=== PATIENT | male | born 1975 | race Caucasian/White ===

== ENCOUNTER 2017-12-18 21:49 | Emergency (ER) | payer BC, SELFPAY ==
[2017-12-18 21:49] VITALS: BP 170/111; PULSE 84; RESP 16; TEMP 36.8; O2SAT 98; BMI 28.7
--- NOTE | 2017-12-18 22:02 | RAD_ITS ---
STUDY: X-RAY CHEST REASON FOR EXAM: Male, 42 years old. Back pain. Known mediastinal AVM. TECHNIQUE: Frontal and lateral views of the chest. COMPARISON: Multiple previous studies including CT scan 11/30/2015. FINDINGS: The lungs are clear and expanded. There is no demonstrated pleural abnormality. No infiltrates. No effusions. Continued increased density behind the heart consistent with the patient's known mediastinal AVM. Normal size heart. Normal corin. Normal visualized pulmonary arteries. Normal visualized aortic arch and descending thoracic aorta. Normal visualized thoracic spine. Normal visualized ribs, clavicles, and shoulders. There is no demonstrated abnormality of the visualized soft tissue structures of the upper abdomen. RAD/Chest PA and Lateral IMPRESSION: No significant change or acute chest disease. Electronically Signed: Chuy Guerrero MD at 22:43 EST , Service support ,
[2017-12-18] MEDS: HYDROcodone Bitartrate/Apap 5/325 Tablet PO (22:11)
[2017-12-18] MEDS: Ondansetron ODT 4 MG Tablet PO (22:11)
--- NOTE | 2017-12-18 22:16 | ED.DCSUM_ITS ---
- ER Visit Summary Date of Service: 12/18/17 Chief Complaint: Right sided thoracic back pain History of Present Illness: The patient is a 42 M 3 of thoracic AVM presents to the emergency department with atraumatic right lateral thoracic back pain. The patient's had the symptoms for the past few days. He states it is worse when he gets up and moves. He states it is a dull ache in the morning but by the end of the day, the pain is rather significant. He states it hurts to touch or band. He denies chest pain or shortness of breath. He denies cough or fever. The patient was recently treated for influenza and finished his Tamiflu yesterday. He states he is really not had a significant cough. He has had no abdominal pain, hematuria, vomiting, or change in bowel habits. He states he has never had pain like this before. Physical Examination: Afebrile, vitals unremarkable. Well-appearing male no acute distress. Head is normocephalic, atraumatic. Pupil's equal round reactive, extraocular muscles intact. Neck supple. Heart regular rate and rhythm. Lungs clear, chest nontender. This is over the right posterior ribs around 10 and 11. There is no rash. There is no step-off. Abdomen soft, nontender, nondistended. No pulsatile mass. Patient has no spinal tenderness in the thoracic or lumbar area, no bony tenderness. Straight leg raise is negative bilaterally. 2+ symmetric lower extremity pulses. 2+ reflexes. No clonus. No weakness of dorsiflexion, plantar flexion, or extensor hallucis longus bilaterally. Test Results: Chest x-ray unremarkable. Screening labs are unremarkable. Urine shows no blood or infection. CT demonstrates constipation, evidence of known AVM, but no acute intra-abdominal process. Emergency Department Course and Treatment: The patient's pain did seem entirely reproducible. It does seem almost entirely muscular. The patient was given oral analgesics and I did obtain a chest x-ray which was normal. Patient and are very uncomfortable, given his medical history, and felt like there could be something else going on. I did discuss options with them. They wanted to pursue further workup including labs and a CT. This is obtained. The patient was given IV antispasmodics with improvement of his pain. His labs are normal. His CT shows constipation, evidence of his known AVM which I do not feel is contributing to his symptoms, but no other acute process. On reevaluation, the patient is resting comfortably. He has a nontender abdomen. There is no rash over his skin. I do feel that this is more likely muscle spasm or even a mild myositis given his recent influenza. I do feel the patient is safe for discharge. He will be given 1 day of analgesics and antispasmodics. Family was counseled on concerning symptoms and reasons to return. The patient will be discharged home. Treatment Plan: [] Disposition: Discharge Impression: 1. Right-sided thoracic spasm 2. Recent influenza This note was generated with [employer] dictation software. It may contain incorrect words, spelling, and punctuation that were not noted in review of the chart prior to signing ED Disposition - Plan for ED Patient: Chief Complaint: Back Instructions: ED Spasm Back No Trauma Prescriptions: Cyclobenzaprine [Flexeril] 10 mg PO TID PRN #20 tab PRN Reason: Muscle Spasm Referrals: Yoandy Crow MD [Primary Care Provider] -
--- NOTE | 2017-12-18 22:47 | CT_ITS ---
STUDY: CT ABDOMEN AND PELVIS WITHOUT CONTRAST REASON FOR EXAM: Male, 42 years old. Back pain RADIATION DOSAGE (If Supplied By Facility): CTDIvol = ( 14.54 ) mGy, DLP = ( 788.25 ) mGycm TECHNIQUE: Transaxial images were obtained from the dome of the diaphragm to the symphysis pubis without oral contrast, and without intravenous contrast. Sagittal and coronal images were reconstructed. Individualized dose optimization techniques were used for this CT. COMPARISON: November 30, [address] scan chest. FINDINGS: There is emphysematous change in the lung bases. There is a partially visualized abnormal appearing process with multiple nodules extending in and around the esophagus which on prior study dating back to March 29, 2015 is suggestive of a large venous plexus surrounding the subcarinal region with the vessel which may be extending from the left side inferior pulmonary vein. The visualized portions of the heart are within normal limits. The liver is homogeneous. The gallbladder is contracted. Normal spleen. Normal pancreas. Normal bilateral adrenal glands. Normal right kidney. Normal left kidney. Normal visualized stomach. Normal small intestine. There is moderate stool in the colon. The appendix is visualized and appears normal. Normal abdominal aorta. Normal inferior vena cava. Normal retroperitoneum. Normal urinary bladder. Normal visualized prostate gland. There is a small umbilical hernia containing fat. There is mild multilevel broad disc bulge, L3-L4 L4-L5 there is mild broad disc bulge with mild to moderate neural foramina narrowing. CT/Abdomen/Pelvis without Cont IMPRESSION: There is a large vascular mass which appears to have an extension from the left pulmonary vein was seen on prior study compatible with a mediastinal vascular malformation. Constipation and diverticulosis no evidence of diverticulitis. Pulmonary emphysema. Mild Degenerative disc disease. Electronically Signed: Rosalind Restrepo MD at 0:35 EST Tel , Service support ,
[2017-12-18 23:11] LABS: Bacteria 0 SEEN /hpf (None Seen); Mucous, Urine 0 SEEN /hpf (<or=2+); Red Blood Cells-Urine 0 SEEN /hpf (0-5); Squamous Epithelial Cells - UA 0 SEEN /hpf (0-5); White Blood Cells 0 SEEN /hpf (0-5)
[2017-12-18 23:13] LABS: Color, Urine Yellow (Yellow); Glucose, Dipstick Normal (Normal); Ketone-Dipstick Negative (Negative); Leukocyte Esterase-Dipstick Negative /ul (Negative); Nitrite-Dipstick Negative (Negative); Occult Blood-Urine Negative /ul (Negative); Protein-Dipstick Negative (Negative); Specific Gravity, Urine 1.015 (1.002-1.030); Urine Bilirubin Dipstick Negative (Negative); Urine Clarity Clear (Clear); Urine Urobilinogen Normal (Normal); Urine pH 6.5 (5.0 - 8.0)
[2017-12-18 23:13] LABS: Absolute Lymphocyte Count 3.34 X10^3/ul (0.83-4.51); Absolute Neutrophil Count 3.6 X10^3/uL (2.0-7.7); Basophil# 0.06 X10^3/uL; Basophil% 0.8 % (0-1); Eosinophil# 0.26 X10^3/uL; Eosinophils% 3.4 % (0-5); Hematocrit 42.3 % (40-54); Hemoglobin 14.2 g/dl (13.0-16.5); Lymphocyte # 3.34 X10^3/ul (4.0); Lymphocyte % 43.3 % (19-41); Mean Corp Hgb Conc 33.6 g/gl (32-36); Mean Corpuscular Volume 89.4 fL (80-94); Mean Platelet Vol. 12.6 fl (6.2-12.0); Monocyte% 6.5 % (0-10); Neutrophil # 3.55 X10^3/uL (2.7-7.7); Neutrophil % 45.9 % (47-70); POSITIVE COUNT NO; POSITIVE DIFFERENTIAL NO; POSITIVE MORPHOLOGY NO; Platelet Count 226 K/mm3 (150-450); RBC Distribution Width CV 12.2 % (11.6-14.6); RBC Distribution Width SD 39.8 fl (35.1-43.9); Red Blood Count 4.73 M/mm3 (4.6-6.2); White Blood Count 7.7 K/mm3 (4.4-11.0)
[2017-12-18 23:19] LABS: Hyaline Cast 0-5 SEEN /lpf (0-5)
[2017-12-18 23:28] LABS: AST(SGOT) 17 U/L (15-37); Alanine Aminotransfer ALT/SGPT 36 U/L (16-61); Albumin, Serum 3.6 g/dL (3.2-5.0); Alkaline Phosphatase 85 U/L (45-117); Anion Gap 5 (5-15); BUN 11 mg/dL (7-18); Bilirubin, Direct 0.07 mg/dL (0.00-0.30); Calcium,Total 8.5 mg/dL (8.5-10.1); Chloride 105 mmol/L (98-107); EST Glomerular Filtration Rate 88 mL/min (>60); Est Glom Filt Rate - Afr Amer 106 mL/min (>60); Estimated Creatinine Clearance 107.78 ml/min; Globulin 3.4 g/dL (2.2-4.2); Glucose 102 mg/dL (74-106); Potassium 3.7 mmol/L (3.5-5.1); Sodium Level 141 mmol/L (136-145)
[2017-12-18] MEDS: LORazepam 2 MG/ML Syringe 0.5 MG IV (23:49)
[2017-12-18 23:51] VITALS: BP 134/90; PULSE 83; RESP 16; O2SAT 96
[2017-12-19] MEDS: HYDROcodone Bitartrate/Apap 5/325 Tablet PO (00:49)
[2017-12-19 00:52] VITALS: BP 127/79; PULSE 77; RESP 16; O2SAT 94
--- NOTE | 2017-12-19 00:52 | ED.RN ---
IV DC'ED, CATHETER INTACT, SMALL GAUZE DRESSING PLACED. DISCHARGE INSTRUCTIONS GIVEN TO AND REVIEWED WITH PATIENT, PATIENT DENIES QUESTIONS OR CONCERNS AND VOICES UNDERSTANDING OF DISCHARGE INSTRUCTIONS. PT AMBULATES OUT OF ROOM WITHOUT DIFFICULTY.
== END 2017-12-19 00:53 | disposition home or self-care (01) ==
PROVIDERS: Emergency Provider Emergency Medicine; Family Provider Family Medicine; PCP Family Medicine
DX: M62.830 Muscle spasm of back (principal); Z87.09 Personal history of other diseases of the respiratory system; Z86.73 Personal history of transient ischemic attack (TIA), and cerebral infarction without residual deficits
CPT/HCPCS: 71046; 74176; 80048; 80076; 81001; 85025; 96374; 99284; A4216

== ENCOUNTER 2018-02-09 22:44 | Emergency (ER) | payer BC, SELFPAY ==
[2018-02-09 22:45] VITALS: BP 150/102; PULSE 78; RESP 15; TEMP 36.7; O2SAT 95; BMI 27.7
[2018-02-09] MEDS: Ipratropium/Albuterol Sulfate 3 ML AMPUL.NEB INHALATION (23:00)
--- NOTE | 2018-02-09 23:01 | ED.DCSUM_ITS ---
- ER Visit Summary Date of Service: 02/09/18 Chief Complaint: Shortness of breath History of Present Illness: The patient is a 42 M who was cleaning the bathroom tonight and inhaled the fumes of the cleaning solution. They did bring the bottle with him and appears the active ingredient as bleach. Patient did reportedly open the windows and turned on fans. He was initially improving but as the night has progressed he feels more short of breath. He tried albuterol inhaler without improvement. He does report cough with occasional sputum production. He denies chest pain. Past history significant for CVA/TIA, asthma, migraines, and mediastinal hemangioma. He is on Eliquis chronically. Physical Examination: Blood pressure is 150/102, temperature 98.1, heart rate 78 , respiratory rate 15, pulse ox 95% room air. Patient sitting upright in bed no acute distress. He speaking full sentences. Head neck examination is normal. Heart is regular rate and rhythm. Lung sounds are grossly clear but slightly diminished. I appreciate no wheezing or rhonchi. Abdomen is soft nontender. Test Results: Two-view chest x-ray is unremarkable. Emergency Department Course and Treatment: Patient was given dose of prednisone and a DuoNeb treatment. Patient states initially he thought that helped his breathing, but now it seems to be about the same. Repeat evaluation lungs are clear with good air movement. Patient is taken off the nasal cannula oxygen he was put on for comfort. Oxygen saturations maintained in the mid 90s. He complains of feeling as if there is something in his throat. On examination he has mild posterior pharyngeal drainage but no tonsillar or uvular enlargement. He is tolerating secretions well. Head of the bed is elevated at only 50?. He is able to tolerate p.o. fluids without difficulty. Patient will continue to use his albuterol inhaler at home if needed and will be given an additional 4 days of prednisone. Treatment Plan: [] Disposition: Discharge Impression: Pneumonitis This note was generated with [employer] dictation software. It may contain incorrect words, spelling, and punctuation that were not noted in review of the chart prior to signing ED Disposition - Plan for ED Patient: Chief Complaint: Shortness of Breath Referrals: Yoandy Crow MD [Primary Care Provider] -
[2018-02-09] MEDS: predniSONE 20 MG Tablet 60 MG PO (23:02)
[2018-02-09 23:03] VITALS: PULSE 78; RESP 14
[2018-02-09 23:04] VITALS: O2SAT 96
--- NOTE | 2018-02-09 23:10 | RAD_ITS ---
STUDY: X-RAY CHEST REASON FOR EXAM: Male, 42 years old. SOB TECHNIQUE: Frontal and lateral views of the chest. COMPARISON: None. FINDINGS: The lungs are clear and expanded. There is no demonstrated pleural abnormality. Normal size heart. Normal mediastinum and corin. Normal visualized pulmonary arteries. Normal visualized aortic arch and descending thoracic aorta. Normal visualized thoracic spine. Remote right rib trauma. There is no demonstrated abnormality of the visualized soft tissue structures of the upper abdomen. RAD/Chest PA and Lateral IMPRESSION: No acute pulmonary findings. Electronically Signed: Lalo Suh MD at 23:36 EDT Tel , Service support ,
--- NOTE | 2018-02-09 23:53 | ED.DEP ---
ED Disposition - Plan for ED Patient: Disposition: Home or Assisted Living Chief Complaint: Shortness of Breath Instructions: ED Inhalation Chemical Prescriptions: Prednisone [Deltasone] 60 mg PO DAILY #12 tablet Referrals: Yoandy Crow MD [Primary Care Provider] - 3-5 Days
[2018-02-10 00:16] VITALS: BP 148/85; PULSE 81; RESP 20; O2SAT 93
== END 2018-02-10 00:16 | disposition home or self-care (01) ==
PROVIDERS: Emergency Provider Emergency Medicine; Family Provider Family Medicine; PCP Family Medicine
DX: J18.9 Pneumonia, unspecified organism (principal); J45.909 Unspecified asthma, uncomplicated; I69.354 Hemiplegia and hemiparesis following cerebral infarction affecting left non-dominant side; G43.909 Migraine, unspecified, not intractable, without status migrainosus; D18.03 Hemangioma of intra-abdominal structures; Z79.01 Long term (current) use of anticoagulants; Z79.899 Other long term (current) drug therapy
CPT/HCPCS: 71046; 94640; 99283

== ENCOUNTER 2018-04-06 17:39 | Emergency (ER) | payer BC, SELFPAY ==
[2018-04-06 17:39] VITALS: BP 171/100; PULSE 77; RESP 16; TEMP 36.4; O2SAT 95; BMI 26.2
--- NOTE | 2018-04-06 18:39 | ED.VISSUMM ---
- ER Visit Summary Date of Service: 04/06/18 Chief Complaint: Laceration History of Present Illness: The patient is a 42 M presenting for evaluation secondary laceration. Patient states that he cut himself on his head tremors in his left ankle. Tetanus status is up-to-date. Patient states that he is on Eliquis for treatment of AVM Physical Examination: Physical exam unremarkable other than examination of the left ankle. Over the lateral portion of the ankle there is a 3 cm laceration without any evidence of involvement of the underlying tissues. Test Results: None indicated Emergency Department Course and Treatment: Patient presented secondary to a laceration. Tetanus was already up-to-date. Laceration was anesthetized using 5 cc 1% lidocaine. It was copiously irrigated with normal saline. Wound was explored through full range of motion there was no evidence of foreign bodies. Wound was then approximated using 5 simple interrupted 4-0 nylon sutures. Good approximation patient tolerated this well. Patient will follow up with primary care for suture removal in 5-7 days Disposition: Discharge Impression: 1. 3 cm left leg laceration 2. Laceration repair This note was generated with [employer] dictation software. It may contain incorrect words, spelling, and punctuation that were not noted in review of the chart prior to signing ED Disposition - Plan for ED Patient: Disposition: Home or Assisted Living Chief Complaint: Laceration Diagnosis: Leg laceration Instructions: ED Laceration All Referrals: Yoandy Crow MD [Primary Care Provider] - 7 Days for suture removal
== END 2018-04-06 19:10 | disposition home or self-care (01) ==
PROVIDERS: Emergency Provider Emergency Medicine; Family Provider Family Medicine; PCP Family Medicine
DX: S91.012A Laceration without foreign body, left ankle, initial encounter (principal); W45.8XXA Other foreign body or object entering through skin, initial encounter; Y93.H2 Activity, gardening and landscaping; Y92.9 Unspecified place or not applicable; Z79.01 Long term (current) use of anticoagulants; Q27.30 Arteriovenous malformation, site unspecified
CPT/HCPCS: 12002; 99284

== ENCOUNTER → 2018-04-17 06:03 | Outpatient (CLI) | payer BC, SELFPAY ==
[2018-04-17 07:54] LABS: Hematocrit 44.1 % (40-54); Hemoglobin 15.2 g/dl (13.0-16.5); Mean Corp Hgb Conc 34.5 g/gl (32-36); Mean Corpuscular Volume 89.8 fL (80-94); Mean Platelet Vol. 13.4 fl (6.2-12.0); Platelet Count 222 K/mm3 (150-450); RBC Distribution Width CV 12.2 % (11.6-14.6); RBC Distribution Width SD 39.8 fl (35.1-43.9); Red Blood Count 4.91 M/mm3 (4.6-6.2); White Blood Count 7.5 K/mm3 (4.4-11.0)
[2018-04-17 08:00] LABS: Scan Indicated on CBC? Y/N NO
[2018-04-17 08:23] LABS: ALB/GLOB Ratio 1.1 RATIO (0.9-2.4); AST(SGOT) 22 U/L (15-37); Alanine Aminotransfer ALT/SGPT 29 U/L (16-61); Albumin, Serum 3.9 g/dL (3.2-5.0); Alkaline Phosphatase 81 U/L (45-117); Anion Gap 7 (5-15); BUN 14 mg/dL (7-18); BUN/Creat Ratio 12.6 RATIO (10-20); Calcium,Total 8.8 mg/dL (8.5-10.1); Chloride 104 mmol/L (98-107); Creatinine, Serum 1.11 mg/dL (0.70-1.30); EST Glomerular Filtration Rate 78 mL/min (>60); Est Glom Filt Rate - Afr Amer 94 mL/min (>60); Globulin 3.7 g/dL (2.2-4.2); Glucose 79 mg/dL (74-106); Potassium 3.8 mmol/L (3.5-5.1); Protein, Total 7.6 g/dL (6.4-8.2); Sodium Level 141 mmol/L (136-145)
== END ==
PROVIDERS: Family Provider Family Medicine; PCP Family Medicine; Visit Provider Family Medicine
DX: Q27.39 Arteriovenous malformation, other site (principal)
CPT/HCPCS: 36415; 80053; 85027

== ENCOUNTER 2018-12-01 15:02 | Emergency (ER) | payer BC, SELFPAY ==
[2018-12-01 15:03] VITALS: BP 166/101; PULSE 75; RESP 14; TEMP 36.6; O2SAT 97; BMI 27.6
--- NOTE | 2018-12-01 15:18 | CT_ITS ---
STUDY: CT BRAIN WITHOUT CONTRAST REASON FOR EXAM: Male, 43 years old. Headache for 4 days RADIATION DOSAGE (If Supplied By Facility): CTDIvol = ( 44.99 ) mGy, DLP = ( 829.85 ) mGycm TECHNIQUE: Transaxial CT imaging of the brain was performed without administration of intravenous contrast material. Individualized dose optimization techniques were used for this CT. COMPARISON: 11/30/2015 FINDINGS: Normal soft tissue structures. Normal calvarium. Normal size ventricles and extra-axial spaces for the patient's age. Normal white matter tracts of the cerebral hemispheres. Normal basal ganglia and thalami. Normal brainstem. Small low density foci of the cerebellum, right more than left similar since the prior study. There is no intracranial hemorrhage. There are no findings of an acute ischemic infarction. Normal visualized paranasal sinuses. CT/Brain/Head without Contrast IMPRESSION: 1. No acute intracranial hemorrhage or mass effect. 2. Stable bilateral cerebellar lacunar infarctions. Electronically Signed: Shabbir Bhatti MD at 16:10 EST , Service support ,
--- NOTE | 2018-12-01 16:19 | ED.VISSUMM ---
- ER Visit Summary Date of Service: 12/01/18 Chief Complaint: Headache History of Present Illness: The patient is a 43 M with a headache for 5 days. This started after he was flipped during taekwondo. He landed on his bilateral scapulae but complains of frontal headache. He reports decreased sleep and occasional slurring of his words. No loss of consciousness. No vomiting. No amnesia. No other symptoms. Patient does take Eliquis for what he describes as AVM in his chest. Patient denies any chest pain or other symptoms. Physical Examination: Afebrile and vital signs unremarkable. Head and neck grossly atraumatic. Neck is nontender. HEENT exam unremarkable. Cranial nerves grossly intact. Good strength and sensation. Otherwise exam unremarkable. Test Results: CT brain showed no acute abnormalities. Emergency Department Course and Treatment: Patient presents with a headache after a traumatic injury. I suspect he had a concussion. His exam is reassuring but given that he is on Eliquis, I did a CT which was unremarkable. I advised the patient to stop taekwondo and contact sports if he is taking Eliquis. He was given concussion precautions and will follow up with his family doctor. Treatment Plan: As above Disposition: Discharge Impression: 1. Concussion without loss of consciousness This note was generated with [employer] dictation software. It may contain incorrect words, spelling, and punctuation that were not noted in review of the chart prior to signing ED Disposition - Plan for ED Patient: Referrals: Yoav Almanzar MD [Primary Care Provider] -
--- NOTE | 2018-12-01 16:22 | ED.DCSUM_ITS ---
- ER Visit Summary Date of Service: 12/01/18 Chief Complaint: Headache History of Present Illness: The patient is a 43 M with a headache for 5 days. This started after he was flipped during taekwondo. He landed on his bilateral scapulae but complains of frontal headache. He reports decreased sleep and oc casional slurring of his words. No loss of consciousness. No vomiting. No amnesia. No other symptoms. Patient does take Eliquis for what he describes as AVM in his chest. Patient denies any chest pain or other symptoms. Physical Examination: Afebrile and vital signs unremarkable. Head and neck grossly atraumatic. Neck is nontender. HEENT exam unremarkable. Cranial nerves grossly intact. Good strength and sensation. Otherwise exam unremarkable. Test Results: CT brain showed no acute abnormalities. Emergency Department Course and Treatment: Patient presents with a headache after a traumatic injury. I suspect he had a concussion. His exam is reassuring but given that he is on Eliquis, I did a CT which was unremarkable. I advised the patient to stop taekwondo and contact sports if he is taking Eliquis. He was given concussion precautions and will follow up with his family doctor. Treatment Plan: As above Disposition: Discharge Impression: 1. Concussion without loss of consciousness This note was generated with [employer] dictation software. It may contain incorrect words, spelling, and punctuation that were not noted in review of the chart prior to signing ED Disposition - Plan for ED Patient: Referrals: Yoav Almanzar MD [Primary Care Provider] -
--- NOTE | 2018-12-01 16:22 | ED.DEP ---
ED Disposition - Plan for ED Patient: Instructions: ED Concussion Referrals: Yoav Almanzar MD [Primary Care Provider] -
[2018-12-01 16:32] VITALS: BP 141/92; PULSE 63; RESP 17; O2SAT 94
--- NOTE | 2018-12-01 16:33 | ED.RN ---
DISCHARGE INSTRUCTIONS GIVEN TO AND REVIEWED WITH PATIENT, PATIENT DENIES QUESTIONS OR CONCERNS AND VOICES UNDERSTANDING OF DISCHARGE INSTRUCTIONS. PT AMBULATES OUT OF ROOM WITHOUT DIFFICULTY.
== END 2018-12-01 16:33 | disposition home or self-care (01) ==
PROVIDERS: Emergency Provider Emergency Medicine; Family Provider Family Medicine; PCP Family Medicine
DX: S06.0X0A Concussion without loss of consciousness, initial encounter (principal); X58.XXXA Exposure to other specified factors, initial encounter; Y93.75 Activity, martial arts; Y92.9 Unspecified place or not applicable
CPT/HCPCS: 70450; 99282

== ENCOUNTER 2018-12-13 00:11 | Observation (INO) | payer BC, SELFPAY ==
[2018-12-13] VITALS (10 sets, daily range): BP systolic 122–181; BP diastolic 73–118; PULSE 68–98; RESP 14–20; TEMP 36.4–36.9; O2SAT 94–99; BMI 27.0
--- NOTE | 2018-12-13 00:24 | RAD_ITS ---
HISTORY: CP EXAM:XR Chest 2 Views: COMPARISON: 02/09/[address] chest 11/30/2015 FINDINGS: EKG leads in place. With comparison previous, no definite change. Chronic appearing middle mediastinal mass and left hilar enlargement. Prominent lung volumes. No acute infiltrate seen. No vascular congestion or pleural effusion. No pneumothorax. RAD/Chest PA and Lateral IMPRESSION: 1. No definite acute disease or significant change. 2. Chronic appearing mediastinal mass and left hilar enlargement. at 0308 Reported and signed by: Jose Moreno MD Electronically Signed: Jose Moreno, at 3:07 EST Tel , Service support ,
--- NOTE | 2018-12-13 00:24 | EKG12_ITS ---
Test Reason : REPEAT Blood Pressure : / mmHG Vent. Rate : 067 BPM Atrial Rate : 067 BPM P-R Int : 148 ms QRS Dur : 094 ms QT Int : 408 ms P-R-T Axes : 037 017 016 degrees QTc Int : 431 ms Normal sinus rhythm Normal ECG Confirmed by MANUEL BAPTISTE, MICHAEL ([id number]), associate entertainment editor MARVIN CAGE ([id number]) on 12/16/2018 5:19:21 PM Referred By: WALTER Confirmed By:MICHAEL JACKSON MD
--- NOTE | 2018-12-13 00:34 | ED.VISSUMM ---
- ER Visit Summary Date of Service: 12/13/18 Chief Complaint: Chest pain History of Present Illness: The patient is a 43 M presenting with left-sided nonradiating chest pain that started at around 8 PM last evening. It has been fairly constant. He describes it as a pulsating palpitation like feeling. No pressure or aching. No shortness of breath or diaphoresis. He was at rest when it started. It was not worse with exertion nor was it pleuritic. He denies lower extremity pain or swelling. Denies history of PE or DVT. He is on Eliquis because he had a TIA several years ago but denies any known history of atrial fibrillation. He has never had cardiac issues otherwise. No family history of cardiac disease at young age. He has never smoked. 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 He was actually working on a project for work when his pain started today. He feels strongly that his pain is secondary to anxiety. Physical Examination: He is hypertensive but other vitals are within normal limits. He is not in distress. Neck is supple. Heart tones are regular and without murmur. Lungs are clear bilaterally. Abdomen is soft and nontender. No tenderness along lower extremity venous system, palpable cords, or evidence of DVT. He is awake and alert. Mental status is normal. Normal thought content. No suicidal thoughts or ideation. Test Results: CBC and BMP normal. EKG unremarkable. Chest x-ray interpreted independently by me is negative for acute process. There are several chronic changes that do not appear much different than his last imaging. Troponin was indeterminate however at 0.05 and his pain started only approximately 4 hours ago. I do therefore feel that he meets criteria for admission/serial enzymes. His pain returned at one point while he was here in the emergency department and an EKG was repeated. It appears again normal. No ischemic changes. Emergency Department Course and Treatment: He was given aspirin as well as hydralazine because his blood pressure was 180 systolic on arrival. He looks much better on reexamination and is now pain-free. 2- EKGs. 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 He states that that is the last time he had a chest CT but he was told that it was a benign issue that would not require intervention. I discussed the case with the hospitalist and the plan will be to admit to telemetry however, we are all in agreement that repeating a CT angiogram is reasonable at this point given the location of his pain. The results of this are still pending. Treatment Plan: Plan for telemetry admission depending on results of CT angiogram Disposition: Admit, stable Impression: Initial encounter chest pain rule out NH, indeterminate troponin level This note was generated with [employer] dictation software. It may contain incorrect words, spelling, and punctuation that were not noted in review of the chart prior to signing ED Disposition - Plan for ED Patient:
[2018-12-13 00:35] LABS: Absolute Lymphocyte Count 4.58 X10^3/ul (0.83-4.51); Absolute Neutrophil Count 4.3 X10^3/uL (2.0-7.7); Basophil# 0.05 X10^3/uL; Basophil% 0.5 % (0-1); Hematocrit 44.9 % (40-54); Lymphocyte # 4.58 X10^3/ul (4.0); Lymphocyte % 46.7 % (19-41); Mean Corp Hgb Conc 33.4 g/gl (32-36); Mean Corpuscular Hgb 30.1 pg (27.0-32.0); Mean Platelet Vol. 12.4 fl (6.2-12.0); Monocyte# 0.71 X10^3/uL; Monocyte% 7.2 % (0-10); Neutrophil # 4.25 X10^3/uL (2.7-7.7); Neutrophil % 43.4 % (47-70); Platelet Count 255 K/mm3 (150-450); RBC Distribution Width CV 12.6 % (11.6-14.6); RBC Distribution Width SD 41.3 fl (35.1-43.9); Red Blood Count 4.99 M/mm3 (4.6-6.2); White Blood Count 9.8 K/mm3 (4.4-11.0)
[2018-12-13] MEDS: Aspirin 81 MG TAB.CHEW 324 MG PO (00:35)
[2018-12-13 00:36] LABS: POSITIVE COUNT NO; POSITIVE DIFFERENTIAL NO; POSITIVE MORPHOLOGY NO
[2018-12-13 00:59] LABS: Anion Gap 6 (5-15); BUN 14 mg/dL (7-18); BUN/Creat Ratio 12.8 RATIO (10-20); Calcium,Total 8.9 mg/dL (8.5-10.1); Chloride 103 mmol/L (98-107); Creatinine, Serum 1.09 mg/dL (0.70-1.30); EST Glomerular Filtration Rate 79 mL/min (>60); Est Glom Filt Rate - Afr Amer 96 mL/min (>60); Estimated Creatinine Clearance 100.79 ml/min; Glucose 91 mg/dL (74-106); Potassium 3.5 mmol/L (3.5-5.1); Sodium Level 138 mmol/L (136-145)
--- NOTE | 2018-12-13 01:42 | EKG12_ITS ---
Test Reason : CP Blood Pressure : / mmHG Vent. Rate : 070 BPM Atrial Rate : 070 BPM P-R Int : 142 ms QRS Dur : 092 ms QT Int : 402 ms P-R-T Axes : 031 016 022 degrees QTc Int : 434 ms Normal sinus rhythm Normal ECG Confirmed by MANUEL BAPTISTE, MICHAEL ([id number]), publication editor MARVIN CAGE ([id number]) on 12/16/2018 5:19:39 PM Referred By: SOPHIA Confirmed By:MICHAEL JACKSON MD
[2018-12-13] MEDS: hydrALAZINE 20 MG/ML Vial 10 MG IV (01:47)
--- NOTE | 2018-12-13 01:51 | CT_ITS ---
STUDY: CTA CHEST REASON FOR EXAM: Male, 43 years old. Chest pain RADIATION DOSAGE (If Supplied By Facility): CTDIvol = ( 17.34 ) mGy, DLP = ( 580.15 ) mGycm TECHNIQUE: The examination was performed with the intravenous administration of 100ML ml of Isovue 370 contrast material. Post-processing of the angiographic images was performed, with multiplanar reformation and 3D reconstruction. COMPARISON: To 916 FINDINGS: Normal enhancement of the main pulmonary artery and right and left pulmonary arteries. Normal enhancement of the bilateral peripheral pulmonary arteries. There is no demonstrated pulmonary embolism. There is a subcarinal hypervascular mass with multiple punctate calcifications which has been noted on prior studies and has not changed. Normal thoracic aorta and visualized great vessels. There is no demonstrated aortic dissection. Normal heart and pericardium. There is no pathologic mediastinal adenopathy appreciated otherwise. Normal hilar regions. Normal visualized trachea and bronchi. Multiple blebs are noted in the left lower lobe. Normal pulmonary parenchyma. Normal pleura. Normal chest wall structures. Normal osseous structures. Normal visualized upper abdomen. CT/CTA Chest W/WO Contrast IMPRESSION: There is no demonstrated pulmonary embolism. There is a subcarinal hypervascular mass with multiple punctate calcifications which has been noted on prior studies and has not changed. There is no demonstrated aortic dissection. Normal heart and pericardium. There is no pathologic mediastinal adenopathy appreciated otherwise. Multiple blebs are noted in the left lower lobe. Electronically Signed: Neptali Higgins MD at 3:37 EST , Service support ,
[2018-12-13] MEDS: 0.9% Normal Saline 1,000 ML 999 ML IV (02:29)
[2018-12-13] MEDS: Ondansetron 4 MG/2 ML Vial IV (02:29)
[2018-12-13 04:01] LABS: T4 Free Direct 0.91 ng/dL (0.76-1.46)
--- NOTE | 2018-12-13 04:07 | EKG12_ITS ---
Test Reason : CP Blood Pressure : / mmHG Vent. Rate : 072 BPM Atrial Rate : 072 BPM P-R Int : 144 ms QRS Dur : 090 ms QT Int : 384 ms P-R-T Axes : 029 014 020 degrees QTc Int : 420 ms Normal sinus rhythm Normal ECG Confirmed by MAYRA BAPTISTE, OBEY ([id number]), corporate recycling manager MARVIN CAGE ([id number]) on 12/17/2018 4:56:17 PM Referred By: HEATHER Confirmed By:OBEY NUNEZ MD
[2018-12-13] MEDS: Atorvastatin Calcium 80 MG Tablet PO (05:02)
[2018-12-13] MEDS: 0.9% NaCl Peripheral Flush Adult/Peds IV (05:02)
[2018-12-13] MEDS: Lisinopril 20 MG Tablet PO (05:02)
[2018-12-13] MEDS: Aspirin E.C. 81 MG Tablet PO (05:02)
[2018-12-13 05:12] LABS: Prothrombin Time (Protime)PT. 13.1 SECONDS (11.7-14.9)
[2018-12-13 05:13] LABS: Partial Thromboplast Time 29.7 Seconds (24.1-36.2)
--- NOTE | 2018-12-13 06:00 | PCM.HP.STD ---
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 His pain was located at the left side of his chest and it was nonradiating. Associated with his symptoms is nausea without vomiting. He denied sweating. He describes his pain as episodic. His pain is dull and sharp. He denies any ameliorating or aggravating factor. He was working on his computer when his pain started. He reported that recently he has been stressed at work. He reported that when his pain comes on he sees stars in the room. Because of history of thoracic AVM emergency department doctor did a CTA of the chest which was unremarkable At emergency department his troponin was elevated. For the patient complains of cold intolerance for which TSH was ordered at emergency departments. TSH returned elevated. 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 History of stroke with residual effects (Chronic) Allergies No Known Allergies Allergy (Verified 12/13/18 00:16) Home Medications: Ambulatory Orders Medication Instructions Recorded Apixaban [Eliquis] 5 mg PO BID #60 tablet 12/01/15 Surgical History: no surgical history Psychiatric History: Anxiety Lives: Spouse/ Significant Other Smoking Status: Never smoker Tobacco Use: Non-smoker - *Family History Maternal History Items: Cancer - Breast CA in mother, 50s. Maternal grandfather had heart attack when he was in his 60s. Paternal History Items: Heart Disease, - - Parkinson's disease. Review of Systems Constitutional: Denies: Chills, Fever, Weight Change HEENT: Denies: Head Aches, Sinus Congestion, Sinus Drainage Cardiovascular: Reports: Chest Pain Respiratory: Denies: Cough, Shortness of breath at rest, Sputum production Gastrointestinal: Reports: Nausea. Denies: Abdominal Pain, Vomiting Genitourinary: Denies: Dysuria Musculoskeletal: Denies: Joint Pain, Joint Tenderness Skin: Denies: Rash, Wounds Neurological: Denies: Numbness, Tingling, Focal weakness Psychiatric: Reports: Anxiety. Denies: Depression, Homicidal Ideations, Suicidal Ideations Hematologic/ Lymphatic: Denies: Easy Bruising, Easy Bleeding VTE Information - Inpt Only VTE Present on Admission: No VTE Mechan Device Prophylaxis: None VTE Pharm Prophylaxis ordered?: No Reason prophylaxis not ordered:: Treatment Not Indicated - Continue Eliquis for AVM Patient Problems: Active and Suspected Problems Chest pain (Acute) - Physical Exam General: Alert, Oriented x3, Cooperative HEENT: Atraumatic, PERRLA, EOMI, Normocephalic Neck: Supple, No JVD, Negative Carotid Bruits Lungs: Clear to auscultation, Normal air movement Cardiovascular: Regular rate, No murmurs Abdomen: Bowel Sounds Present, Soft, Non Tender Extremities: No edema, Capillary Refill Less than 3 Seconds Skin: No rashes, No breakdown Musculoskeletal: No Tenderness to Palpation of Joints or Extremities Neurological: Neuro grossly intact Psych/Mental Status: Anxious Vital Signs Temp Pulse Resp BP Pulse Ox 97.6 F L 68 16 140/83 H 94 12/13/18 04:30 12/13/18 04:30 12/13/18 04:30 12/13/18 04:30 12/13/18 04:30 Oxygen Flow Rate (L/min) 2 Oxygen Delivery Method Room Air Weight: 94.3 kg Body Mass Index (BMI) 27.0 Finger Stick Blood Glucose 88 Laboratory Tests Past 24 Hrs 12/13/18 12/13/18 12/13/18 00:25 00:25 01:55 WBC 9.8 RBC 4.99 Hgb 15.0 Hct 44.9 MCV 90.0 MCH 30.1 MCHC 33.4 RDW 12.6 RDW Differential 41.3 Plt Count 255 MPV 12.4 H Immature Gran % (Auto) 0.200 Neut % (Auto) 43.4 L Lymph % (Auto) 46.7 H [place] % (Auto) 7.2 Eos % (Auto) 2.0 Baso % (Auto) 0.5 Absolute Neuts (auto) 4.3 Absolute Lymphs (auto) 4.58 H Total Counted Not Reportable PT 13.1 INR 1.0 APTT 29.7 Sodium 138 Potassium 3.5 Chloride 103 Carbon Dioxide 29.0 Anion Gap 6 BUN 14 Creatinine 1.09 Estim Creat Clear Calc 100.79 Est GFR (MDRD) Af Amer 96 Est GFR (MDRD) Non-Af 79 BUN/Creatinine Ratio 12.8 Glucose 91 Calcium 8.9 Troponin I 0.056 H TSH 5.20 H Free T4 12/13/18 03:35 WBC RBC Hgb Hct MCV MCH MCHC RDW RDW Differential Plt Count MPV Immature Gran % (Auto) Neut % (Auto) Lymph % (Auto) [place] % (Auto) Eos % (Auto) Baso % (Auto) Absolute Neuts (auto) Absolute Lymphs (auto) Total Counted PT INR APTT Sodium Potassium Chloride Carbon Dioxide Anion Gap BUN Creatinine Estim Creat Clear Calc Est GFR (MDRD) Af Amer Est GFR (MDRD) Non-Af BUN/Creatinine Ratio Glucose Calcium Troponin I 0.066 H TSH Free T4 0.91 Assessment/Plan All Active Problems Chest pain (Acute) TIA (transient ischemic attack) (Resolved) The patient is a 43 year old M with a significant history of a TIA; hypertension and thoracic AVM who presented to the emergency department because of progressively worsening chest pain; and with elevated troponin and TSH. Chest pain Admit to a monitored bed on PCU CXR independently reviewed confirms no acute cardiopulmonary process but with mediastinal mass which is chronic. Follow-up CTA showed mediastinal mass is unchanged. EKG independently reviewed confirms sinus rhythm Old CTA was reviewed and showed medicine of mass. ASA 81 mg p.o. daily Morphine as needed for pain We will check lipid panel. High intensity statin x1 dose ordered. Serial cardiac enzymes Stat EKG as needed for chest pain Will Start patient on lisinopril because of concomitant hypertension. Hydralazine as needed ordered. Treadmill Stress test in the AM if the cardiac enzymes are not severely elevated Hypertension. Patient's reported that patient has had elevated blood pressure multiple times outpatient and after each time the plan plan was to watch his blood pressure. Because of multiple elevated blood pressure it is probable that patient has hypertension. We will start patient on lisinopril. Hydralazine as needed. Trend blood pressure and adjust blood pressure medication Elevated TSH Patient is noted to have elevated TSH. Free T4 ordered return unremarkable. Will order free T3. AVM Reportedly patient had a TIA and workup at that time revealed mediastinal AVM. Eliquis continued DVT prophylaxis: Not indicated in the setting of the patient on Eliquis for AVM. Eliquis continued. Code Visit OBSV E&M: 46475 Initial observation care L3
[2018-12-13 06:45] LABS: Hematocrit 43.1 % (40-54); Hemoglobin 14.8 g/dl (13.0-16.5); Mean Corp Hgb Conc 34.3 g/gl (32-36); Mean Corpuscular Hgb 30.7 pg (27.0-32.0); Mean Corpuscular Volume 89.4 fL (80-94); Mean Platelet Vol. 12.5 fl (6.2-12.0); Platelet Count 221 K/mm3 (150-450); RBC Distribution Width CV 12.4 % (11.6-14.6); RBC Distribution Width SD 40.4 fl (35.1-43.9); Red Blood Count 4.82 M/mm3 (4.6-6.2); White Blood Count 7.1 K/mm3 (4.4-11.0)
[2018-12-13 06:46] LABS: Scan Indicated on CBC? Y/N NO
[2018-12-13 07:22] LABS: Anion Gap 7 (5-15); BUN 11 mg/dL (7-18); BUN/Creat Ratio 11.4 RATIO (10-20); Calcium,Total 8.5 mg/dL (8.5-10.1); Chloride 107 mmol/L (98-107); Creatinine, Serum 0.96 mg/dL (0.70-1.30); EST Glomerular Filtration Rate 91 mL/min (>60); Est Glom Filt Rate - Afr Amer 110 mL/min (>60); Estimated Creatinine Clearance 114.44 ml/min; Free T3 3.4 pg/mL (2.18-3.98); Glucose 90 mg/dL (74-106); Potassium 3.8 mmol/L (3.5-5.1); Sodium Level 139 mmol/L (136-145)
--- NOTE | 2018-12-13 10:34 | STRESSREP_ITS ---
Stress Test Report Date: 12-13-2018 Procedure: Exercise tolerance test/imaging study Indications: Chest pain Consent: Per the patient Procedure: The patient exercised on a Rashaad protocol for 10 minutes completing Stage III and 1 minute of stage IV achieving a peak heart rate of 187 bpm (104 % predicted maximal heart rate) with a peak blood pressure 200/80 mmHg and a peak MET capacity of At 11 METs. The baseline ECG demonstrated . The peak exercise ECG demonstrated normal sinus rhythm with no obvious ECG changes . There were no cardiac dysrhythmias pretest, during exercise, or recovery. The functional capacity was considered good . There was no complaint of chest discomfort during exercise or recovery. The examination was discontinued secondary to dyspnea . Impression: 1. Technically adequate (percent predicted maximal heart rate greater than 85%) exercise tolerance test 2. Peak exercise ECG with no obvious ECG changes 3. There were no cardiac dysrhythmias pretest, during exercise, or recovery 4. Nuclear images pending Myocardial perfusion imaging study: Technique: The patient was injected with 12 mCi of technetium 99m Cardiolite and subsequently rest SPECT Cardiolite nuclear imaging was obtained in the horizontal long, vertical long, and short axis views. The patient exercised on a Rashaad protocol for 10 minutes completing Stage III and 1 minute of Stage IV achieving a peak heart rate of 187 bpm (104 % predicted maximal heart rate) with a peak blood pressure 200/80 mmHg and a peak MET capacity of 11 METs. The patient was injected with 34.3 mCi of technetium 99m Cardiolite and subsequently stress SPECT Cardiolite nuclear imaging was obtained in the horizontal long, vertical long, and short axis views. A gated Cardiolite study at peak stress was obtained. Interpretation: Rest and stress SPECT Cardiolite nuclear imaging status post realignment, normalization, and attenuation correction, demonstrates the appearance of relative uniform tracer uptake and myocardial perfusion appearing within normal limits. There is end systolic thickening and brightening. The gated Cardiolite study demonstrates myocardial thickening and inward wall motion. The reported LVEF is 64 %. Impression: 1. Rest and stress SPECT Cardiolite nuclear imaging demonstrate relative uniform tracer uptake and myocardial perfusion appearing within normal limits. 2. The gated Cardiolite study reports an LVEF of 64 %. This note was generated with [employer] software. It may contain incorrect words, spelling, and punctuation that were not noted in checking the note before signing.
[2018-12-13] MEDS: APIXABAN 5 MG TABLET PO (11:37)
--- NOTE | 2018-12-13 11:44 | DCINST_ITS ---
- Discharge Diagnoses Current Active Problems: Current Active and Chronic Problems Chest pain (Acute) Reason(s) for Visit for Discharge Instructions: Chest pain You will use the following diet at home:: Cardiac Your food should be the consistency of: Regular Your liquids should be the consistency of: Regular/Thin Discharge Activity: Return to Normal Activity Additional Instructions: Follow-up with your primary care doctor within 2 weeks. You will need to repeat your thyroid function test in 4-6 weeks. Continue to take all your medications as prescribed. Measure your blood pressure daily and show a log of yoiur pressures to your primary doctor. Allergies/Adverse Reactions: Allergies No Known Allergies Allergy (Verified 12/13/18 00:16) Medications to take at Discharge Apixaban [Eliquis] 5 mg PO BID #60 tablet 12/01/15 Lisinopril [Zestril] 20 mg PO DAILY #30 tablet 12/13/18 The following prescriptions were given: Lisinopril [Zestril] 20 mg PO DAILY #30 tablet Primary Care Physician: Yoav Almanzar MD [Primary Care Provider] - Please follow up with your Primary Care Physician in: as scheduled Test Results: Test results from this visit will be discussed in further detail at your follow- up appointment, if applicable. Proposed Discharge Date: 12/13/18
--- NOTE | 2018-12-13 12:13 | PCM.DC.SUM ---
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 History of stroke with residual effects (Chronic) Hospital Course and Treatment Imaging Results: 12/13/18 05:55 Nuclear Stress Test - Treadmil [NM] AM (NON MEDS) None Operations: None Procedures: Stress test Summary of Care Provided: The patient is a 43 year old M past medical history of TIA, hypertension, thoracic AVM, on Eliquis who presented to the emergency department with complaints of worsening chest pain that started 4 hours prior to his admission. Chest pain was associated with nausea but no vomiting or diaphoresis. Patient admits to being very stressed out at work. CT of the chest was unremarkable in the emergency department. His troponin was very mildly elevated. Patient was admitted to telemetry bed, monitored, troponins remained marginally elevated. He had a TSH done that was 5.2, free T4 and free T3 were however normal. Denied any weight gain or constipation or dry skin or fatigue. He has underwent an exercise stress test that was negative. He was recommended to follow-up with his primary care doctor for repeat TSH in 4-6 weeks. Subjective: On the day of discharge, patient was seen and examined. Denied any new complaints. Stress test was negative. I discussed more than 20 minutes on patient's plan of care going forward. - Physical Exam General: Alert, Oriented x3, Cooperative, No apparent distress HEENT: Atraumatic, PERRLA, EOMI, Normocephalic Oral: Moist Mucosa Neck: Supple, No JVD, Negative Carotid Bruits Lungs: Clear to auscultation, Normal air movement Cardiovascular: Regular rate, Regular Rhythm, Normal S1, Normal S2, No murmurs Abdomen: Bowel Sounds Present, Soft, Non Tender, Non-Distended, No Hepato-splenomegaly Extremities: No edema Skin: No rashes, No breakdown Musculoskeletal: No Tenderness to Palpation of Joints or Extremities Lymphatic: No Cervical, Supraclavicular, or Inguinal Adenopathy Neurological: Cranial nerves II-XII grossly intact, Neuro grossly intact Psych/Mental Status: Normal Affect, Appropriate Vital Signs Temp Pulse Resp BP Pulse Ox 98.5 F 71 17 122/73 H 95 12/13/18 09:50 12/13/18 11:51 12/13/18 09:50 12/13/18 09:50 12/13/18 09:50 Oxygen Flow Rate (L/min) 2 Oxygen Delivery Method Room Air Weight: 94.3 kg Body Mass Index (BMI) 27.0 Finger Stick Blood Glucose 88 Intake and Output for Last 24 Hours 12/11/18 12/12/18 12/13/18 23:59 23:59 23:59 Intake Total 650 / 650 Balance 650 / 650 Laboratory Tests Past 24 Hrs 12/13/18 12/13/18 12/13/18 00:25 00:25 01:55 WBC 9.8 RBC 4.99 Hgb 15.0 Hct 44.9 MCV 90.0 MCH 30.1 MCHC 33.4 RDW 12.6 RDW Differential 41.3 Plt Count 255 MPV 12.4 H Immature Gran % (Auto) 0.200 Neut % (Auto) 43.4 L Lymph % (Auto) 46.7 H [place] % (Auto) 7.2 Eos % (Auto) 2.0 Baso % (Auto) 0.5 Absolute Neuts (auto) 4.3 Absolute Lymphs (auto) 4.58 H Total Counted Not Reportable PT 13.1 INR 1.0 APTT 29.7 Sodium 138 Potassium 3.5 Chloride 103 Carbon Dioxide 29.0 Anion Gap 6 BUN 14 Creatinine 1.09 Estim Creat Clear Calc 100.79 Est GFR (MDRD) Af Amer 96 Est GFR (MDRD) Non-Af 79 BUN/Creatinine Ratio 12.8 Glucose 91 Calcium 8.9 Troponin I 0.056 H TSH 5.20 H Free T4 Free T3 pg/dL 12/13/18 12/13/18 12/13/18 03:35 06:30 06:30 WBC 7.1 RBC 4.82 Hgb 14.8 Hct 43.1 MCV 89.4 MCH 30.7 MCHC 34.3 RDW 12.4 RDW Differential 40.4 Plt Count 221 MPV 12.5 H Immature Gran % (Auto) Neut % (Auto) Lymph % (Auto) [place] % (Auto) Eos % (Auto) Baso % (Auto) Absolute Neuts (auto) Absolute Lymphs (auto) Total Counted PT INR APTT Sodium Potassium Chloride Carbon Dioxide Anion Gap BUN Creatinine Estim Creat Clear Calc Est GFR (MDRD) Af Amer Est GFR (MDRD) Non-Af BUN/Creatinine Ratio Glucose Calcium Troponin I 0.066 H 0.070 H TSH Free T4 0.91 Free T3 pg/dL 12/13/18 06:30 WBC RBC Hgb Hct MCV MCH MCHC RDW RDW Differential Plt Count MPV Immature Gran % (Auto) Neut % (Auto) Lymph % (Auto) [place] % (Auto) Eos % (Auto) Baso % (Auto) Absolute Neuts (auto) Absolute Lymphs (auto) Total Counted PT INR APTT Sodium 139 Potassium 3.8 Chloride 107 Carbon Dioxide 25.0 Anion Gap 7 BUN 11 Creatinine 0.96 Estim Creat Clear Calc 114.44 Est GFR (MDRD) Af Amer 110 Est GFR (MDRD) Non-Af 91 BUN/Creatinine Ratio 11.4 Glucose 90 Calcium 8.5 Troponin I TSH Free T4 Free T3 pg/dL 3.4 Discharge Diet: Low fat/ Low Cholesterol, 2000 mg Sodium Diet Discharge Activity: Return to Normal Activity Home Medications: Medications to take at Discharge Apixaban [Eliquis] 5 mg PO BID #60 tablet 12/01/15 Lisinopril [Zestril] 20 mg PO DAILY #30 tablet 12/13/18 Following Prescrptions Were Given to Patient: Lisinopril [Zestril] 20 mg PO DAILY #30 tablet Primary Care Physician: Yoav Almanzar MD [Primary Care Provider] - Please follow up with your Primary Care Physician in: as scheduled Disposition: Home Minutes spent on discharge:: 45 Patient Condition:: Stable Medical Necessity - Tobacco Use Smoking Status: Never smoker Tobacco Use: Non-smoker Meaningful Use Info Meaningful Use Diagnoses (Choose all that apply): None applicable Code Visit Inpatient E&M: 48729 Disch Hosp
== END 2018-12-13 11:42 | disposition home or self-care (01) ==
LOC: ED 01:05 → PCU 01:52
PROVIDERS: Admitting Provider Hospitalist; Emergency Provider Emergency Medicine; Family Provider Family Medicine; PCP Family Medicine; Visit Provider Internal Medicine
DX: R07.89 Other chest pain (principal); Q27.39 Arteriovenous malformation, other site; I10 Essential (primary) hypertension; Z79.01 Long term (current) use of anticoagulants; I69.354 Hemiplegia and hemiparesis following cerebral infarction affecting left non-dominant side
CPT/HCPCS: 36415; 71046; 71275; 78452; 80048; 84439; 84443; 84481; 84484; 85025; 85027; 85610; 85730; 93005; 93017; 96374; 96375; 99218; 99283; A9500; J7030; Q9967; A4216; G0378; J2405

== ENCOUNTER 2018-12-14 21:36 | Observation (INO) | payer BC, SELFPAY ==
[2018-12-13 04:38] VITALS: BMI 27.0
[2018-12-14 21:37] VITALS: BP 115/95; PULSE 71; RESP 16; TEMP 36.7; O2SAT 97; BMI 29.6
--- NOTE | 2018-12-14 21:45 | EKG12_ITS ---
Test Reason : ADMIT CP Blood Pressure : / mmHG Vent. Rate : 060 BPM Atrial Rate : 060 BPM P-R Int : 144 ms QRS Dur : 096 ms QT Int : 418 ms P-R-T Axes : 026 016 015 degrees QTc Int : 418 ms Normal sinus rhythm Normal ECG Confirmed by MANUEL BAPTISTE, MICHAEL ([id number]), photography editor MARVIN CAGE ([id number] on 12/18/2018 10:59:25 AM Referred By: Isaak Sosa Confirmed By:MICHAEL JACKSON MD
[2018-12-14 21:52] VITALS: O2SAT 98
[2018-12-14] MEDS: Aspirin 81 MG TAB.CHEW 324 MG PO (21:54)
--- NOTE | 2018-12-14 21:56 | RAD_ITS ---
STUDY: X-RAY CHEST REASON FOR EXAM: Male, 43 years old. Chest pain TECHNIQUE: Single frontal view of the chest. COMPARISON: 12/13/2018 x-ray [address] CT FINDINGS: The lungs are clear and expanded. There is no demonstrated pleural abnormality. Normal size heart. Stable mediastinal and left hilar masses. Normal visualized pulmonary arteries. Normal visualized aortic arch and descending thoracic aorta. Normal visualized thoracic spine. Normal visualized ribs, clavicles, and shoulders. There is no demonstrated abnormality of the visualized soft tissue structures of the upper abdomen. RAD/Chest 1 View (Portable) IMPRESSION: No acute pulmonary findings. Stable mediastinal and left hilar masses. Electronically Signed: Lalo Suh MD at 23:00 EST Tel , Service support ,
[2018-12-14 22:01] LABS: Absolute Neutrophil Count 4.7 X10^3/uL (2.0-7.7); Basophil# 0.05 X10^3/uL; Basophil% 0.5 % (0-1); Eosinophil# 0.15 X10^3/uL; Eosinophils% 1.6 % (0-5); Hematocrit 45.1 % (40-54); Hemoglobin 15.1 g/dl (13.0-16.5); Lymphocyte % 39.1 % (19-41); Mean Corp Hgb Conc 33.5 g/gl (32-36); Mean Corpuscular Hgb 30.2 pg (27.0-32.0); Mean Corpuscular Volume 90.2 fL (80-94); Mean Platelet Vol. 12.5 fl (6.2-12.0); Monocyte# 0.72 X10^3/uL; Monocyte% 7.8 % (0-10); Neutrophil # 4.67 X10^3/uL (2.7-7.7); Neutrophil % 50.8 % (47-70); Platelet Count 238 K/mm3 (150-450); RBC Distribution Width CV 12.5 % (11.6-14.6); RBC Distribution Width SD 40.9 fl (35.1-43.9); White Blood Count 9.2 K/mm3 (4.4-11.0)
[2018-12-14 22:02] LABS: POSITIVE COUNT NO; POSITIVE DIFFERENTIAL NO; POSITIVE MORPHOLOGY NO
[2018-12-14 22:13] LABS: Anion Gap 6 (5-15); BUN 15 mg/dL (7-18); BUN/Creat Ratio 14.2 RATIO (10-20); Calcium,Total 8.8 mg/dL (8.5-10.1); Chloride 110 mmol/L (98-107); Creatinine, Serum 1.06 mg/dL (0.70-1.30); EST Glomerular Filtration Rate 82 mL/min (>60); Est Glom Filt Rate - Afr Amer 99 mL/min (>60); Estimated Creatinine Clearance 103.64 ml/min; Glucose 100 mg/dL (74-106); Potassium 3.9 mmol/L (3.5-5.1); Sodium Level 142 mmol/L (136-145)
--- NOTE | 2018-12-14 22:25 | ED.VISSUMM ---
- ER Visit Summary Date of Service: 12/14/18 Chief Complaint: [Chest pain] History of Present Illness: The patient is a 43 M who presents with chest pain for a few days he was recently admitted had a normal stress test, he presents again with radiation to his left arm. He has no fever or chills. He has no recent upper respiratory infection. His pain is mild to moderate radiating to his left arm. It is achy. Physical Examination: Not appear in acute distress. Moist mucous membranes, no obvious facial deformity No C-spine tenderness supple neck. Regular rate and rhythm without any obvious murmurs Clear lungs bilaterally speaking in full sentences without any obvious respiratory distress Abdomen soft and nontender no guarding or rebound Moves all extremities without any difficulty or pain. Skin does not show any obvious rashes or lesions, no trauma. Alert oriented ?3 with no gross focal deficit Emergency Department Course and Treatment: Patient again has elevated troponins, they are intermediate at 0.062. After discussing with Dr. Bhat I did admit the patient again for repeat workup, I added a CRP and ESR. He had a normal PE study just yesterday I will not repeat it. Disposition: Admit for cardiac workup Impression: Chest pain [place] intermediate troponin This note was generated with [employer] dictation software. It may contain incorrect words, spelling, and punctuation that were not noted in review of the chart prior to signing ED Disposition - Plan for ED Patient: Referrals: Yoav Almanzar MD [Primary Care Provider] -
--- NOTE | 2018-12-14 22:28 | ED.DCSUM_ITS ---
- ER Visit Summary Date of Service: 12/14/18 Chief Complaint: [Chest pain] History of Present Illness: The patient is a 43 M who presents with chest pain for a few days he was recently admitted had a normal stress test, he presents again with radiation to his left arm. He has no fever or chills. He has no recent upper respiratory infection. His pain is mild to moderate radiating to his left arm. It is achy. Physical Examination: Not appear in acute distress. Moist mucous membranes, no obvious facial deformity No C-spine tenderness supple neck. Regular rate and rhythm without any obvious murmurs Clear lungs bilaterally speaking in full sentences without any obvious respira tory distress Abdomen soft and nontender no guarding or rebound Moves all extremities without any difficulty or pain. Skin does not show any obvious rashes or lesions, no trauma. Alert oriented ?3 with no gross focal deficit Emergency Department Course and Treatment: Patient again has elevated troponins, they are intermediate at 0.062. After discussing with Dr. Bhat I did admit the patient again for repeat workup, I added a CRP and ESR. He had a normal PE study just yesterday I will not repeat it. Disposition: Admit for cardiac workup Impression: Chest pain [place] intermediate troponin This note was generated with [employer] dictation software. It may contain incorrect words, spelling, and punctuation that were not noted in review of the chart prior to signing ED Disposition - Plan for ED Patient: Referrals: Yoav Almanzar MD [Primary Care Provider] -
[2018-12-14 22:33] LABS: Erythrocyte Sedimentation Rate 3 mm/hr (0-15)
--- NOTE | 2018-12-14 22:35 | HP.PCM_ITS ---
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 This new chest pain began about 9 hours prior to presentation at the emergency department. The chest pain is episodic and it is located on the left side of his chest. He rated the severity as between a 6 to a 10. He described the chest pain as at times sharp; and at times dull and throbbing. He reported the chest pain does not radiates to his arm however he has noticed bilateral leg pain. Of note patient has a history of a TIA and occasionally experiences left-sided weakness. Although at the time of examination he did not have left-sided w eakness. Patient has nausea without vomiting. He denies diaphoresis. Emergency department doctor discussed the day the case with social media project manager, Dr. Bhat and cardiology will see patient in the a.m. 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 History of stroke with residual effects (Chronic) Allergies No Known Allergies Allergy (Verified 12/13/18 00:16) Home Medications: Ambulatory Orders Medication Instructions Recorded Apixaban [Eliquis] 5 mg PO BID #60 tablet 12/01/15 Lisinopril [Zestril] 20 mg PO DAILY #30 tablet 12/13/18 Surgical History: no surgical history Psychiatric History: Anxiety Lives: Spouse/ Significant Other Smoking Status: Never smoker Alcohol: None - *Family History Maternal History Items: Cancer - Breast CA in mother, 50s. Maternal grandfather had heart attack when he was in his 60s. Paternal History Items: Heart Disease, - - Parkinson's disease. Review of Systems Constitutional: Denies: Chills, Fever, Weight Change HEENT: Denies: Head Aches, Sinus Congestion, Sinus Drainage Cardiovascular: Reports: Chest Pain. Denies: Palpitations Respiratory: Denies: Cough, Shortness of breath at rest, Sputum production Gastrointestinal: Reports: Nausea. Denies: Abdominal Pain, Vomiting Genitourinary: Denies: Dysuria Musculoskeletal: Reports: Leg Pain. Denies: Joint Pain, Joint Tenderness Skin: Denies: Rash, Wounds Neurological: Denies: Numbness, Tingling, Focal weakness Psychiatric: Reports: Anxiety. Denies: Depression, Homicidal Ideations, Suicidal Ideations Hematologic/ Lymphatic: Denies: Easy Bruising, Easy Bleeding VTE Information - Inpt Only VTE Present on Admission: No VTE Mechan Device Prophylaxis: None VTE Pharm Prophylaxis ordered?: No Reason prophylaxis not ordered:: Treatment Not Indicated - Took Eliquis at home. And received therapeutic dose of Lovenox. - Physical Exam General: Alert, Oriented x3, Cooperative HEENT: Atraumatic, PERRLA, EOMI, Normocephalic Neck: Supple, No JVD, Negative Carotid Bruits Lungs: Clear to auscultation, Normal air movement Cardiovascular: Regular rate, No murmurs Abdomen: Bowel Sounds Present, Soft, Non Tender Extremities: No edema, Capillary Refill Less than 3 Seconds Skin: No rashes, No breakdown Musculoskeletal: No Tenderness to Palpation of Joints or Extremities Neurological: Neuro grossly intact Psych/Mental Status: Normal Affect, Appropriate Vital Signs Temp Pulse Resp BP Pulse Ox 98.1 F 71 16 115/95 H 98 12/14/18 21:37 12/14/18 21:37 12/14/18 21:37 12/14/18 21:37 12/14/18 21:52 Oxygen Flow Rate (L/min) 2 Oxygen Delivery Method Nasal Cannula Weight: 102 kg Body Mass Index (BMI) 29.6 Finger Stick Blood Glucose 88 Laboratory Tests Past 24 Hrs 12/14/18 12/14/18 12/14/18 20:50 20:50 20:50 WBC 9.2 RBC 5.00 Hgb 15.1 Hct 45.1 MCV 90.2 MCH 30.2 MCHC 33.5 RDW 12.5 RDW Differential 40.9 Plt Count 238 MPV 12.5 H Immature Gran % (Auto) 0.200 Neut % (Auto) 50.8 Lymph % (Auto) 39.1 Towns % (Auto) 7.8 Eos % (Auto) 1.6 Baso % (Auto) 0.5 Absolute Neuts (auto) 4.7 Absolute Lymphs (auto) 3.60 Total Counted Not Reportable ESR 3 Sodium 142 Potassium 3.9 Chloride 110 H Carbon Dioxide 26.0 Anion Gap 6 BUN 15 Creatinine 1.06 Estim Creat Clear Calc 103.64 Est GFR (MDRD) Af Amer 99 Est GFR (MDRD) Non-Af 82 BUN/Creatinine Ratio 14.2 Glucose 100 Calcium 8.8 Troponin I 0.062 H C-React Prot High Sens 12/14/18 20:50 WBC RBC Hgb Hct MCV MCH MCHC RDW RDW Differential Plt Count MPV Immature Gran % (Auto) Neut % (Auto) Lymph % (Auto) Towns % (Auto) Eos % (Auto) Baso % (Auto) Absolute Neuts (auto) Absolute Lymphs (auto) Total Counted ESR Sodium Potassium Chloride Carbon Dioxide Anion Gap BUN Creatinine Estim Creat Clear Calc Est GFR (MDRD) Af Amer Est GFR (MDRD) Non-Af BUN/Creatinine Ratio Glucose Calcium Troponin I C-React Prot High Sens Pending Assessment/Plan All Active Problems Chest pain (Acute) TIA (transient ischemic attack) (Resolved) The patient is a 43 year old M with a significant history of a TIA; hypertension; and 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 Chest pain Admit to a monitored bed on PCU CXR independently reviewed confirms no acute cardiopulmonary process but with mediastinal mass which is chronic. Follow-up CTA on 12/13/18 showed mediastinal mass is unchanged. EKG independently reviewed confirms sinus rhythm Old CTA was reviewed and showed medicine of mass. Received aspirin 325 mg at emergency department. ASA 81 mg p.o. daily Morphine as needed for pain We will check lipid panel. Lipitor 80 mg nightly. Noted to have elevated troponin level in the same range as on previous on admission 1 day ago. Serial cardiac enzymes. High intensity C-reactive protein unremarkable. ESR unremarkable. Stat EKG as needed for chest pain We will continue patient on lisinopril that was started on previous admission. Since patient has not taken his second dose of Eliquis for the day, and Eliquis is indeed past due, discussed emergency department doctor to give him one-time dose of Lovenox at therapeutic dose. Patient takes Eliquis for AVM. Would hold Eliquis at this time. Hypertension. On admission his blood pressure was not within goal. Lisinopril continued Trend blood pressure and adjust blood pressure medication. Elevated TSH On his admission on 12/13/18 his TSH was elevated at 5.20. Follow-up free T4 and free T3 were normal. Patient was advised to follow up outpatient. AVM Reportedly patient had a TIA and workup at that time revealed mediastinal AVM. He takes Eliquis for his AVM. Patient received therapeutic dose of Lovenox on admission. Would hold Eliquis for now. DVT prophylaxis: Not indicated in the setting of patient receiving therapeutic dose of Lovenox. Code Visit OBSV E&M: 00699 Initial observation care L3
[2018-12-14 22:38] LABS: CRP, High Sensitivity Cardiac 1.61 mg/L
[2018-12-14 23:05] VITALS: BP 138/80; PULSE 68; RESP 13; O2SAT 97
[2018-12-14] MEDS: Enoxaparin 100 MG/ML Syringe SC (23:18)
--- NOTE | 2018-12-14 23:45 | EKG12_ITS ---
Test Reason : CP ADMIT Blood Pressure : / mmHG Vent. Rate : 067 BPM Atrial Rate : 067 BPM P-R Int : 142 ms QRS Dur : 094 ms QT Int : 410 ms P-R-T Axes : 036 017 019 degrees QTc Int : 433 ms Sinus rhythm with Premature atrial complexes Otherwise normal ECG Confirmed by MANUEL BAPTISTE, MICHAEL ([id number]), assistant film editor MARVIN CAGE ([id number]) on 12/18/2018 10:53:26 AM Referred By: Isaak Sosa Confirmed By:MICHAEL JACKSON MD
[2018-12-14 23:46] VITALS: BMI 27.3
[2018-12-14 23:47] VITALS: BP 141/87; BP 143/97; PULSE 71; RESP 13; TEMP 36.5; O2SAT 95
[2018-12-14 23:56] VITALS: BMI 27.3
[2018-12-15] VITALS (17 sets, daily range): BP systolic 110–132; BP diastolic 60–76; PULSE 56–80; RESP 12–16; TEMP 36.4–36.7; O2SAT 94–98
[2018-12-15] MEDS: Atorvastatin Calcium 80 MG Tablet PO ×2 (00:16→21:14)
[2018-12-15] MEDS: Metoprolol Tartrate 25 MG Tablet 12.5 MG PO ×2 (02:05→21:14)
[2018-12-15] MEDS: Clopidogrel Bisulfate 300 MG Tablet PO (02:07)
[2018-12-15 03:18] LABS: International Normalized Ratio 1.1; Prothrombin Time (Protime)PT. 14.1 SECONDS (11.7-14.9)
[2018-12-15 04:21] LABS: Cholesterol 156 mg/dL (200); High Density Lipoprotein 41 mg/dL; Triglycerides 146 mg/dL; Very Low Density Lipoprotein 29 mg/dL (5-40)
[2018-12-15] MEDS: Morphine 2 MG/ML Syringe IV ×3 (09:51→17:47)
[2018-12-15] MEDS: Aspirin E.C. 81 MG Tablet PO (09:51)
[2018-12-15] MEDS: Lisinopril 20 MG Tablet PO (09:51)
--- NOTE | 2018-12-15 09:52 | EKG12_ITS ---
Test Reason : CP ADMIT Blood Pressure : / mmHG Vent. Rate : 067 BPM Atrial Rate : 067 BPM P-R Int : 140 ms QRS Dur : 092 ms QT Int : 398 ms P-R-T Axes : 041 026 021 degrees QTc Int : 420 ms Normal sinus rhythm Normal ECG Confirmed by MANUEL BAPTISTE, MICHEAL ([id number]), editorial specialist MARVIN CAGE ([id number] on 12/18/2018 10:49:06 AM Referred By: Isaak Sosa Confirmed By:MICHAEL JACKSON MD
[2018-12-15] MEDS: Ondansetron 4 MG/2 ML Vial IV (10:44)
--- NOTE | 2018-12-15 12:54 | ECHOCS_ITS ---
Reason For Study: CHEST PAIN Procedure This was a 2D Doppler, Color Flow transthoracic echocardiogram. The study was technically difficult. Contrast injection was performed. Exam performed portable in patient room. Left Ventricle Normal LV size. Mid cavitary false tendon noted. Left ventricular systolic function is normal. The estimated ejection fraction is 60 %. No evidence for diastolic dysfunction. No regional wall motion abnormalities noted. Right Ventricle Normal right ventricle. Normal systolic function. Atria Normal left atrium. Normal right atrium. No doppler evidence for ASD. Mitral Valve There is no mitral annular calcification. Normal mitral valve. Trivial mitral valve insufficiency. Tricuspid Valve Normal tricuspid valve. Trivial tricuspid valve insufficiency. Unable to estimate RV systolic pressure/pulmonary artery pressure due to technically difficult study. Aortic Valve Trisinus/trileaflet aortic valve. Normal aortic valve. Pulmonic Valve The pulmonic valve is not well visualized. Great Vessels Normal sized aortic root. Pericardium/Pleural No pericardial effusion. Medication Diluted definity 2ml given slow IV push to enhance endocardial definition. MMode/2D Measurements & Calculations LVIDd: 4.9 cm IVSd: 0.96 cm Ao root diam: 3.4 cm LVIDs: 3.3 cm LVPWd: 0.97 cm RVDd: 3.3 cm FS: 31.9 % LAV(MOD-bp): 37.6 ml LVAd ap4: 36.9 cm2 SV(MOD-sp4): 75.0 ml LAV(MOD-bp) Indexed: 17.4 ml/m2 EDV(MOD-sp4): 130.2 ml LAV(MOD-sp2): 35.4 ml EDV(sp4-el): 137.1 ml LAV(MOD-sp4): 34.6 ml LVAs ap4: 21.4 cm2 ESV(MOD-sp4): 55.1 ml ESV(sp4-el): 57.8 ml EF(MOD-sp4): 57.6 % EF(sp4-el): 57.8 % SV(sp4-el): 79.2 ml LA A4 area: 14.8 cm2 RA A4 area: 13.4 cm2 Doppler Measurements & Calculations MV E max ron: 63.5 cm/sec Lat Peak E' Ron: 11.8 cm/sec Med Peak E' Ron: 9.9 cm/sec MV A max ron: 44.8 cm/sec E/E' lat: 5.4 E/E' med: 6.4 MV E/A: 1.4 Interpretation Summary The study was technically difficult. Contrast injection was performed. Left ventricular systolic function is normal. The estimated ejection fraction is 60 %. Mid cavitary false tendon noted. Trivial mitral valve insufficiency. Trivial tricuspid valve insufficiency. Unable to estimate RV systolic pressure/pulmonary artery pressure due to technically difficult study. No evidence for diastolic dysfunction. Ordering Physician: Dusty Bhat Referring Physician: MENDEZ JOSE Performed By: Denise Mcgrath, RDCS, RVT
[2018-12-15] MEDS: Clopidogrel Bisulfate 75 MG Tablet PO (13:51)
[2018-12-15] MEDS: 0.9% NaCl Peripheral Flush Adult/Peds IV ×2 (13:56→17:48)
--- NOTE | 2018-12-15 14:21 | PCM.PROGNOTE ---
Subjective: Pt currently sitting upright in bed NAD. He has no chest pain since receiving morphine. It comes and goes seconds to minutes. At times very mild left sided pain other times severe like he is being stabbed. Had some mild nausea, resolved with zofran - Physical Exam General: Alert, Oriented x3, Cooperative HEENT: Atraumatic, PERRLA, EOMI, Normocephalic Neck: Supple, No JVD, Negative Carotid Bruits Lungs: Clear to auscultation, Normal air movement Cardiovascular: Regular rate, No murmurs Abdomen: Bowel Sounds Present, Soft, Non Tender Extremities: No edema, Capillary Refill Less than 3 Seconds Skin: No rashes, No breakdown Musculoskeletal: No Tenderness to Palpation of Joints or Extremities Neurological: Cranial nerves II-XII grossly intact Psych/Mental Status: Normal Affect, Appropriate, Alert and oriented to time, place, person, mood and affect Vital Signs Temp Pulse Resp BP Pulse Ox 97.8 F 80 16 132/72 H 98 12/15/18 09:41 12/15/18 11:00 12/15/18 09:41 12/15/18 09:41 12/15/18 09:41 Oxygen Flow Rate (L/min) 2 Oxygen Delivery Method Room Air Weight: 207 lb 1.6 oz Body Mass Index (BMI) 27.3 Finger Stick Blood Glucose 88 Intake and Output for Last 24 Hours 12/13/18 12/14/18 12/15/18 23:59 23:59 23:59 Intake Total 0 / 0 557 / 557 Balance 0 / 0 557 / 557 Laboratory Tests Past 24 Hrs 12/14/18 12/14/18 12/14/18 00:10 20:50 20:50 WBC 9.2 RBC 5.00 Hgb 15.1 Hct 45.1 MCV 90.2 MCH 30.2 MCHC 33.5 RDW 12.5 RDW Differential 40.9 Plt Count 238 MPV 12.5 H Immature Gran % (Auto) 0.200 Neut % (Auto) 50.8 Lymph % (Auto) 39.1 [place] % (Auto) 7.8 Eos % (Auto) 1.6 Baso % (Auto) 0.5 Absolute Neuts (auto) 4.7 Absolute Lymphs (auto) 3.60 Total Counted Not Reportable ESR PT INR Sodium 142 Potassium 3.9 Chloride 110 H Carbon Dioxide 26.0 Anion Gap 6 BUN 15 Creatinine 1.06 Estim Creat Clear Calc 103.64 Est GFR (MDRD) Af Amer 99 Est GFR (MDRD) Non-Af 82 BUN/Creatinine Ratio 14.2 Glucose 100 Calcium 8.8 Troponin I 0.061 H 0.062 H C-React Prot High Sens Triglycerides Cholesterol LDL Cholesterol VLDL Cholesterol HDL Cholesterol 12/14/18 12/14/18 12/15/18 20:50 20:50 03:01 WBC RBC Hgb Hct MCV MCH MCHC RDW RDW Differential Plt Count MPV Immature Gran % (Auto) Neut % (Auto) Lymph % (Auto) [place] % (Auto) Eos % (Auto) Baso % (Auto) Absolute Neuts (auto) Absolute Lymphs (auto) Total Counted ESR 3 PT 14.1 INR 1.1 Sodium Potassium Chloride Carbon Dioxide Anion Gap BUN Creatinine Estim Creat Clear Calc Est GFR (MDRD) Af Amer Est GFR (MDRD) Non-Af BUN/Creatinine Ratio Glucose Calcium Troponin I C-React Prot High Sens 1.61 Triglycerides Cholesterol LDL Cholesterol VLDL Cholesterol HDL Cholesterol 12/15/18 12/15/18 03:01 03:01 WBC RBC Hgb Hct MCV MCH MCHC RDW RDW Differential Plt Count MPV Immature Gran % (Auto) Neut % (Auto) Lymph % (Auto) [place] % (Auto) Eos % (Auto) Baso % (Auto) Absolute Neuts (auto) Absolute Lymphs (auto) Total Counted ESR PT INR Sodium Potassium Chloride Carbon Dioxide Anion Gap BUN Creatinine Estim Creat Clear Calc Est GFR (MDRD) Af Amer Est GFR (MDRD) Non-Af BUN/Creatinine Ratio Glucose Calcium Troponin I 0.044 C-React Prot High Sens Triglycerides 146 Cholesterol 156 LDL Cholesterol 86 VLDL Cholesterol 29 HDL Cholesterol 41 Medical Necessity - Tobacco Use Smoking Status: Never smoker Assessment/Plan All Active Problems Chest pain (Acute) TIA (transient ischemic attack) (Resolved) 1. Chest pain - recently with stress test that he performed well at. Cardiology is deciding on the next course of action. Asa/statin/plavix, prn nitro. On lisinopril. Troponin indeterminate. Tele NSR. EKG NSR + PAC. 2. Hx CVA and thoracic AVMs, recurrent TIAs - on eliquis (held) 3. Hx migraines 4. HTN - stable DVT ppx: eliquis held. This patient was seen by Eric Pina PA-C under the supervision of Doctor Booker.
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
[2018-12-16] VITALS (14 sets, daily range): BP systolic 104–150; BP diastolic 60–87; PULSE 62–86; RESP 15–16; TEMP 36.6–36.7; O2SAT 95–98
--- NOTE | 2018-12-16 05:55 | MRI_ITS ---
STUDY: MRI BRAIN WITHOUT CONTRAST REASON FOR EXAM: Male, 43 years old. Numbness and tingling with concussion 2 weeks ago TECHNIQUE: Standardized multiplanar fat and water weighted pulse sequences were obtained. COMPARISON: 01/20/2015 FINDINGS: Normal size of the ventricles and extra-axial spaces for the patient's age. Normal white matter tracts of the supratentorial brain. Remote infarct in the right basal ganglia. Remote infarct in the left thalamus. There is no extra-axial fluid accumulation. Normal flow voids within the major intracranial circulation suggesting patency by spin echo criteria. Normal sella turcica, pituitary gland, infundibular stalk, optic chiasm and hypothalamus. Normal tectal plate and pineal gland. Normal midbrain, alicia and medulla. Multiple remote cerebellar infarcts. Normal basal cisterns. Normal bilateral temporal bones. Normal bilateral internal auditory canals. No demonstrated orbital abnormality, within the constraints of a routine brain study. Normal visualized paranasal sinuses. Normal calvarium and skull base. Normal visualized soft tissue structures. Normal visualized upper cervical spine. MRI/Brain without Contrast IMPRESSION: Multiple remote infarcts as described. No evidence of acute infarct or hemorrhage. Electronically Signed: Lalo Suh MD at 10:04 EST Tel , Service support ,
--- NOTE | 2018-12-16 05:55 | MRI_ITS ---
STUDY: MRA OF THE HEAD WITHOUT CONTRAST REASON FOR EXAM: Male, 43 years old. Numbness and tingling with concussion 2 weeks ago TECHNIQUE: 3-D [id number] (TOF) imaging was performed with MIPs. The study was performed unenhanced. COMPARISON: None. FINDINGS: Normal bilateral petrous carotid arteries. Normal right cavernous carotid artery with a normal supraclinoid bifurcation. Normal left cavernous carotid artery with a normal supraclinoid bifurcation. Normal right A1 segments of the anterior cerebral artery. Normal left A1 segments of the anterior cerebral artery. Normal intact anterior communicating artery (ACOM). Normal bilateral A2 segments of the anterior cerebral arteries. Normal right M1 and M2 segments of the middle cerebral arteries, with a normal M1 bifurcation. Normal left M1 and M2 segments of the middle cerebral arteries, with a normal M1 bifurcation. Normal right posterior communicating artery (PCOM). Normal left posterior communicating artery (PCOM). Normal bilateral vertebral arteries. Normal basilar artery with a normal basilar bifurcation. The visualized bilateral superior cerebellar (SCA) arteries are normal. Normal bilateral P1, P2 and visualized P3 segments of the posterior cerebral arteries. There is no demonstrated aneurysm of the [place]. There is no major vessel occlusion or hemodynamically significant stenosis. Multiple remote infarcts. MRI/MRA Head ONLY without Contrast IMPRESSION: Normal MRA of the head Electronically Signed: Lalo Suh MD at 10:08 EST Tel , Service support ,
--- NOTE | 2018-12-16 05:55 | MRI_ITS ---
STUDY: MRA NECK WITH AND WITHOUT CONTRAST REASON FOR EXAM: Male, 43 years old. Numbness and tingling TECHNIQUE: 3-D [id number] (TOF) imaging was performed in an 1.5 T MRI scanner. Gadavist 10 IV was administered for the contrast enhanced images. COMPARISON: 01/20/2015 FINDINGS: RIGHT CAROTID ARTERIES: Normal right common carotid artery (CCA). Normal right common carotid bulb. Normal origin of the right internal carotid (ICA) artery without a hemodynamically significant stenosis. Normal visualized cervical portion of the right internal carotid artery. Normal origin of the right external carotid artery (ECA). LEFT CAROTID ARTERIES: Normal left common carotid artery (CCA). Normal left common carotid bulb. Normal origin of the left internal carotid (ICA) artery without a hemodynamically significant stenosis. Normal visualized cervical portion of the left internal carotid artery. Normal origin of the left external carotid artery (ECA). VERTEBRAL ARTERIES: Normal antegrade flow within the bilateral vertebral artery without a hemodynamically significant stenosis. MRI/MRA Neck WITH and W/O Contrast IMPRESSION: Normal bilateral cervical carotid and vertebral arteries. Electronically Signed: Lalo Suh MD at 10:12 EST Tel , Service support ,
--- NOTE | 2018-12-16 08:21 | PN.CARD_ITS ---
Subjectve: The patient states that he is feeling better overall. He denies ongoing chest discomfort at this time. He also notes his left facial paresthesia feeling has not recurred since yesterday. Time he states it was fleeting. Objective: Vital Signs Temp Pulse Resp BP Pulse Ox 97.9 F 63 15 104/60 97 12/16/18 03:06 12/16/18 07:00 12/16/18 03:06 12/16/18 03:06 12/16/18 03:06 Oxygen Flow Rate (L/min) 2 Oxygen Delivery Method Nasal Cannula Weight: 207 lb 1.6 oz Body Mass Index (BMI) 27.3 Finger Stick Blood Glucose 88 Intake and Output for Last 24 Hours 12/14/18 12/15/18 12/16/18 23:59 23:59 23:59 Intake Total 0 / 0 1554 / 1554 0 / 0 Balance 0 / 0 1554 / 1554 0 / 0 General: Awake, Alert, Oriented x 3, Cooperative, No Acute Distress HEENT: Atraumatic, Normocephalic, PERRL, EOMI, Sclera Non Icteric Oral: Moist Mucosa Neck: Supple, Good ROM, No JVD Lungs: Clear to auscultation Cardiovascular: Regular Rhythm, Normal S1, Normal S2 Vascular: No Carotid Bruits Abdomen: Bowel Sounds Present, Soft, Non Tender Extremities: No Cyanosis, No Clubbing, No edema Psych/Mental Status: Appropriate Rhythm: Sinus rhythm Medical Necessity - Tobacco Use Smoking Status: Never smoker Assessment/Plan 1. Atypical chest discomfort The patient does have atypical chest discomfort. The etiology is unclear at this time. Based upon his recent noninvasive cardiovascular evaluation/exercise tolerance test/imaging study, there was no evidence of inducible symptoms, the inducible e lectrocardiographic changes, or inducible myocardial perfusion changes. Also, based upon review of his chest CT scan, again despite being noncardiac CTA, his left main coronary artery, proximal LAD, proximal LCx, and proximal RCA were visualized and appear to be patent and angiographically within normal limits. He has been referred for further evaluation with consideration for diagnostic cardiac catheterization to further assess his symptoms and for the possibility of a false negative stress test noting his chest CT scan did not demonstrate any obvious thromboembolic disease as he has had no other definitive etiology to explain her symptoms or his indeterminate troponin I levels. However, prior to proceeding with such and invasive evaluation/study, based upon his concern of an underlying peripheral vascular malformation with details unknown, it may be reasonable to attempt to obtain his previous angiography which reports to assist with his evaluation care. It may be also reasonable to obtain a followup transthoracic echocardiogram to look for any obvious new left ventricular regional wall motion abnormalities that may give evidence for the need for additional invasive evaluation her care. Also, based upon his indeterminate troponin I levels, which have occurred since his head trauma/concussion, it may be reasonable to obtain a neurologic consultation as to whether or not that is contributing to his indeterminate troponin levels prior to proceeding with a further invasive evaluation. If there are other etiologies for his discomfort and objective findings perhaps he may not necessarily need invasive cardiovascular evaluation. He could be considered for a future cardiac CTA to evaluate his coronary anatomy from a noninvasive standpoint. In the meantime he will continue to be monitored. He will continue medical management as deemed appropriate for the possibility of underlying CAD. In anticipation that he may need future invasive evaluation his anticoagulant therapy has been temporarily placed on hold. He would need to be off his anticoagulants for a period of time prior to additional invasive evaluation. 2. Indeterminate troponin I levels Again the etiology of indeterminate iron levels are unknown. It is not clear that this is related to an underlying cardiovascular event. He has had multiple TIA/CVA events in the past. He is recently had head trauma as well resulting in his report of a concussion. Thus there is concern as to whether that his troponin levels may be related to a neurologic event versus a cardiac event. If that were the case then perhaps he does not require additional invasive cardiovascular evaluation. His case was discussed with Dr. Hopper and Dr. Purcell of neurology. Dr. Purcell will be evaluating the patient. 3. TIA/CVA He has had previous TIAs or CVAs for which he has been evaluated as noted above. He continues to have intermittent and transient left-sided facial paresthesias. This again there is concern as to whether or not his neurologic process that is contributing to his troponin I levels. He will be further evaluated by neurology. 4. Vascular malformation He does have some form of a vascular malformation. It has been identified in the past multiple institutions. It is unclear whether it contributes to any of his symptoms or findings. It is also unclear as to whether or not it requires additional evaluation her care at this time. In the interim he states he had been treated medically for his aforementioned events and findings with anticoagulant therapy. Again an attempt will be made to retrieve [facility] records from his previous evaluation there which he believes was in 2007 further details, from an angiographic standpoint, his vascular system. This note was generated using a voice recognition system and there may be incorrect words, spelling or punctuation that were not noted when reviewing the office note prior to saving.
--- NOTE | 2018-12-16 13:15 | PCM.CONS.GEN ---
Problem List (1) Troponin level elevated Status: Acute Reason for Consult Date of Consultation: 12/16/18 Reason for Consultation: raised troponin History of Present Illness: The patient is a 43 year old M with PMH HTN, Stroke, mediastinal AVM, H/O migraine admitted with chest pain. Neurology consulted for elevated troponins by Cardiology. Dr. Bhat. Per discussion with Dr. Bhat he wants to make sure that the elevated troponin is not secondary to cerebral etiology. 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 Per patient he has been told at [facility] that his mediastinal AVM is not amenable to surgery or embolization. He had some concussion few weeks ago but denies any LOC, at present denies any SHERMAN, focal motor weakness, dizziness, sensory loss, visual disturbances or speech disturbances. MRI brain done during this admission reported to not show anything acute, but showed old Right BG infarct and left thalamic infarct, MRA head/neck reported to be normal. 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 History of stroke with residual effects (Chronic) Allergies dust Allergy (Uncoded 12/14/18 23:51) Shortness of breath Home Medications: Ambulatory Orders Medication Instructions Recorded Apixaban [Eliquis] 5 mg PO BID #60 tablet 12/01/15 Lisinopril [Zestril] 20 mg PO DAILY #30 tablet 12/13/18 Surgical History: no surgical history Psychiatric History: Anxiety Lives: Spouse/ Significant Other Smoking Status: Never smoker Alcohol: None Drugs: None - *Family History Maternal History Items: Cancer - Breast CA in mother, 50s. Maternal grandfather had heart attack when he was in his 60s. Paternal History Items: Heart Disease, - - Parkinson's disease. Review of Systems Constitutional: Reports: - - complete ROS negative except as documented in HPI Patient Problems: Active and Suspected Problems Abnormal cardiac enzyme level (Acute) Troponin level elevated (Acute) - Physical Exam General: Alert HEENT: Normocephalic Neck: Supple Lungs: Normal air movement Cardiovascular: Normal S1, Normal S2 Abdomen: Bowel Sounds Present Extremities: No cyanosis Neurological: Cranial nerves II-XII grossly intact, Deep Tendon Reflexes 2+/4 and Symmetrical, Neuro grossly intact, Motor Exam 5/5 strength throughout, Muscle tone normal, Sensory exam intact to light touch and pain, Coordination normal Psych/Mental Status: Normal Affect Vital Signs Temp Pulse Resp BP Pulse Ox 97.9 F 85 16 150/86 H 98 12/16/18 09:57 12/16/18 09:57 12/16/18 09:57 12/16/18 09:57 12/16/18 09:57 Oxygen Flow Rate (L/min) 2 Oxygen Delivery Method Room Air Weight: 93.939 kg Body Mass Index (BMI) 27.3 Finger Stick Blood Glucose 88 Intake and Output for Last 24 Hours 12/14/18 12/15/18 12/16/18 23:59 23:59 23:59 Intake Total 0 / 0 1554 / 1554 0 / 0 Balance 0 / 0 1554 / 1554 0 / 0 Assessment/Plan All Active Problems Chest pain (Acute) Abnormal cardiac enzyme level (Acute) Troponin level elevated (Acute) TIA (transient ischemic attack) (Resolved) The patient is a 43 year old M with PMH HTN, Stroke, mediastinal AVM, H/O migraine admitted with chest pain. Neurology consulted for elevated troponins by Cardiology. Dr. Bhat. Per discussion with Dr. Bhat he wants to make sure that the elevated troponin is not secondary to cerebral etiology. 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 Per patient he has been told at [facility] that his mediastinal AVM is not amenable to surgery or embolization. He had some concussion few weeks ago but denies any LOC, at present denies any SHERMAN, focal motor weakness, dizziness, sensory loss, visual disturbances or speech disturbances. MRI brain done during this admission reported to not show anything acute, but showed old Right BG infarct and left thalamic infarct, MRA head/neck reported to be normal. Impression H/O Stroke possible secondary to mediastinal AVM Plan -Patient on Eliquis 5mg PO BID for many years, was started at [facility] for stroke prevention. Bleeding risks discussed -Troponin elevation unlikely to be secondary to cerebral etiology at present -Further cardiac work up for elevated troponin per Cardiology and hospitalist team -Fall precaution -Follow up with Neurology as outpatient in 6 weeks -Please call with questions if any -Thank you for allowing us to participate in patient's care and management. Code Visit Inpatient E&M: [id number] Init Hosp L3
--- NOTE | 2018-12-16 13:25 | CON.PCM_ITS ---
Problem List (1) Troponin level elevated Status: Acute Reason for Consult Date of Consultation: 12/16/18 Reason for Consultation: raised troponin History of Present Illness: The patient is a 43 year old M with PMH HTN, Stroke, mediastinal AVM, H/O migraine admitted with chest pain. Neurology consulted for elevated troponins by Cardiology. Dr. Bhat. Per discussion with Dr. Bhat he wants to make sure that the elevated troponin is not secondary to cerebral etiology. 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 Per patient he has been told at [facility] that his mediastinal AVM is not amenable to surgery or embolization. He had some concussion few weeks ago but denies any LOC, at present denies any SHERMAN, focal motor weakness, dizziness, sensory loss, visual disturbances or speech disturbances. MRI brain done during this admission reported to not show anything acute, but showed old Right BG infarct and left thalamic infarct, MRA head/neck reported to be normal. 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 History of stroke with residual effects (Chronic) Allergies dust Allergy (Uncoded 12/14/18 23:51) Shortness of breath Home Medications: Ambulatory Orders Medication Instructions Recorded Apixaban [Eliquis] 5 mg PO BID #60 tablet 12/01/15 Lisinopril [Zestril] 20 mg PO DAILY #30 tablet 12/13/18 Surgical History: no surgical history Psychiatric History: Anxiety Lives: Spouse/ Significant Other Smoking Status: Never smoker Alcohol: None Drugs: None - *Family History Maternal History Items: Cancer - Breast CA in mother, 50s. Maternal grandfather had heart attack when he was in his 60s. Paternal History Items: Heart Disease, - - Parkinson's disease. Review of Systems Constitutional: Reports: - - complete ROS negative except as documented in HPI Patient Problems: Active and Suspected Problems Abnormal cardiac enzyme level (Acute) Troponin level elevated (Acute) - Physical Exam General: Alert HEENT: Normocephalic Neck: Supple Lungs: Normal air movement Cardiovascular: Normal S1, Normal S2 Abdomen: Bowel Sounds Present Extremities: No cyanosis Neurological: Cranial nerves II-XII grossly intact, Deep Tendon Reflexes 2+/4 and Symmetrical, Neuro grossly intact, Motor Exam 5/5 strength throughout, Muscle tone normal, Sensory exam intact to light touch and pain, Coordination normal Psych/Mental Status: Normal Affect Vital Signs Temp Pulse Resp BP Pulse Ox 97.9 F 85 16 150/86 H 98 12/16/18 09:57 12/16/18 09:57 12/16/18 09:57 12/16/18 09:57 12/16/18 09:57 Oxygen Flow Rate (L/min) 2 Oxygen Delivery Method Room Air Weight: 93.939 kg Body Mass Index (BMI) 27.3 Finger Stick Blood Glucose 88 Intake and Output for Last 24 Hours 12/14/18 12/15/18 12/16/18 23:59 23:59 23:59 Intake Total 0 / 0 1554 / 1554 0 / 0 Balance 0 / 0 1554 / 1554 0 / 0 Assessment/Plan All Active Problems Chest pain (Acute) Abnormal cardiac enzyme level (Acute) Troponin level elevated (Acute) TIA (transient ischemic attack) (Resolved) The patient is a 43 year old M with PMH HTN, Stroke, mediastinal AVM, H/O migraine admitted with chest pain. Neurology consulted for elevated troponins by Cardiology. Dr. Bhat. Per discussion with Dr. Bhat he wants to make sure that the elevated troponin is not secondary to cerebral etiology. 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 Per patient he has been told at [facility] that his mediastinal AVM is not amenable to surgery or embolization. He had some concussion few weeks ago but denies any LOC, at present denies any SHERMAN, focal motor weakness, dizziness, sensory loss, visual disturbances or speech disturban anastacio. MRI brain done during this admission reported to not show anything acute, but showed old Right BG infarct and left thalamic infarct, MRA head/neck reported to be normal. Impression H/O Stroke possible secondary to mediastinal AVM Plan -Patient on Eliquis 5mg PO BID for many years, was started at [facility] for stroke prevention. Bleeding risks discussed -Troponin elevation unlikely to be secondary to cerebral etiology at present -Further cardiac work up for elevated troponin per Cardiology and hospitalist team -Fall precaution -Follow up with Neurology as outpatient in 6 weeks -Please call with questions if any -Thank you for allowing us to participate in patient's care and management. Code Visit Inpatient E&M: [id number] Init Hosp L3
[2018-12-16] MEDS: Aspirin E.C. 81 MG Tablet PO (13:44)
[2018-12-16] MEDS: Clopidogrel Bisulfate 75 MG Tablet PO (13:45)
[2018-12-16] MEDS: Lisinopril 20 MG Tablet PO (13:45)
[2018-12-16] MEDS: Metoprolol Tartrate 25 MG Tablet 12.5 MG PO ×2 (13:48→21:33)
--- NOTE | 2018-12-16 14:19 | PCM.PROGNOTE ---
<Eric Pina - Last Filed: 12/16/18 14:19> Patient Problems: Active and Suspected Problems Abnormal cardiac enzyme level (Acute) Troponin level elevated (Acute) Subjective: Chest pain returned today - same area - left sided, no radiation. Mild. No LH/Dizziness. No SOB. No focal weakness. - Physical Exam General: Alert, Oriented x3, Cooperative HEENT: Atraumatic, PERRLA, EOMI, Normocephalic Neck: Supple, No JVD, Negative Carotid Bruits Lungs: Clear to auscultation, Normal air movement Cardiovascular: Regular rate, No murmurs Abdomen: Bowel Sounds Present, Soft, Non Tender Extremities: No edema, Capillary Refill Less than 3 Seconds Skin: No rashes, No breakdown Musculoskeletal: No Tenderness to Palpation of Joints or Extremities Neurological: Cranial nerves II-XII grossly intact Psych/Mental Status: Normal Affect, Appropriate, Alert and oriented to time, place, person, mood and affect Vital Signs Temp Pulse Resp BP Pulse Ox 97.9 F 81 16 150/86 H 98 12/16/18 09:57 12/16/18 13:48 12/16/18 09:57 12/16/18 09:57 12/16/18 09:57 Oxygen Flow Rate (L/min) 2 Oxygen Delivery Method Room Air Weight: 207 lb 1.6 oz Body Mass Index (BMI) 27.3 Finger Stick Blood Glucose 88 Intake and Output for Last 24 Hours 12/14/18 12/15/18 12/16/18 23:59 23:59 23:59 Intake Total 0 / 0 1554 / 1554 0 / 0 Balance 0 / 0 1554 / 1554 0 / 0 Medical Necessity - Tobacco Use Smoking Status: Never smoker Assessment/Plan All Active Problems Chest pain (Acute) Abnormal cardiac enzyme level (Acute) Troponin level elevated (Acute) TIA (transient ischemic attack) (Resolved) 1. Chest pain - recently with treadmill stress test that he performed well at. Cardiology is deciding on the next course of action - as it will be complicated by mediastinal AVMs. Asa/statin/plavix, prn nitro. On lisinopril. Troponin indeterminate. Tele NSR. EKG NSR + PAC. Echo EF 60%, normal LV RV systolic function, no wall abnormalities. 2. Hx CVA and thoracic AVMs, recurrent TIAs - on eliquis (held). Seen by Rosa. MRIs obtained. No acute stroke. F/u 6 weeks. 3. Hx migraines 4. HTN - stable DVT ppx: elidiann marte. This patient was seen by Eric Pina PA-C under the supervision of Doctor Freddie. <Tai Frazier - Last Filed: 12/16/18 17:17> Subjective: Patient still complained of left-sided chest pain with no radiation. Serial troponin enzymes are mildly elevated 0.061, 0.062 and 0.044. - Physical Exam General: Alert, Oriented x3, Cooperative HEENT: Atraumatic, PERRLA, EOMI, Normocephalic Neck: Supple, No JVD, Negative Carotid Bruits Lungs: Clear to auscultation, Normal air movement Cardiovascular: Regular rate, Regular Rhythm, Normal S1, Normal S2, No murmurs Abdomen: Bowel Sounds Present, Soft, Non Tender, Non-Distended Extremities: No edema, Capillary Refill Less than 3 Seconds Skin: No rashes, No breakdown Musculoskeletal: No Tenderness to Palpation of Joints or Extremities, Arthritic Changes Neurological: Cranial nerves II-XII grossly intact Psych/Mental Status: Normal Affect, Appropriate Vital Signs Temp Pulse Resp BP Pulse Ox 97.8 F 77 16 131/84 H 96 12/16/18 16:44 12/16/18 16:44 12/16/18 16:44 12/16/18 16:44 12/16/18 16:44 Oxygen Flow Rate (L/min) 2 Oxygen Delivery Method Room Air Weight: 207 lb 1.6 oz Body Mass Index (BMI) 27.3 Finger Stick Blood Glucose 88 Intake and Output for Last 24 Hours 12/14/18 12/15/18 12/16/18 23:59 23:59 23:59 Intake Total 0 / 0 1554 / 1554 0 / 0 Balance 0 / 0 1554 / 1554 0 / 0 Assessment/Plan This patient was seen in conjunction with Eric CAMEJO. I have independently interviewed and examined the patient and reviewed pertinent history, examination findings, laboratory and plan of management. I have reviewed the note and agree with the documented findings with the few additional points. In brief, patient is admitted for atypical chest pain. Patient had cardiac cath in [facility] about 3 years ago and was positive for thoracic AVM. Patient also has history of TIA and occasionally experience left-sided weakness as per H&P. Warehouse Associate Driver has been consulted and further orders as per dry kiln worker recommendation I have discussed my assessment with Eric CAMEJO and orders have been reviewed. Code Visit Inpatient E&M: [id number] Subs Hosp L2
--- NOTE | 2018-12-16 14:22 | PN_ITS ---
<Eric Pina - Last Filed: 12/16/18 14:19> Patient Problems: Active and Suspected Problems Abnormal cardiac enzyme level (Acute) Troponin level elevated (Acute) Subjective: Chest pain returned today - same area - left sided, no radiation. Mild. No LH/Dizziness. No SOB. No focal weakness. - Physical Exam General: Alert, Oriented x3, Cooperative HEENT: Atraumatic, PERRLA, EOMI, Normocephalic Neck: Supple, No JVD, Negative Carotid Bruits Lungs: Clear to auscultation, Normal air movement Cardiovascular: Regular rate, No murmurs Abdomen: Bowel Sounds Present, Soft, Non Tender Extremities: No edema, Capillary Refill Less than 3 Seconds Skin: No rashes, No breakdown Musculoskeletal: No Tenderness to Palpation of Joints or Extremities Neurological: Cranial nerves II-XII grossly intact Psych/Mental Status: Normal Affect, Appropriate, Alert and oriented to time, place, person, mood and affect Vital Signs Temp Pulse Resp BP Pulse Ox 97.9 F 81 16 150/86 H 98 12/16/18 09:57 12/16/18 13:48 12/16/18 09:57 12/16/18 09:57 12/16/18 09:57 Oxygen Flow Rate (L/min) 2 Oxygen Delivery Method Room Air Weight: 207 lb 1.6 oz Body Mass Index (BMI) 27.3 Finger Stick Blood Glucose 88 Intake and Output for Last 24 Hours 12/14/18 12/15/18 12/16/18 23:59 23:59 23:59 Intake Total 0 / 0 1554 / 1554 0 / 0 Balance 0 / 0 1554 / 1554 0 / 0 Medical Necessity - Tobacco Use Smoking Status: Never smoker Assessment/Plan All Active Problems Chest pain (Acute) Abnormal cardiac enzyme level (Acute) Troponin level elevated (Acute) TIA (transient ischemic attack) (Resolved) 1. Chest pain - recently with treadmill stress test that he performed well at. Cardiology is deciding on the next course of action - as it will be complicated by mediastinal AVMs. Asa/statin/plavix, prn nitro. On lisinopril. Troponin indeterminate. Tele NSR. EKG NSR + PAC. Echo EF 60%, normal LV RV systolic function, no wall abnormalities. 2. Hx CVA and thoracic AVMs, recurrent TIAs - on eliquis (held). Seen by Rosa. MRIs obtained. No acute stroke. F/u 6 weeks. 3. Hx migraines 4. HTN - stable DVT ppx: elidiann marte. This patient was seen by Eric Pina PA-C under the supervision of Doctor Freddie. <Tai Frazier - Last Filed: 12/16/18 17:17> Subjective: Patient still complained of left-sided chest pain with no radiation. Serial troponin enzymes are mildly elevated 0.061, 0.062 and 0.044. - Physical Exam General: Alert, Oriented x3, Cooperative HEENT: Atraumatic, PERRLA, EOMI, Normocephalic Neck: Supple, No JVD, Negative Carotid Bruits Lungs: Clear to auscultation, Normal air movement Cardiovascular: Regular rate, Regular Rhythm, Normal S1, Normal S2, No murmurs Abdomen: Bowel Sounds Present, Soft, Non Tender, Non-Distended Extremities: No edema, Capillary Refill Less than 3 Seconds Skin: No rashes, No breakdown Musculoskeletal: No Tenderness to Palpation of Joints or Extremities, Arthritic Changes Neurological: Cranial nerves II-XII grossly intact Psych/Mental Status: Normal Affect, Appropriate Vital Signs Temp Pulse Resp BP Pulse Ox 97.8 F 77 16 131/84 H 96 12/16/18 16:44 12/16/18 16:44 12/16/18 16:44 12/16/18 16:44 12/16/18 16:44 Oxygen Flow Rate (L/min) 2 Oxygen Delivery Method Room Air Weight: 207 lb 1.6 oz Body Mass Index (BMI) 27.3 Finger Stick Blood Glucose 88 Intake and Output for Last 24 Hours 12/14/18 12/15/18 12/16/18 23:59 23:59 23:59 Intake Total 0 / 0 1554 / 1554 0 / 0 Balance 0 / 0 1554 / 1554 0 / 0 Assessment/Plan This patient was seen in conjunction with Eric CAMEJO. I have independently interviewed and examined the patient and reviewed pertinent history, examination findings, laboratory and plan of management. I have reviewed the note and agree with the documented findings with the few additional points. In brief, patient is admitted for atypical chest pain. Patient had cardiac cath in [facility] about 3 years ago and was positive for thoracic AVM. Patient also has history of TIA and occasionally experience left-sided weakness as per H&P. Rn [facility] Hospice has been consulted and further orders as per cabin service agent recommendation I have discussed my assessment with Eric CAMEJO and orders have been reviewed. Code Visit Inpatient E&M: 63506 Subs Hosp L2
--- NOTE | 2018-12-16 17:03 | CHAPLAIN ---
Type of Pastoral Visit _x__ Initial Visit ___ Follow-up Visit ___ On-call Visit ___ General Patient Visit ___ Spiritual Assessment ___ Family Conference ___ Bereavement ___ Rapid Response ___ Code Blue ___ Other (describe below) Pastoral Care Referral From _x__ Patient ___ Family ___ Nurse ___ Physician ___ Radiation Control Technician ___ Desk Director ___ Other (describe below) Sacrament/Intervention _x__ Active listening ___ Anointing ___ Cheondoism ___ Bereavement ___ Communion ___ Amara exploration ___ _x__ Life review _x__ Prayer ___ Reconciliation ___ Sacrament of Sick _x__ Supportive presence ___ Wedding ___ Other (describe below) Pastoral Comments
--- NOTE | 2018-12-16 18:06 | EKG12_ITS ---
Test Reason : AM EKG Blood Pressure : / mmHG Vent. Rate : 072 BPM Atrial Rate : 072 BPM P-R Int : 152 ms QRS Dur : 090 ms QT Int : 390 ms P-R-T Axes : 032 014 016 degrees QTc Int : 427 ms Normal sinus rhythm Normal ECG When compared with ECG of 16-DEC-2018 18:36, MANUAL COMPARISON REQUIRED, DATA IS UNCONFIRMED Confirmed by MAYRA BAPTISTE, OBEY ([id number]), assignment editor MARVIN CAGE ([id number]) on 12/19/2018 4:02:27 PM Referred By: Isaak Sosa Confirmed By:OBEY NUNEZ MD
[2018-12-16] MEDS: Morphine 2 MG/ML Syringe IV (19:36)
[2018-12-16] MEDS: predniSONE 20 MG Tablet 60 MG PO (21:33)
[2018-12-16] MEDS: Famotidine 20 MG Tablet PO (21:34)
[2018-12-16] MEDS: DiphenhydrAMINE 25 MG Capsule 50 MG PO (21:34)
[2018-12-16] MEDS: Atorvastatin Calcium 80 MG Tablet PO (21:35)
[2018-12-17] VITALS (19 sets, daily range): BP systolic 107–155; BP diastolic 70–99; PULSE 55–95; RESP 16–18; TEMP 36.3–37; O2SAT 93–98
--- NOTE | 2018-12-17 05:00 | EKG12_ITS ---
Test Reason : ORDER Blood Pressure : / mmHG Vent. Rate : 067 BPM Atrial Rate : 067 BPM P-R Int : 142 ms QRS Dur : 090 ms QT Int : 388 ms P-R-T Axes : 037 018 012 degrees QTc Int : 409 ms Normal sinus rhythm Normal ECG When compared with ECG of 15-DEC-2018 10:00, MANUAL COMPARISON REQUIRED, DATA IS UNCONFIRMED Confirmed by MAYRA BAPTISTE, OBEY ([id number]), news editor MARVIN CAGE ([id number]) on 12/19/2018 4:05:08 PM Referred By: Isaak Sosa Confirmed By:OBEY NUNEZ MD
[2018-12-17 05:03] LABS: Absolute Lymphocyte Count 1.21 X10^3/ul (0.83-4.51); Absolute Neutrophil Count 8.2 X10^3/uL (2.0-7.7); Basophil# 0.02 X10^3/uL; Basophil% 0.2 % (0-1); Hematocrit 45.6 % (40-54); Hemoglobin 15.1 g/dl (13.0-16.5); Lymphocyte # 1.21 X10^3/ul (4.0); Lymphocyte % 12.7 % (19-41); Mean Corp Hgb Conc 33.1 g/gl (32-36); Mean Corpuscular Hgb 29.9 pg (27.0-32.0); Mean Corpuscular Volume 90.3 fL (80-94); Mean Platelet Vol. 12.7 fl (6.2-12.0); Monocyte# 0.07 X10^3/uL; Monocyte% 0.7 % (0-10); Neutrophil # 8.21 X10^3/uL (2.7-7.7); Neutrophil % 86.3 % (47-70); Platelet Count 244 K/mm3 (150-450); RBC Distribution Width CV 12.2 % (11.6-14.6); RBC Distribution Width SD 39.8 fl (35.1-43.9); Red Blood Count 5.05 M/mm3 (4.6-6.2); White Blood Count 9.5 K/mm3 (4.4-11.0)
[2018-12-17 05:05] LABS: POSITIVE COUNT NO; POSITIVE DIFFERENTIAL NO; POSITIVE MORPHOLOGY NO
[2018-12-17 05:14] LABS: Anion Gap 7 (5-15); BUN 21 mg/dL (7-18); BUN/Creat Ratio 16.2 RATIO (10-20); Calcium,Total 9.3 mg/dL (8.5-10.1); Chloride 107 mmol/L (98-107); EST Glomerular Filtration Rate 64 mL/min (>60); Est Glom Filt Rate - Afr Amer 78 mL/min (>60); Estimated Creatinine Clearance 84.51 ml/min; Glucose 130 mg/dL (74-106); Potassium 5.1 mmol/L (3.5-5.1); Sodium Level 139 mmol/L (136-145)
[2018-12-17 05:24] LABS: Partial Thromboplast Time 29.1 Seconds (24.1-36.2); Prothrombin Time (Protime)PT. 13.1 SECONDS (11.7-14.9)
[2018-12-17] MEDS: Aspirin E.C. 81 MG Tablet PO (06:05)
[2018-12-17] MEDS: Clopidogrel Bisulfate 75 MG Tablet PO (06:06)
[2018-12-17] MEDS: Metoprolol Tartrate 25 MG Tablet 12.5 MG PO (06:06)
[2018-12-17] MEDS: Lisinopril 20 MG Tablet PO (06:06)
[2018-12-17] MEDS: 0.9% NaCl Peripheral Flush Adult/Peds IV (06:10)
[2018-12-17 06:56] LABS: Bacteria 0 SEEN /hpf (None Seen); Mucous, Urine 0 SEEN /hpf (<or=2+); White Blood Cells 0 SEEN /hpf (0-5)
[2018-12-17 07:04] LABS: Color, Urine Yellow (Yellow); Glucose, Dipstick Normal (Normal); Ketone-Dipstick Negative (Negative); Leukocyte Esterase-Dipstick Negative /ul (Negative); Nitrite-Dipstick Negative (Negative); Occult Blood-Urine 10 /ul (Negative); Protein-Dipstick Negative (Negative); Urine Bilirubin Dipstick Negative (Negative); Urine Clarity Sl. Cloudy (Clear); Urine Urobilinogen Normal (Normal)
[2018-12-17 07:08] LABS: Red Blood Cells-Urine 0-5 SEEN /hpf (0-5); Squamous Epithelial Cells - UA 0-5 SEEN /hpf (0-5)
[2018-12-17] MEDS: predniSONE 20 MG Tablet 60 MG PO (08:02)
[2018-12-17] MEDS: DiphenhydrAMINE 25 MG Capsule 50 MG PO (08:02)
[2018-12-17] MEDS: Famotidine 20 MG Tablet PO (08:02)
--- NOTE | 2018-12-17 09:09 | CL.D_ITS ---
Patient Name: MADHAVI MCGUIRE Study Date: 12/17/2018 Performing: Dusty Bhat MD Ht: 72.83 inches 185 cm : 1975 Wt: 207.23 lbs 94 kg Age: 43 Gender: male BSA: 2.18 PROCEDURE(S) PERFORMED HT69-QXS/COR/LV CLINICAL PROFILE AND INDICATIONS Indications: Suspected CAD Heart Failure: None Stress/Imaging Stress Test w/SPECT MPI: Yes Result: NegativeStress Test with SPECT MPI: Negative Angina Classification Anginal Classification w/in 2 Weeks: CCS IV CAD Presentations: Symptom unlikely to be ischemic. CONCLUSIONS Elevated Left Ventricular End Diastolic Pressure Normal LV size, wall motion,and systolic function LVEF: by LV gram 65 % Normal coronary arteries RECOMMENDATIONS Risk factor modification Medical therapy Follow up with primary care physician DESCRIPTION OF PROCEDURE The patient arrived to the procedure lab. The risks and benefits of the procedure as well as a full d escription of our services here and current unavailability of surgical backup were fully explained to the patient and/or their significant other prior to the catheterization. The Timeout was completed, verifying the correct patient and procedure. The patient's procedural site was prepped and draped in the usual fashion. Local anesthetic was given subcutaneously to right groin region with Lidocaine 2%. Using a modified Seldinger technique, arterial access was obtained via the right femoral artery, a 4 Fr sheath was inserted Left Coronary Artery selective angiography was performed in multiple views us ing a 4 Fr. JL5 catheter. Right Coronary Artery selective angiography was then performed in multiple views using a 4 Fr. 3DRC catheter. Left Ventriculography was performed in OWEN projection using a 4 Fr . Pigtail catheter. Simultaneous pressures were then recorded.The arterial sheath was pulled and manual compression applied until hemostasis is achieved. CORONARY ANGIOGRAPHY DOMINANCE: Right Dominant LEFT HEART ASSESSMENT Left Ventricular Ejection Fraction: by LV Gram 65 % Normal LV wall motion Elevated Left Ventricular End Diastolic Pressure LVEDP: 18 mmHg LEFT MAIN: Angiographically normal LEFT ANTERIOR DECENDING ARTERY: Angiographically normal CIRCUMFLEX ARTERY: Angiographically normal RIGHT CORONARY ARTERY: Angiographically normal VALVE FINDINGS: Normal Aortic Valve function Normal Mitral Valve function AORTIC ROOT: Angiographically normal COMPLICATIONS No Complications PROCEDURE MEDICATIONS Versed 1 mg IV Oxygen: 2 L/min via nasal cannula Solu-medrol 125 mg IV 12/17/2018 08:34:24 SUMMARY OF HEMODYNAMIC DATA Time AIR REST ECG 08:19:45 AO 120/77 (96) SA 08:44:57 LV 120/0, 24 08:51:13 LV 123/2, 18 08:51:19 LV 121/10, 31 08:52:20 LV 120/9, 23 08:52:26 LVp 118/8, 18 08:52:31 AOp 118/71 (92) 08:52:37 Signed By Dusty Bhat MD On 12/17/2018 9:08:39 AM Dusty Bhat MD
[2018-12-17] MEDS: 0.9% Normal Saline 1,000 ML 75 ML IV (09:28)
--- NOTE | 2018-12-17 10:58 | PCM.DC ---
- Discharge Diagnoses Current Active Problems: Current Active and Chronic Problems Abnormal cardiac enzyme level (Acute) Concussion (Chronic) Troponin level elevated (Acute) You will use the following diet at home:: Cardiac - <2 grams sodium daily Your food should be the consistency of: Regular Your liquids should be the consistency of: Regular/Thin Discharge Activity: Return to Normal Activity Allergies/Adverse Reactions: Allergies Iodine and Iodide Containing Produc Allergy (Verified 12/17/18 08:25) Hives dust Allergy (Uncoded 12/14/18 23:51) Shortness of breath Medications to take at Discharge Apixaban [Eliquis] 5 mg PO BID #60 tablet 12/01/15 Lisinopril [Zestril] 20 mg PO DAILY #30 tablet 12/13/18 Primary Care Physician: Yoav Almanzar MD [Primary Care Provider] - Please follow up with your Primary Care Physician in: 1-2 weeks Test Results: Test results from this visit will be discussed in further detail at your follow-up appointment, if applicable. Proposed Discharge Date: 12/17/18
--- NOTE | 2018-12-17 11:04 | DCINST_ITS ---
- Discharge Diagnoses Current Active Problems: Current Active and Chronic Problems Abnormal cardiac enzyme level (Acute) Concussion (Chronic) Troponin level elevated (Acute) You will use the following diet at home:: Cardiac - <2 grams sodium daily Your food should be the consistency of: Regular Your liquids should be the consistency of: Regular/Thin Discharge Activity: Return to Normal Activity Allergies/Adverse Reactions: Allergies Iodine and Iodide Containing Produc Allergy (Verified 12/17/18 08:25) Hives dust Allergy (Uncoded 12/14/18 23:51) Shortness of breath Medications to take at Discharge Apixaban [Eliquis] 5 mg PO BID #60 tablet 12/01/15 Lisinopril [Zestril] 20 mg PO DAILY #30 tablet 12/13/18 Primary Care Physician: Yoav Almanzar MD [Primary Care Provider] - Please follow up with your Primary Care Physician in: 1-2 weeks Test Results: Test results from this visit will be discussed in further detail at your follow- up appointment, if applicable. Proposed Discharge Date: 12/17/18
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
--- NOTE | 2018-12-17 17:06 | PCM.PN.CARD ---
Subjectve: The patient underwent diagnostic cardiac catheterization earlier this day. He was subsequently up and ambulating without difficulty. Objective: Vital Signs Temp Pulse Resp BP Pulse Ox 97.4 F L 95 16 155/86 H 95 12/17/18 16:14 12/17/18 16:14 12/17/18 16:14 12/17/18 16:14 12/17/18 16:14 Oxygen Flow Rate (L/min) 2 Oxygen Delivery Method Room Air Weight: 207 lb 1.6 oz Body Mass Index (BMI) 27.3 Finger Stick Blood Glucose 88 Intake and Output for Last 24 Hours 12/15/18 12/16/18 12/17/18 23:59 23:59 23:59 Intake Total 1554 / 1554 0 / 0 859 / 859 Output Total 500 / 500 Balance 1554 / 1554 0 / 0 359 / 359 General: Awake, Alert, Oriented x 3, Cooperative, No Acute Distress HEENT: Atraumatic, Normocephalic, PERRL, EOMI, Sclera Non Icteric Oral: Moist Mucosa Neck: Supple, Good ROM, No JVD Lungs: Clear to auscultation Cardiovascular: Regular Rhythm, Normal S1, Normal S2 Vascular: No Carotid Bruits Abdomen: Bowel Sounds Present, Soft, Non Tender Extremities: No Cyanosis, No Clubbing, No edema Psych/Mental Status: Appropriate 12/17/18 04:54: WBC 9.5, RBC 5.05, Hgb 15.1, Hct 45.6, MCV 90.3, MCH 29.9, MCHC 33.1, RDW 12.2, RDW Differential 39.8, Plt Count 244, MPV 12.7 H, Immature Gran % (Auto) 0.100, Neut % (Auto) 86.3 H, Lymph % (Auto) 12.7 L, [place] % (Auto) 0.7, Eos % (Auto) 0.0, Baso % (Auto) 0.2, Absolute Neuts (auto) 8.2 H, Total Counted Not Reportable 12/17/18 04:54: PT 13.1, INR 1.0, APTT 29.1 12/17/18 04:54: Sodium 139, Potassium 5.1, Chloride 107, Carbon Dioxide 25.0, Anion Gap 7, BUN 21 H, Creatinine 1.30, Est GFR (MDRD) Af Amer 78, Est GFR (MDRD) Non-Af 64, BUN/Creatinine Ratio 16.2, Glucose 130 H, Calcium 9.3 12/17/18 06:30: Urine Color Yellow, Urine Clarity Sl. Cloudy, Urine pH 5.0, Ur Specific [place] 1.020, Urine Protein Negative, Urine Glucose (UA) Normal, Urine Ketones Negative, Urine Occult Blood 10 H, Urine Nitrite Negative, Urine Bilirubin Negative, Urine Urobilinogen Normal, Ur Leukocyte Esterase Negative, Urine RBC 0-5 SEEN, Urine WBC 0 SEEN Rhythm:Sinus rhythm Medical Necessity - Tobacco Use Smoking Status: Never smoker Assessment/Plan 1. Atypical chest discomfort The patient has undergone further evaluation with diagnostic cardiac catheterization. The left ventricle appeared to be normal with LV systolic function. The coronary arteries appear to be angiographically normal. This at the present time it does not appear that he has underlying CAD to explain this chest discomfort or his indeterminate troponin I levels. He is not been found have any obvious underlying myocardial disease to explain his chest discomfort or his troponin I levels. There has been no obvious thromboembolic disease to explain his symptoms or his indeterminate troponin I levels. Based on the neurology consultation was not felt he had an underlying acute neurologic event to explain his symptoms or his troponin I levels. Thus his symptoms appear to be atypical and at the present time non CAD related. His indeterminate troponin I levels are of unknown etiology and significance at this time. From a cardiac standpoint he does not appear to require additional cardiovascular medical management/diagnostic studies/therapeutic intervention. He should continue to follow with his primary care physician for further noncardiac evaluation the aforementioned concerns. 3. TIA/CVA His neurology consultation is appreciated. 4. Vascular malformation He does have some form of a vascular malformation. It has been identified in the past multiple institutions. It is unclear whether it contributes to any of his symptoms or findings. It is also unclear as to whether or not it requires additional evaluation her care at this time. In the interim he states he had been treated medically for his aforementioned events and findings with anticoagulant therapy. From a cardiovascular standpoint, as long as he has no past cardiac catheterization site related adverse events, etc., he should be able to resume his anticoagulant therapy on 12-18-2018. This note was generated using a voice recognition system and there may be incorrect words, spelling or punctuation that were not noted when reviewing the office note prior to saving.
== END 2018-12-17 10:59 | disposition home or self-care (01) ==
LOC: ED 21:51 → PCU 23:07
PROVIDERS: Internal Medicine Cardiovascular Disease; Admitting Provider Hospitalist; Emergency Provider Emergency Medicine; Family Provider Family Medicine; PCP Family Medicine; Referring Provider Hospitalist; Visit Provider Internal Medicine
DX: R07.89 Other chest pain (principal); Q27.39 Arteriovenous malformation, other site; I10 Essential (primary) hypertension; I69.354 Hemiplegia and hemiparesis following cerebral infarction affecting left non-dominant side; R20.2 Paresthesia of skin; I08.1 Rheumatic disorders of both mitral and tricuspid valves; Z79.899 Other long term (current) drug therapy; Z79.01 Long term (current) use of anticoagulants
CPT/HCPCS: 36415; 70544; 70549; 70551; 71045; 80048; 80061; 81001; 84484; 85025; 85610; 85652; 85730; 86141; 93005; 93306; 93458; 96361; 96372; 96374; 96375; 96376; 99152; 99218; 99285; A9585; J7030; Q9957; A4216; C1769; C1894; C8929; G0378; J2405; Q9967

== ENCOUNTER 2018-12-23 20:22 | Emergency (ER) | payer BC, SELFPAY ==
[2018-12-23 20:24] VITALS: BP 139/86; PULSE 84; RESP 14; TEMP 36.6; O2SAT 99; BMI 27.8
--- NOTE | 2018-12-23 20:29 | ED.RN ---
RN CALLED FOR EKG, PULLED OLD EKGS FOR
[2018-12-23 20:33] VITALS: PULSE 87; RESP 18; O2SAT 98
--- NOTE | 2018-12-23 20:47 | EKG12_ITS ---
Test Reason : CP Blood Pressure : / mmHG Vent. Rate : 078 BPM Atrial Rate : 078 BPM P-R Int : 134 ms QRS Dur : 088 ms QT Int : 364 ms P-R-T Axes : 034 016 014 degrees QTc Int : 414 ms Normal sinus rhythm Normal ECG Confirmed by HALEY WILDER ([id number]), digital editor VERONICA CARRILLO ([id number] on 12/27/2018 1:29:36 PM Referred By: JOSE GUADALUPE/SOPHIA Confirmed By:HALEY WILDER
--- NOTE | 2018-12-23 20:48 | RAD_ITS ---
STUDY: X-RAY CHEST REASON FOR EXAM: Male, 43 years old. Chest pain. Arm pain. Patient has known mediastinal and hilar adenopathy. TECHNIQUE: Single AP portable view of the chest. COMPARISON: Chest x-ray 12/14/2018, CT scan 12/13/2018.. FINDINGS: The lungs are clear and expanded. There is no demonstrated pleural abnormality. Normal size heart. Continued prominence of the left hilum consistent with known adenopathy. Normal visualized pulmonary arteries. There is atherosclerotic tortuosity of the aortic arch and descending thoracic aorta. Normal visualized thoracic spine. Normal visualized ribs, clavicles, and shoulders. There is no demonstrated abnormality of the visualized soft tissue structures of the upper abdomen. RAD/Chest 1 View (Portable) IMPRESSION: No change. Lungs clear. Left hilar adenopathy. Electronically Signed: Chuy Guerrero MD at 21:07 EST , Service support ,
[2018-12-23] MEDS: HYDROcodone Bitartrate/Apap 5/325 Tablet PO (20:56)
[2018-12-23 20:59] VITALS: O2SAT 96
[2018-12-23] MEDS: 0.9% Normal Saline 1,000 ML 150 ML IV (20:59)
[2018-12-23 21:01] LABS: Absolute Lymphocyte Count 3.69 X10^3/ul (0.83-4.51); Absolute Neutrophil Count 4.7 X10^3/uL (2.0-7.7); Basophil# 0.04 X10^3/uL; Basophil% 0.4 % (0-1); Eosinophil# 0.17 X10^3/uL; Eosinophils% 1.8 % (0-5); Hematocrit 44.8 % (40-54); Hemoglobin 14.8 g/dl (13.0-16.5); Lymphocyte # 3.69 X10^3/ul (4.0); Lymphocyte % 38.9 % (19-41); Mean Corpuscular Volume 90.9 fL (80-94); Mean Platelet Vol. 12.7 fl (6.2-12.0); Monocyte# 0.84 X10^3/uL; Monocyte% 8.9 % (0-10); Neutrophil # 4.71 X10^3/uL (2.7-7.7); Neutrophil % 49.7 % (47-70); Platelet Count 251 K/mm3 (150-450); RBC Distribution Width CV 12.5 % (11.6-14.6); RBC Distribution Width SD 41.4 fl (35.1-43.9); Red Blood Count 4.93 M/mm3 (4.6-6.2); White Blood Count 9.5 K/mm3 (4.4-11.0)
[2018-12-23 21:04] LABS: POSITIVE COUNT NO; POSITIVE DIFFERENTIAL NO; POSITIVE MORPHOLOGY NO
[2018-12-23 21:21] LABS: Anion Gap 5 (5-15); BUN 12 mg/dL (7-18); BUN/Creat Ratio 10.8 RATIO (10-20); Calcium,Total 8.5 mg/dL (8.5-10.1); Chloride 108 mmol/L (98-107); Creatinine, Serum 1.11 mg/dL (0.70-1.30); EST Glomerular Filtration Rate 77 mL/min (>60); Est Glom Filt Rate - Afr Amer 94 mL/min (>60); Estimated Creatinine Clearance 98.98 ml/min; Glucose 99 mg/dL (74-106); Potassium 4.2 mmol/L (3.5-5.1); Sodium Level 141 mmol/L (136-145)
--- NOTE | 2018-12-23 22:14 | ED.DCSUM_ITS ---
- ER Visit Summary Date of Service: 12/23/18 Chief Complaint: Chest pain History of Present Illness: The patient is a [address] Go. He has left-sided chest pain that began or . Is been continuous since that time. Is 1010 at worst and 7-10 currently. Is worsened by nothing including exe rtion, movement, or breathing. Is also relieved by nothing. He said nausea and shortness of breath. No vomiting or diaphoresis. The patient has been admitted to the hospital for this and had an extensive evaluation which included a stress test, a heart catheterization, a CTA of the chest, MRI/MRA of the head and neck, and echocardiogram, without a source for this found. The patient is anticoagulated with Eliquis. Physical Examination: Vitals: Stable. Afebrile. General: Well-nourished and well-developed. Head: Normocephalic atraumatic. Neck: Supple, no lymphadenopathy. No JVD. Nontender. Cardiovascular: Regular rate and rhythm. No murmurs. Respiratory: No respiratory distress. Clear to auscultation bilaterally. Moderate tenderness palpation over the upper lateral chest on the left that does reproduce his pain. Abdominal: Soft, nontender, nondistended, normal bowel sounds. No guarding, rebound, or peritoneal signs. Back: Nontender. Extremities: Nontender, no edema. Skin: Normal color, no rash. Neurologic: Alert and oriented ?3. Cranial nerves II through XII are intact. Normal strength and sensation. Psych: Normal affect. Test Results: EKG is sinus at [address] changes. Is unchanged from December 17. Troponin 0 0.022. This is the lowest it has been this year. Chem-7 is more for chloride 108. CBC is normal. Chest x-ray shows no acute disease. Emergency Department Course and Treatment: Patient was treated with a dose of [place]. He is resting comfortably. Treatment Plan: Patient will be discharged prescription for 10 [place]. Instructed to follow-up his primary care physician in 3-5 days if not improving. Return to the emergency department for any worsening symptoms. Disposition: To home in improved and stable condition. Impression: 1. Musculoskeletal chest pain. This note was generated with [employer] dictation software. It may contain incorrect words, spelling, and punctuation that were not noted in review of the chart prior to signing ED Disposition - Plan for ED Patient: Disposition: Home or Assisted Living Instructions: ED Chest Pain NonCardiac Prescriptions: Hydrocodone Bitart/Apap 5-325 [[place] 5MG-325MG] 1 tablet PO Q6H PRN PRN 3 Days #10 tablet PRN Reason: Pain Referrals: Yoav Almanzar MD [Primary Care Provider] - 1 Week if not improving
[2018-12-23 22:18] VITALS: BP 118/70; PULSE 72; RESP 17; O2SAT 96
== END 2018-12-23 22:22 | disposition home or self-care (01) ==
LOC: ED 20:46
PROVIDERS: Emergency Provider Emergency Medicine; Family Provider Family Medicine; PCP Family Medicine
DX: R07.89 Other chest pain (principal); I10 Essential (primary) hypertension; Z79.01 Long term (current) use of anticoagulants; Z86.73 Personal history of transient ischemic attack (TIA), and cerebral infarction without residual deficits
CPT/HCPCS: 71045; 80048; 84484; 85025; 93005; 96360; 99285; J7030; A4216

== ENCOUNTER → 2019-01-15 08:09 | Outpatient (CLI) | payer BC, SELFPAY ==
[2018-12-24 09:06] VITALS: BMI 26.4
--- NOTE | 2019-01-15 08:16 | RAD_ITS ---
STUDY: X-RAY - ESOPHAGUS (BARIUM SWALLOW) WITH FLUOROSCOPY REASON FOR EXAM: Male, 43 years old. Dysphagia. TECHNIQUE: 14 view(s) of the esophagus were obtained following swallowing of barium. FLUOROSCOPY TIME (if supplied): (0:30) minutes/seconds COMPARISON: None. FINDINGS: There is no demonstrated esophageal foreign body. There is no demonstrated stricture or mucosal abnormality. Normal gastroesophageal junction, without a demonstrated hiatal hernia. The patient ingest a 12 mm tablet of barium without any difficulty. Normal visualized aortic arch and descending thoracic aorta. Normal visualized pulmonary parenchyma. Normal visualized osseous structures of the thorax. RAD/Esophagus Only IMPRESSION: Normal plain film x-ray examination (barium swallow) of the esophagus. Electronically Signed: Blade Styles, at 14:20 EDT , Service support ,
== END ==
PROVIDERS: Family Provider Family Medicine; PCP Family Medicine; Referring Provider Internal Medicine Gastroenterology; Visit Provider Internal Medicine Gastroenterology
DX: R13.10 Dysphagia, unspecified (principal)
CPT/HCPCS: 74220

== ENCOUNTER 2019-08-24 20:51 | Emergency (ER) | payer BC, SELFPAY ==
[2018-12-24 09:06] VITALS: BMI 26.4
[2019-08-24 20:52] VITALS: BP 135/83; PULSE 73; RESP 15; RESP 16; TEMP 35.7; O2SAT 92; O2SAT 97; BMI 27.3
--- NOTE | 2019-08-24 21:04 | RAD_ITS ---
STUDY: X-RAY CHEST REASON FOR EXAM: Male, 44 years old. Dyspnea TECHNIQUE: Single AP portable view of the chest. COMPARISON: December 23, 2018 FINDINGS: There is subtle left lower lobe airspace disease which could represent early pneumonia. There is no demonstrated pleural abnormality. Normal size heart. Normal mediastinum and corin. Normal visualized pulmonary arteries. Normal visualized aortic arch and descending thoracic aorta. Normal visualized thoracic spine. Normal visualized ribs, clavicles, and shoulders. There is no demonstrated abnormality of the visualized soft tissue structures of the upper abdomen. RAD/Chest 1 View (Portable) IMPRESSION: Suggestion of early left lower lobe pneumonia Electronically Signed: Pj Muniz DO at 21:43 EST Tel , Service support ,
--- NOTE | 2019-08-24 21:04 | EKG12_ITS ---
Test Reason : SOB Blood Pressure : / mmHG Vent. Rate : 068 BPM Atrial Rate : 068 BPM P-R Int : 136 ms QRS Dur : 094 ms QT Int : 392 ms P-R-T Axes : 039 032 030 degrees QTc Int : 416 ms Normal sinus rhythm Normal ECG Confirmed by MANUEL BAPTISTE, MICHAEL ([id number]), tape editor HEMANTH CASEY ([id number]) on 08/27/2019 10:58:04 AM Referred By: SAIRA Confirmed By:MICHAEL JACKSON MD
--- NOTE | 2019-08-24 21:05 | ED.VIS.GEN ---
History of Present Illness Detail of Chief Complaint: Short of breath, cough, dizzy, nausea Informant: Patient Onset: Hours - 3 hours Current Severity: Mild Maximum Severity: Moderate Narrative: Patient states around 7 PM this evening he noted some shortness of breath. He states he feels like it is cannot get a deep breath. He has had dry cough and some mild substernal chest pressure. He states he feels somewhat lightheaded. Patient has a history of asthma. Family states that just before symptoms started they had taken their dog to the veterinary emergency room. They are not sure if there may have been another animal there that he reacted to. Patient tried his albuterol inhaler at home without improvement. Patient was admitted to the hospital earlier this year with elevated troponins. He states that cardiac cath was clean and they were never able to differentiate why his cardiac enzymes were abnormal. <Shelby Verma - Last Filed: 08/25/19 00:50> <Bryson Ellison - Last Filed: 08/25/19 03:32> Chief Complaint: Shortness of Breath Past Medical History Surgical History: no surgical history Lives: With Family Smoking Status: Never smoker - Family History Maternal Family History: Family History (Last Updated 12/24/18 @ 09:16 by Nelia Burgos) Mother Breast cancer Father Parkinsons Hypertension Grandfather Heart disease Myocardial infarction Grandmother Hypertension Family History: Reports: Cancer - Breast CA in mother, 50s. Maternal grandfather had heart attack when he was in his 60s. Paternal Family History: Family History (Last Updated 12/24/18 @ 09:16 by Nelia Burgos) Mother Breast cancer Father Parkinsons Hypertension Grandfather Heart disease Myocardial infarction Grandmother Hypertension Family History: Reports: Heart Disease, - - Parkinson's disease. <Shelby Verma - Last Filed: 08/25/19 00:50> - Family History Maternal Family History: Family History (Last Updated 12/24/18 @ 09:16 by Nelia Burgos) Mother Breast cancer Father Parkinsons Hypertension Grandfather Heart disease Myocardial infarction Grandmother Hypertension Paternal Family History: Family History (Last Updated 12/24/18 @ 09:16 by Nelia Burgos) Mother Breast cancer Father Parkinsons Hypertension Grandfather Heart disease Myocardial infarction Grandmother Hypertension <Bryson Ellison - Last Filed: 08/25/19 03:32> - Allergies and Home Meds Allergies/Adverse Reactions: Allergies Iodine and Iodide Containing Produc Allergy (Verified 12/23/18 20:23) Hives dust Allergy (Uncoded 12/23/18 20:23) Shortness of breath Review of Systems General: Denies: Chills, Fever Eyes: Denies: Visual changes - bilaterally ENT: Denies: Bilateral ear pain Cardiovascular: Reports: Chest pain - Chest pressure Respiratory: Reports: Dyspnea, Cough. Denies: Sputum Gastrointestinal: Reports: Nausea. Denies: Abdominal pain, Vomiting Genitourinary: Denies: Dysuria Musculoskeletal: Denies: Swelling, Extremity Pain Skin: Denies: Rash Neurological: Reports: - - Dizzy. Denies: Headache Hematologic: Denies: Easy bruising Allergy: Denies: Uticaria <Shelby Verma - Last Filed: 08/25/19 00:50> Physical Exam Vital Signs/Narrative: Vital Signs Temp Pulse Resp BP Pulse Ox 08/24/19 20:52 96.2 F L 73 16 135/83 H 97 Inital Vital Signs reviewed: Yes General: Well nourished, Well developed Head: Normocephalic ENT: Moist mucous membranes Cardiovascular: Regular rate, Regular rhythm Respiratory: No distress, CTA bilaterally Abdomen: Soft, Nontender Extremities: Nontender Skin: Normal color, No rash Neurological: Alert, Oriented x3 Psychological: Normal affect <Shelby Verma - Last Filed: 08/25/19 00:50> Vital Signs/Narrative: Vital Signs Pulse Resp BP Pulse Ox 08/25/19 02:00 62 18 124/83 H 96 08/25/19 00:00 86 18 141/72 H 96 <Bryson Ellison - Last Filed: 08/25/19 03:32> Diagnostic/Tx/Re-eval Impressions Chest X-Ray 08/24/19 21:04 IMPRESSION: Suggestion of early left lower lobe pneumonia Electronically Signed: Pj Muniz DO at 21:43 EST Tel , Service support , Chest CTA 08/24/19 22:13 IMPRESSION: No pulmonary embolism, aortic aneurysm, or aortic dissection. Persistent 15 x 12 cm posterior mediastinal hypervascular mass with fat calcifications and soft tissue presents. Enlarged draining vein from this mass into the left pulmonary vein. This mass has been discussed on many previous CTs. It is similar in appearance. And has been referred to as a vascular malformation. It does extend from the hilum the hilum, splaying the pulmonary vein and extend up to the thoracic inlet, and down to the distal esophagus. It does appear to surround the esophagus and impacts invade into the esophageal wall. Individualized dose optimization techniques were used for this CT. at 0017 Reported and signed by: Yamil Montana MD Electronically Signed: Yamil Montana MD at 0:16 EST Tel , Service support , 08/24/19 21:04 Chest 1 View (Portable) [RAD] Stat 08/24/19 22:13 CTA Chest W/WO Contrast [CT] Stat Laboratory Results 08/24/19 08/24/19 19:05 19:05 WBC 8.5 RBC 4.77 Hgb 14.5 Hct 43.0 MCV 90.1 MCH 30.4 MCHC 33.7 RDW Std Deviation 38.3 RDW Coeff of Daniella 11.6 Plt Count 219 MPV 12.9 H Immature Gran % (Auto) 0.400 Neut % (Auto) 45.6 L Lymph % (Auto) 44.4 H Grimes % (Auto) 6.8 Eos % (Auto) 2.3 Baso % (Auto) 0.5 Absolute Neuts (auto) 3.9 Absolute Lymphs (auto) 3.79 Nucleated RBC % 0 Sodium 141 Potassium 3.7 Chloride 107 Carbon Dioxide 29.0 Anion Gap 5 BUN 14 Creatinine 1.07 Estim Creat Clear Calc 104.56 Est GFR (MDRD) Af Amer 97 Est GFR (MDRD) Non-Af 80 BUN/Creatinine Ratio 13.1 Glucose 103 Calcium 9.1 Troponin I 0.071 H - EKG Initial EKG Interpretation: Sinus Rhythm - Sinus at 68 with no acute ischemia. - Medical Decision Making Patient was given a DuoNeb treatment along with IV Solu-Medrol. On repeat evaluation he stated his chest pressure and shortness of breath were resolved. He still had some mild nausea. He was given a dose of Zofran. Troponin is bumped again, similar to when he underwent heart cath in November with clean vessels. CTA of the chest was obtained. There is no evidence of PE or dissection. Questionable left lower lobe pneumonia noted on chest x-ray is not evident on CT. The AV malformation in his chest remains with coronal images measuring it at 15.3 x 12 cm. I spoke with Dr. Bhat, on-call for cardiology who would seen the patient in November. He is concerned that the AV malformation may be causing shunting of blood away from the myocardium and causing these intermittent bumps in his troponin. He feels the patient will be better served at a tertiary care facility where this AVM can be further evaluated to determine if anything needs to be done with that at this time. <Shelby Verma - Last Filed: 08/25/19 00:50> - Medical Decision Making Patient out to me. His labs are unremarkable. The CT of the chest showed the previously known AVM. I spoke to [facility] transfer physician. He spoke to the cardiothoracic fellow they felt there was in the patient's best interest to have this worked up as an outpatient. Due to his initially elevated troponin which is indeterminate that was repeated several hours later and was improving at 0.062. I reviewed his other labs. All this is been discussed with the patient. He was given a number to follow-up with a Dr. Funez, who is a cardiothoracic surgeon at the [facility]. <Bryson Ellison - Last Filed: 08/25/19 03:32> ED Disposition <Shelby Verma - Last Filed: 08/25/19 00:50> <Bryson Ellison - Last Filed: 08/25/19 03:32> - Plan for ED Patient: Disposition: Home or Assisted Living Diagnosis: Arteriovenous malformation (AVM), Elevated troponin Additional Instructions: I spoke to the [facility] several times tonight. They feel that this AVM in the chest cavity is best treated as an outpatient work-up. Sunday call Dr. Funez, a cardiothoracic surgeon to [facility], whose number is and their office will get you scheduled for an appointment and an outpatient work-up for this.
[2019-08-24 21:10] VITALS: PULSE 74; RESP 16
[2019-08-24] MEDS: Ipratropium/Albuterol Sulfate 3 ML AMPUL.NEB INHALATION (21:12)
[2019-08-24] MEDS: 0.9% Normal Saline 1,000 ML 150 ML IV (21:26)
[2019-08-24] MEDS: MethylPREDNISolone 125 MG/2 ML Vial IV (21:26)
[2019-08-24 21:49] LABS: Absolute Lymphocyte Count 3.79 X10^3/uL (0.83-4.51); Absolute Neutrophil Count 3.9 X10^3/uL (2.0-7.7); Basophil# 0.04 X10^3/uL; Basophil% 0.5 % (0-1); Eosinophils% 2.3 % (0-5); Hemoglobin 14.5 g/dL (13.0-16.5); Lymphocyte # 3.79 X10^3/ul (4.0); Lymphocyte % 44.4 % (19-41); Mean Corp Hgb Conc 33.7 g/dL (32-36); Mean Corpuscular Hgb 30.4 pg (27.0-32.0); Mean Corpuscular Volume 90.1 fL (80-94); Mean Platelet Vol. 12.9 fl (6.2-12.0); Monocyte# 0.58 X10^3/uL; Monocyte% 6.8 % (0-10); NRBC Flagged by Analyzer 0 % (0-5); Neutrophil % 45.6 % (47-70); Platelet Count 219 K/mm3 (150-450); RBC Distribution Width CV 11.6 % (11.6-14.6); RBC Distribution Width SD 38.3 fl (35.1-43.9); Red Blood Count 4.77 M/mm3 (4.6-6.2); White Blood Count 8.5 K/mm3 (4.4-11.0)
[2019-08-24 22:01] LABS: Anion Gap 5 (5-15); BUN 14 mg/dL (7-18); BUN/Creat Ratio 13.1 RATIO (10-20); Calcium,Total 9.1 mg/dL (8.5-10.1); Chloride 107 mmol/L (98-107); Creatinine, Serum 1.07 mg/dL (0.70-1.30); EST Glomerular Filtration Rate 80 mL/min (>60); Est Glom Filt Rate - Afr Amer 97 mL/min (>60); Estimated Creatinine Clearance 104.56 ml/min; Glucose 103 mg/dL (74-106); Potassium 3.7 mmol/L (3.5-5.1); Sodium Level 141 mmol/L (136-145)
--- NOTE | 2019-08-24 22:13 | CT_ITS ---
HISTORY: SOB,COUGH AND NAUSEA,DIZZINESSHX:ASTHMA,AVM,HTN,TIAIODINE ALLERGY-WAS PRE-TREATED TECHNIQUE: Helically acquired images were obtained of the chest following the intravenous administration of 100 ML of Isovue-370 Iodinated contrast. as per pulmonary angiogram protocol with 2D MIP reconstructions. A radiation dose optimization technique was used for this scan. COMPARISON: Of the patient's 41 previous radiographic exams at this institution alone, the Most recent comparison CT scan of the chest is December 13, 2018 FINDINGS: # of images incl. paperwork: [id number] Lungs are clear but for trace basilar atelectasis. No effusions. Within the thoracic spinekyphosis persists. Sclerosis within the T5 vertebral body mostly within the vertebral body with some sclerosis in the posterior elements, and some sclerosis within the superior facets of the T6 vertebral body on the left. This is unchanged since the previous study Vertebral body height is mostly normal with minimal wedging Facets are well aligned. No rib lesions are perceived. Heart is not enlarged. Thoracic aorta is normal. No aneurysms, stenoses, dissections, nor occlusions. The posterior mediastinal mass with multiple calcifications persists. On the coronal images I measure this mass it 15.3 x 12 cm. It is interdigitated with fat calcifications and an enlarged draining vein which drains into the left pulmonary vein. This mass has been called a vascular malformation on many previous studies. It is similar in appearance. Esophageal wall thickening with this mass abutting and surrounding the sides of the esophagus persists. There is likely invasion of this mass into the esophagus. No pulmonary emboli. Visualized portions of the upper abdomen are without identified acute pathology. CT/CTA Chest W/WO Contrast IMPRESSION: No pulmonary embolism, aortic aneurysm, or aortic dissection. Persistent 15 x 12 cm posterior mediastinal hypervascular mass with fat calcifications and soft tissue presents. Enlarged draining vein from this mass into the left pulmonary vein. This mass has been discussed on many previous CTs. It is similar in appearance. And has been referred to as a vascular malformation. It does extend from the hilum the hilum, splaying the pulmonary vein and extend up to the thoracic inlet, and down to the distal esophagus. It does appear to surround the esophagus and impacts invade into the esophageal wall. Individualized dose optimization techniques were used for this CT. at 0017 Reported and signed by: Yamil Montana MD Electronically Signed: Yamil Montana MD at 0:16 EST Tel , Service support ,
[2019-08-24] MEDS: Ondansetron 4 MG/2 ML Vial IV (22:18)
[2019-08-24] MEDS: DiphenhydrAMINE 50 MG/ML Syringe 25 MG IV (22:18)
[2019-08-24 22:54] VITALS: BP 133/73; PULSE 64; RESP 16; O2SAT 95
[2019-08-25] VITALS: BP 141/72; PULSE 86; RESP 18; O2SAT 96
[2019-08-25 02:00] VITALS: BP 124/83; PULSE 62; RESP 18; O2SAT 96
--- NOTE | 2019-08-25 02:40 | ED.DEP ---
ED Disposition - Plan for ED Patient: Disposition: Home or Assisted Living Diagnosis: Arteriovenous malformation (AVM), Elevated troponin Additional Instructions: I spoke to the [facility] several times tonight. They feel that this AVM in the chest cavity is best treated as an outpatient work-up. Sunday call Dr. Funez, a cardiothoracic surgeon to [facility], whose number is and their office will get you scheduled for an appointment and an outpatient work-up for this.
[2019-08-25 03:30] VITALS: BP 124/83; PULSE 73; RESP 16; O2SAT 94
== END 2019-08-25 03:46 | disposition home or self-care (01) ==
PROVIDERS: Emergency Medicine; Emergency Provider Emergency Medicine; Family Provider Family Medicine; PCP Family Medicine
DX: R79.89 Other specified abnormal findings of blood chemistry (principal); Q27.30 Arteriovenous malformation, site unspecified; J45.909 Unspecified asthma, uncomplicated
CPT/HCPCS: 71045; 71275; 80048; 84484; 85025; 93005; 94640; 96361; 96374; 96375; 99284; J7030; Q9967; A4216; J2405

== ENCOUNTER 2019-08-31 15:38 | Emergency (ER) | payer BC, SELFPAY ==
[2019-08-31 15:39] VITALS: BP 158/101; PULSE 85; RESP 16; TEMP 36.6; O2SAT 96; BMI 27.3
[2019-08-31 15:46] VITALS: O2SAT 98
--- NOTE | 2019-08-31 16:03 | EKG12_ITS ---
Test Reason : SOB Blood Pressure : / mmHG Vent. Rate : 077 BPM Atrial Rate : 077 BPM P-R Int : 134 ms QRS Dur : 090 ms QT Int : 366 ms P-R-T Axes : 033 006 007 degrees QTc Int : 414 ms Normal sinus rhythm Minimal voltage criteria for LVH, may be normal variant Borderline ECG Confirmed by MAYRA BAPTISTE, OBEY ([id number]), book editor EDIN PELAYO ([id number]) on 09/02/2019 2:27:47 PM Referred By: SHAYY Confirmed By:OBEY NUNEZ MD
--- NOTE | 2019-08-31 16:05 | RAD_ITS ---
STUDY: X-RAY CHEST REASON FOR EXAM: Male, 44 years old. Dyspnea on exertion TECHNIQUE: PA and lateral views of the chest. COMPARISON: 08/24/2019 FINDINGS: The lungs are clear and expanded. There is no demonstrated pleural abnormality. Normal size heart. Normal mediastinum and corin. Normal visualized pulmonary arteries. Normal visualized aortic arch and descending thoracic aorta. Normal visualized thoracic spine. Normal visualized ribs, clavicles, and shoulders. There is no demonstrated abnormality of the visualized soft tissue structures of the upper abdomen. RAD/Chest PA and Lateral IMPRESSION: Normal x-ray examination of the chest. Electronically Signed: Pj Muniz DO at 16:40 EST Tel , Service support ,
--- NOTE | 2019-08-31 16:13 | ED.DCSUM_ITS ---
History of Present Illness Chief Complaint: Shortness of Breath Detail of Chief Complaint: Congestion, dyspnea on exertion Informant: Patient, Family, Significant Other Onset: Weeks Context: Onset with activity, Sudden Onset Timing: Intermittent Quality: Shortness of breath Location: While picking up the dogs stool Current Severity: Mild Maximum Severity: Moderate Worsened by: Activity Relieved by: Nothing Associated Symptoms: Lightheadedness Narrative: Patient is a 44-year-old male who was seen in the [facility] and apparently admitted for similar symptoms. He was discharged home. was dissatisfied that nothing was found. He was taken to the [facility] this past August 25 and discharged on August 27. He had an extensive work-up with no cause for his symptoms. He had a stress test November of this year by Dr. Bhat which was negative. He has a history of a hemangioma that was diagnosed in 2007. He denies hemoptysis. He denies leg pain, swelling discoloration. He denies fever, chills night sweats. He denies ocular, visual or auditory symptoms. He complains of chronic nasal congestion and drainage. He denies sore throat. His cough is nonproductive. He denies wheezing. He states when he was at the [facility] he became short of breath after walking 100 feet. He did not desaturate. He denies hematemesis, melena hematochezia. He denies urologic symptoms. He denies leg pain, swelling discoloration. He denies anesthesia, paresthesia or motor weakness in his upper or lower extremities. He reports chronic dizziness. Prior similar symptoms: Yes Recent Illness/Hospitalization: Yes - Past Medical History (1) Abnormal cardiac enzyme level Status: Acute (2) AVM (arteriovenous malformation) Status: Chronic (3) Esophageal/Airway AVM Status: Chronic (4) Hemiparesis affecting left side as late effect of cerebrovascular accident Status: Chronic (5) Hypertension Status: Chronic (6) Seasonal allergies Status: Chronic Past Medical History - Allergies and Home Meds Allergies/Adverse Reactions: Allergies Iodine and Iodide Containing Produc Allergy (Verified 08/31/19 15:43) Hives dust Allergy (Uncoded 08/31/19 15:43) Shortness of breath Primary Care Physician: Yoav Almanzar MD [Primary Care Provider] - Prior records reviewed: Yes Surgical History: no surgical history Lives: Spouse/ Significant Other, With Family Smoking Status: Never smoker Alcohol: None Drugs: None - Family History Maternal Family History: Family History (Last Updated 12/24/18 @ 09:16 by Nelia Burgos) Mother Breast cancer Father Parkinsons Hypertension Grandfather Heart disease Myocardial infarction Grandmother Hypertension Family History: Reports: Cancer - Breast CA in mother, 50s. Maternal grandfather had heart attack when he was in his 60s. Paternal Family History: Family History (Last Updated 12/24/18 @ 09:16 by Nelia Burgos) Mother Breast cancer Father Parkinsons Hypertension Grandfather Heart disease Myocardial infarction Grandmother Hypertension Family History: Reports: Heart Disease, - - Parkinson's disease. Review of Systems General: Denies: Chills, Fever, Sweats Eyes: Denies: Visual changes - bilaterally, Blurred Vision - bilaterally, Diplopia ENT: Denies: Bilateral ear pain, Rhinorrhea, Sore throat Cardiovascular: Reports: Palpitations. Denies: Chest pain, Heart racing Respiratory: Reports: Dyspnea, Cough, Sputum. Denies: Dyspnea on exertion, Orthopnea Gastrointestinal: Denies: Abdominal pain, Nausea, Vomiting, Diarrhea, Melena, Hematochezia Genitourinary: Denies: Dysuria, Hematuria, Frequency Musculoskeletal: Denies: Myalgias, Arthralgias, Neck pain, Back pain, Swelling, Extremity Pain Skin: Denies: Rash, Wounds Neurological: Denies: Headache, Weakness, Numbness Hematologic: Denies: Easy bruising, Easy bleeding Physical Exam Vital Signs/Narrative: Vital Signs Temp Pulse Resp BP Pulse Ox 08/31/19 15:39 97.9 F 85 16 158/101 H 96 Inital Vital Signs reviewed: Yes General: Well nourished, Well developed, No Acute Distress Head: Normocephalic, Atraumatic Eyes: Perrl, EOMI ENT: Moist mucous membranes, No rhinorrhea Neck: Supple, Nontender, No lymphadenopathy, No JVD Cardiovascular: Regular rate, Regular rhythm, No murmurs, Normal S1, Normal S2 Respiratory: No distress, CTA bilaterally, Chest nontender Abdomen: Soft, Nontender, Nondistended, Normal bowel sounds Back: Nontender, Normal Inspection Extremities: Nontender, No edema Skin: Normal color, No rash, No Trauma. Negative for: Cyanosis, Diaphoresis, Jaundice Neurological: Alert, Oriented x3, Cranial nerves II-XII grossly intact, Normal Strength, Normal Sensation Psychological: Normal affect, Normal Mood Diagnostic/Tx/Re-eval Chest X-Ray - ED: 2 View, Read by ED Physician, Normal, Heart, Lungs, Mediastinum, Bony Structures, No Acute Disease, - - X-ray is unchanged from August 24, 2019. There is slight difference in technique. We will obtain chest x-ray to look for evidence of pneumothorax, pneumonia or heart failure. CBC was obtained to assess for anemia. Conference of metabolic panel was obtained as well to assess electro lites, renal function and liver enzymes. EKG was obtained per nurse protocol and is unremarkable. 08/31/19 16:05 Chest PA and Lateral [RAD] Stat Laboratory Results 08/31/19 08/31/19 15:50 15:50 WBC 8.3 RBC 5.12 Hgb 15.5 Hct 45.4 MCV 88.7 MCH 30.3 MCHC 34.1 RDW Std Deviation 36.7 RDW Coeff of Daniella 11.4 L Plt Count 221 MPV 13.2 H Immature Gran % (Auto) 0.400 Neut % (Auto) 52.3 Lymph % (Auto) 36.1 Major % (Auto) 8.1 Eos % (Auto) 2.3 Baso % (Auto) 0.8 Absolute Neuts (auto) 4.3 Absolute Lymphs (auto) 2.98 Nucleated RBC % 0 Sodium 140 Potassium 4.1 Chloride 107 Carbon Dioxide 28.0 Anion Gap 5 BUN 12 Creatinine 1.15 Estim Creat Clear Calc 97.29 Est GFR (MDRD) Af Amer 90 Est GFR (MDRD) Non-Af 74 BUN/Creatinine Ratio 10.4 Glucose 89 Calcium 9.2 Total Bilirubin 0.40 AST 15 ALT 28 Alkaline Phosphatase 78 Troponin I < 0.015 Total Protein 7.5 Albumin 3.8 Globulin 3.7 Albumin/Globulin Ratio 1.0 Blood results are unremarkable. - Rhythm Strip Rhythm Strip: Sinus Rhythm Rate: 80 - EKG Initial EKG Interpretation: Sinus Rhythm - Sinus rhythm with a ventricular rate of 77. TN interval 134 ms. QS duration 90 ms. QT duration 366 ms. [place] is normal. There are no ischemic changes noted. - Medical Decision Making Patient had recent admission to [facility] for similar presentation with no etiology found. Since she reports acute exacerbation chest x-ray was obtained to evaluate for pneumonia, pneumothorax. CBC to evaluate for anemia. Based on his past medical history a conference of metabolic panel was obtained to assess renal function, electrolytes and liver enzymes. His work-up is negative. He and his were told the cause of his symptoms is unknown and his work-up today is unremarkable as well. ED Disposition - Plan for ED Patient: Disposition: Home or Assisted Living Diagnosis: Dyspnea Instructions: ED Dyspnea Referrals: Yoav Almanzar MD [Primary Care Provider] - 3-5 Days
[2019-08-31 16:17] LABS: Absolute Lymphocyte Count 2.98 X10^3/uL (0.83-4.51); Absolute Neutrophil Count 4.3 X10^3/uL (2.0-7.7); Basophil# 0.07 X10^3/uL; Basophil% 0.8 % (0-1); Eosinophil# 0.19 X10^3/uL; Eosinophils% 2.3 % (0-5); Hematocrit 45.4 % (40-54); Hemoglobin 15.5 g/dL (13.0-16.5); Lymphocyte # 2.98 X10^3/ul (4.0); Lymphocyte % 36.1 % (19-41); Mean Corp Hgb Conc 34.1 g/dL (32-36); Mean Corpuscular Hgb 30.3 pg (27.0-32.0); Mean Corpuscular Volume 88.7 fL (80-94); Mean Platelet Vol. 13.2 fl (6.2-12.0); Monocyte# 0.67 X10^3/uL; Monocyte% 8.1 % (0-10); NRBC Flagged by Analyzer 0 % (0-5); Neutrophil # 4.32 X10^3/uL (2.7-7.7); Neutrophil % 52.3 % (47-70); Platelet Count 221 K/mm3 (150-450); RBC Distribution Width CV 11.4 % (11.6-14.6); RBC Distribution Width SD 36.7 fl (35.1-43.9); Red Blood Count 5.12 M/mm3 (4.6-6.2); White Blood Count 8.3 K/mm3 (4.4-11.0)
[2019-08-31 16:28] LABS: AST(SGOT) 15 U/L (15-37); Alanine Aminotransfer ALT/SGPT 28 U/L (16-61); Albumin, Serum 3.8 g/dL (3.2-5.0); Alkaline Phosphatase 78 U/L (45-117); Anion Gap 5 (5-15); BUN 12 mg/dL (7-18); BUN/Creat Ratio 10.4 RATIO (10-20); Calcium,Total 9.2 mg/dL (8.5-10.1); Chloride 107 mmol/L (98-107); Creatinine, Serum 1.15 mg/dL (0.70-1.30); EST Glomerular Filtration Rate 74 mL/min (>60); Est Glom Filt Rate - Afr Amer 90 mL/min (>60); Estimated Creatinine Clearance 97.29 ml/min; Globulin 3.7 g/dL (2.2-4.2); Glucose 89 mg/dL (74-106); Potassium 4.1 mmol/L (3.5-5.1); Protein, Total 7.5 g/dL (6.4-8.2); Sodium Level 140 mmol/L (136-145)
[2019-08-31 17:25] VITALS: BP 142/91; PULSE 83; RESP 14; O2SAT 97
== END 2019-08-31 17:26 | disposition home or self-care (01) ==
PROVIDERS: Emergency Provider Emergency Medicine; Family Provider Family Medicine; PCP Family Medicine
DX: R06.02 Shortness of breath (principal); I69.354 Hemiplegia and hemiparesis following cerebral infarction affecting left non-dominant side; I10 Essential (primary) hypertension; Q27.30 Arteriovenous malformation, site unspecified; Z79.01 Long term (current) use of anticoagulants; Z79.899 Other long term (current) drug therapy
CPT/HCPCS: 71046; 80053; 84484; 85025; 93005; 99285; A4216

== ENCOUNTER 2019-12-25 06:31 | Observation (INO) | payer BC, SELFPAY ==
[2019-12-25] VITALS (18 sets, daily range): BP systolic 125–158; BP diastolic 71–93; PULSE 61–97; RESP 14–24; TEMP 36.5–36.8; O2SAT 95–98; BMI 28.5; BMI 27.9; BMI 28.0
--- NOTE | 2019-12-25 06:41 | RAD_ITS ---
STUDY: X-RAY CHEST REASON FOR EXAM: Male, 44 years old. Neurologic symptoms. TECHNIQUE: AP portable upright COMPARISON: 08/31/2019 CXR. FINDINGS: No apparent pneumothorax, acute pneumonia, pleural effusion, or edema. Mild chronic interstitial prominence left lower lung, unchanged. Cardiac silhouette, corin and mediastinal contours are not convincingly changed, with persistent moderate hilar and lower mediastinal lymphadenopathy. No acute osseous abnormality. No evidence of free air under the diaphragm. RAD/Chest 1 View IMPRESSION: No acute findings. Persistent moderate mediastinal and left hilar adenopathy. Electronically Signed: Daryl Arzola, at 7:23 EST Tel , Service support ,
--- NOTE | 2019-12-25 06:41 | CT_ITS ---
STUDY: CT BRAIN WITHOUT CONTRAST REASON FOR EXAM: Male, 44 years old. Symptoms of stroke. TECHNIQUE: Transaxial CT imaging of the brain was performed without administration of intravenous contrast material. Individualized dose optimization techniques were used for this CT. COMPARISON: MRI brain 12/16/2018 FINDINGS: No evidence of intracranial hemorrhage, mass, acute infarct, or hydrocephalus. Numerous chronic infarcts in the bilateral cerebellar hemispheres, and a small chronic lacunar infarct in the right caudate, similar to previous. Chronic microangiopathic changes in the white matter. Atherosclerosis of the intracranial arteries. No acute osseous abnormality. Visualized paranasal sinuses and mastoid air cells patent. Visualized extracranial soft tissues unremarkable. ASPECTS 07/31 CT/Brain/Head without Contrast IMPRESSION: No acute intracranial findings. N.B. : The above information has been verbally conveyed by Daryl Arzola to Brennan Garcia MD, on 12/25/2019 07:01:01 (ET). Electronically Signed: Daryl Arzola, at 7:02 EST Tel , Service support ,
--- NOTE | 2019-12-25 06:41 | EKG12_ITS ---
Test Reason : STRKE Blood Pressure : / mmHG Vent. Rate : 067 BPM Atrial Rate : 067 BPM P-R Int : 132 ms QRS Dur : 104 ms QT Int : 392 ms P-R-T Axes : 030 013 014 degrees QTc Int : 414 ms Normal sinus rhythm Normal ECG Confirmed by SOFIE BAPTISTE, DEANNE ([id number]), restaurant expeditor HEMANTH CASEY ([id number]) on 12/26/2019 8:03:46 AM Referred By: CHICHI Confirmed By:ASHLEE CARRIZALES MD
--- NOTE | 2019-12-25 06:50 | ED.VIS.GEN ---
History of Present Illness Chief Complaint: Numb/Ting Detail of Chief Complaint: Numbness and weakness Informant: Patient Onset: Today Narrative: Patient presents with his family secondary to weakness of his left leg. He states he went to bed last night at midnight and felt okay. When he woke this morning at 545 he could not move his left leg. He states it is starting to improve. He felt as if he could not feel his left leg, however when would touch his leg he could sense her touch. Patient reportedly does have history of CVA with similar symptoms in the past. He does not have significant chronic deficit. Patient has a large AVM in his chest around his heart. He has been told in the past that he may be throwing small clots from this causing stroke. He is scheduled to have surgery for this AVM in January. Patient is currently on Eliquis. - Past Medical History (1) AVM (arteriovenous malformation) Status: Chronic (2) History of recurrent TIAs Status: Chronic (3) History of stroke with residual effects Status: Chronic (4) History of vascular disorder Status: Chronic Comment: 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 (5) Hypertension Status: Chronic (6) Migraines Status: Chronic (7) Seasonal allergies Status: Chronic Past Medical History - Allergies and Home Meds Allergies/Adverse Reactions: Allergies Iodine and Iodide Containing Produc Allergy (Verified 08/31/19 15:43) Hives dust Allergy (Uncoded 08/31/19 15:43) Shortness of breath Primary Care Physician: Yoav Almanzar MD [Primary Care Provider] - Prior records reviewed: Yes Surgical History: no surgical history Lives: With Family Smoking Status: Never smoker - Family History Maternal Family History: Family History (Last Updated 12/24/18 @ 09:16 by Nelia Burgos) Mother Breast cancer Father Parkinsons Hypertension Grandfather Heart disease Myocardial infarction Grandmother Hypertension Family History: Reports: Cancer - Breast CA in mother, 50s. Maternal grandfather had heart attack when he was in his 60s. Paternal Family History: Family History (Last Updated 12/24/18 @ 09:16 by Nelia Burgos) Mother Breast cancer Father Parkinsons Hypertension Grandfather Heart disease Myocardial infarction Grandmother Hypertension Family History: Reports: Heart Disease, - - Parkinson's disease. Review of Systems General: Denies: Chills, Fever Eyes: Denies: Visual changes - bilaterally ENT: Denies: Bilateral ear pain Cardiovascular: Denies: Chest pain Respiratory: Denies: Dyspnea, Cough Gastrointestinal: Denies: Abdominal pain, Nausea, Vomiting, Diarrhea Genitourinary: Denies: Dysuria Musculoskeletal: Denies: Back pain, Extremity Pain Neurological: Reports: Weakness, Parasthesia. Denies: Headache Allergy: Denies: Uticaria Physical Exam Vital Signs/Narrative: Vital Signs Temp Pulse Resp BP Pulse Ox 12/25/19 06:32 98.2 F 77 16 150/90 H 95 Inital Vital Signs reviewed: Yes General: Well nourished, Well developed Head: Normocephalic ENT: Moist mucous membranes Neck: Supple Cardiovascular: Regular rate, Regular rhythm Respiratory: No distress, CTA bilaterally Abdomen: Soft, Nontender, Normal bowel sounds Back: Nontender Extremities: Nontender Skin: Normal color Neurological: Alert, Oriented x3, - - NIH score is 3. He received 2 points for left leg weakness. He receives one-point for paresthesias in the left side. Diagnostic/Tx/Re-eval Impressions Brain CT 12/25/19 06:41 IMPRESSION: No acute intracranial findings. N.B. : The above information has been verbally conveyed by Daryl Arzola to Brennan Garcia MD, on 12/25/2019 07:01:01 (ET). Electronically Signed: Daryl Arzola at 7:02 EST Tel , Service support , ADDENDUM: 12/25/19 0709 IMPRESSION: No acute intracranial findings. N.B. : The above information has been verbally conveyed by Daryl Arzola to Brennan Garcia MD, on 12/25/2019 07:01:01 (ET). Electronically Signed: Daryl Arzola at 7:02 EST Tel , Service support , Chest X-Ray 12/25/19 06:41 IMPRESSION: No acute findings. Persistent moderate mediastinal and left hilar adenopathy. Electronically Signed: Daryl Arzola at 7:23 EST Tel , Service support , Head/Neck CTA 12/25/19 07:28 IMPRESSION: Normal CTA Head and neck with contrast. Electronically Signed: Randy Shelby MD at 8:58 EST Tel , Service support , 12/25/19 06:41 Brain/Head without Contrast [CT] Stat Chest 1 View [RAD] Stat 12/25/19 07:28 CTA Head AND Neck W/ Contrast [CT] Stat Laboratory Results 12/25/19 12/25/19 12/25/19 06:30 06:30 06:30 WBC 6.5 RBC 4.84 Hgb 14.7 Hct 43.4 MCV 89.7 MCH 30.4 MCHC 33.9 RDW Std Deviation 37.8 RDW Coeff of Daniella 11.7 Plt Count 215 MPV 12.4 H Immature Gran % (Auto) 0.300 Neut % (Auto) 49.8 Lymph % (Auto) 36.7 Clark % (Auto) 8.9 Eos % (Auto) 3.2 Baso % (Auto) 1.1 H Absolute Neuts (auto) 3.3 Absolute Lymphs (auto) 2.40 Nucleated RBC % 0 PT 13.1 INR 1.0 APTT 30.0 Sodium 140 Potassium 3.7 Chloride 107 Carbon Dioxide 29.0 Anion Gap 4 L BUN 10 Creatinine 1.18 Estim Creat Clear Calc 94.82 Est GFR (MDRD) Af Amer 87 Est GFR (MDRD) Non-Af 72 BUN/Creatinine Ratio 8.5 L Glucose 96 Calcium 9.1 Troponin I 0.016 POC Glucose 12/25/19 06:42 WBC RBC Hgb Hct MCV MCH MCHC RDW Std Deviation RDW Coeff of Daniella Plt Count MPV Immature Gran % (Auto) Neut % (Auto) Lymph % (Auto) [place] % (Auto) Eos % (Auto) Baso % (Auto) Absolute Neuts (auto) Absolute Lymphs (auto) Nucleated RBC % PT INR APTT Sodium Potassium Chloride Carbon Dioxide Anion Gap BUN Creatinine Estim Creat Clear Calc Est GFR (MDRD) Af Amer Est GFR (MDRD) Non-Af BUN/Creatinine Ratio Glucose Calcium Troponin I POC Glucose 86 - EKG Initial EKG Interpretation: Sinus Rhythm - Sinus at 67 with no acute ischemia. - Medical Decision Making Patient was called as a stroke alert on initial evaluation. I spoke with the radiologist from [facility] on the phone. Patient is outside the window for TPA and is also on Eliquis. She advised to obtain CTAs of the head and neck. If there is no large vessel occlusion patient should be admitted for MRI. On repeat evaluation patient is regaining strength in his leg. He is now able to lift it up significantly higher than previous. It is not quite back to his normal baseline yet. Per neurology recommendations patient will be discussed with hospitalist for admission and MRI. This was discussed with the patient and his he is in agreement. ED Disposition - Plan for ED Patient: Disposition: Acute Care Hospital [facility] Diagnosis: CVA (cerebral vascular accident) Referrals: Yoav Almanzar MD [Primary Care Provider] -
[2019-12-25] MEDS: 0.9% Normal Saline 1,000 ML 100 ML IV (06:55)
[2019-12-25 06:59] LABS: Absolute Neutrophil Count 3.3 X10^3/uL (2.0-7.7); Basophil# 0.07 X10^3/uL; Basophil% 1.1 % (0-1); Eosinophil# 0.21 X10^3/uL; Eosinophils% 3.2 % (0-5); Hematocrit 43.4 % (40-54); Hemoglobin 14.7 g/dL (13.0-16.5); Lymphocyte % 36.7 % (19-41); Mean Corp Hgb Conc 33.9 g/dL (32-36); Mean Corpuscular Hgb 30.4 pg (27.0-32.0); Mean Corpuscular Volume 89.7 fL (80-94); Mean Platelet Vol. 12.4 fl (6.2-12.0); Monocyte# 0.58 X10^3/uL; Monocyte% 8.9 % (0-10); NRBC Flagged by Analyzer 0 % (0-5); Neutrophil # 3.26 X10^3/uL (2.7-7.7); Neutrophil % 49.8 % (47-70); Platelet Count 215 K/mm3 (150-450); RBC Distribution Width CV 11.7 % (11.6-14.6); RBC Distribution Width SD 37.8 fl (35.1-43.9); Red Blood Count 4.84 M/mm3 (4.6-6.2); White Blood Count 6.5 K/mm3 (4.4-11.0)
[2019-12-25 07:01] LABS: Bedside Glucose 86 mg/dL (70-110)
[2019-12-25 07:08] LABS: Prothrombin Time (Protime)PT. 13.1 SECONDS (11.7-14.9)
[2019-12-25] MEDS: MethylPREDNISolone 125 MG/2 ML Vial 60 MG IV (07:09)
[2019-12-25] MEDS: DiphenhydrAMINE 50 MG/ML Syringe 25 MG IV (07:09)
[2019-12-25 07:11] LABS: Anion Gap 4 (5-15); BUN 10 mg/dL (7-18); BUN/Creat Ratio 8.5 RATIO (10-20); Calcium,Total 9.1 mg/dL (8.5-10.1); Chloride 107 mmol/L (98-107); Creatinine, Serum 1.18 mg/dL (0.70-1.30); EST Glomerular Filtration Rate 72 mL/min (>60); Est Glom Filt Rate - Afr Amer 87 mL/min (>60); Estimated Creatinine Clearance 94.82 ml/min; Glucose 96 mg/dL (74-106); Potassium 3.7 mmol/L (3.5-5.1); Sodium Level 140 mmol/L (136-145)
--- NOTE | 2019-12-25 07:20 | ED.RN ---
0710 report given to efrain montesinos
--- NOTE | 2019-12-25 07:22 | ED.RN ---
0645 call to tele doctor.
--- NOTE | 2019-12-25 07:28 | CT_ITS ---
STUDY: CTA HEAD AND NECK WITH CONTRAST REASON FOR EXAM: Male, 44 years old. LEFT SIDED LEG WEAKNESS RADIATION DOSAGE (If Supplied By Facility): CTDIvol = ( 19.29 ) mGy, DLP = ( 743.58 ) mGycm TECHNIQUE: CT angiography was performed with a multi-detector CT scanner. Data acquisition was obtained from the skull base through the vertex following intravenous administration of ISOVUE 370 100ML. MIP images were reconstructed from the axial data set. Post-processing of the angiographic images was performed, with multiplanar reformation and 3D reconstruction. Individualized dose optimization techniques were used for this CT. COMPARISON: No relevant priors. FINDINGS: Normal bilateral petrous carotid arteries. Normal right cavernous carotid artery with a normal supraclinoid bifurcation. Normal left cavernous carotid artery with a normal supraclinoid bifurcation. Normal right A1 segments of the anterior cerebral artery. Normal left A1 segments of the anterior cerebral artery. Normal intact anterior communicating artery (ACOM). Normal bilateral A2 segments of the anterior cerebral arteries. Normal right M1 and M2 segments of the middle cerebral arteries, with a normal M1 bifurcation. Normal left M1 and M2 segments of the middle cerebral arteries, with a normal M1 bifurcation. Normal right posterior communicating artery (PCOM). Normal left posterior communicating artery (PCOM). Normal bilateral vertebral arteries. Normal basilar artery with a normal basilar bifurcation. The visualized bilateral superior cerebellar (SCA) arteries are normal. Normal bilateral P1, P2 and visualized P3 segments of the posterior cerebral arteries. There is no demonstrated aneurysm of the pala of [place]. There is no demonstrated abnormality of the visualized brain. AORTIC ARCH: Normal visualized aortic arch. Normal origins of the brachiocephalic, left common carotid, and left subclavian arteries. RIGHT CAROTID ARTERIES: Normal right common carotid artery (CCA). Normal right common carotid bulb. Normal origin of the right internal carotid (ICA) artery without a hemodynamically significant stenosis. Normal visualized cervical portion of the right internal carotid artery. Normal origin of the right external carotid artery (ECA). LEFT CAROTID ARTERIES: Normal left common carotid artery (CCA). Normal left common carotid bulb. Normal origin of the left internal carotid (ICA) artery without a hemodynamically significant stenosis. Normal visualized cervical portion of the left internal carotid artery. Normal origin of the left external carotid artery (ECA). VERTEBRAL ARTERIES: Normal bilateral vertebral arteries. CT/CTA Head AND Neck W/ Contrast IMPRESSION: Normal CTA Head and neck with contrast. Electronically Signed: Randy Shelby MD at 8:58 EST Tel , Service support ,
--- NOTE | 2019-12-25 09:12 | NURSING ---
DR PEACOCK FOR DR CADET
--- NOTE | 2019-12-25 09:22 | PCM.HP.STD ---
Problem List (1) CVA (cerebral vascular accident) Status: Acute Qualifiers: CVA mechanism: unspecified Qualified Code(s): I63.9 - Cerebral infarction, unspecified (2) AVM (arteriovenous malformation) Status: Chronic (3) Hypertension Status: Chronic Qualifiers: Hypertension type: essential hypertension Qualified Code(s): I10 - Essential (primary) hypertension (4) History of recurrent TIAs Status: Chronic History of Present Illness Date of Admission: 12/25/19 Chief Complaint: Left lower leg numbness - 6am on morning of admission The patient is a 44 year old M with past medical history of CVA with residual left-sided weakness, history of recurrent TIAs, hypertension, thoracic AVM, on Eliquis who seen with complaints of left lower extremity weakness and numbness. Patient woke up around 6 AM and realized that he could not move his left lower extremity. This persisted for couple of hours. Patient go to the ED at about 6:30 AM. This was accompanied by tingling and numbness. Stroke alert was called. Patient had initial CT of the brain which was negative for acute bleed. He underwent CT of the head and neck that did not show any clot occlusion. Patient continue to have improvement in the strength in his lower extremity as well as numbness. At the time of being seen and examined, he is able to lift his leg up. He however complains of subjective numbness in the left lower extremity. Denied any dizziness or palpitation. Patient is unsure if he has been taking all his Eliquis all the time. Vitals in the ED showed temperature of 98.2F, heart rate 77, blood pressure 150/90, respiratory rate 16, SPO2 was 95% on room air. Admitting blood work was unremarkable. Past Medical History Past Medical History (Chronic Problems): Chronic Problems (Last Updated 12/24/18 @ 09:18 by Nelia Burgos) AVM (arteriovenous malformation) (Chronic) Seasonal allergies (Chronic) Hypertension (Chronic) Concussion (Chronic) Migraines (Chronic) Esophageal/Airway AVM (Chronic) Mediastinal Hemangioma (Chronic) History of recurrent TIAs (Chronic) Hemiparesis affecting left side as late effect of cerebrovascular accident (Chronic) History of vascular disorder (Chronic) 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 History of stroke with residual effects (Chronic) Medical History: Medical History (Last Updated 12/24/18 @ 09:18 by Nelia Burgos) AVM (arteriovenous malformation) (Chronic) Q27.30 Seasonal allergies (Chronic) J30.2 Hypertension (Chronic) I10 Allergies Iodine and Iodide Containing Produc Allergy (Verified 08/31/19 15:43) Hives dust Allergy (Uncoded 08/31/19 15:43) Shortness of breath Home Medications: Ambulatory Orders Medication Instructions Recorded Apixaban [Eliquis] 5 mg PO BID #60 tablet 12/01/15 Lisinopril [Zestril] 40 mg PO DAILY 12/25/19 Metoprolol(XL)Succ [Toprol Xl 25 mg PO BID 12/25/19 (Beta Koko)] Surgical History: Surgical History (Last Updated 12/24/18 @ 09:19 by Nelia Burgos) History of heart artery stent Z95.5 11/2018 Surgical History: no surgical history Psychiatric History: Anxiety Lives: With Family Smoking Status: Never smoker Tobacco Use: Non-smoker Alcohol: None Drugs: None - *Family History Maternal Family History: Family History (Last Updated 12/24/18 @ 09:16 by Nelia Burgos) Mother Breast cancer Father Parkinsons Hypertension Grandfather Heart disease Myocardial infarction Grandmother Hypertension History Items: Cancer - Breast CA in mother, 50s. Maternal grandfather had heart attack when he was in his 60s. Paternal Family History: Family History (Last Updated 12/24/18 @ 09:16 by Nelia Burgos) Mother Breast cancer Father Parkinsons Hypertension Grandfather Heart disease Myocardial infarction Grandmother Hypertension History Items: Heart Disease, - - Parkinson's disease. Review of Systems Constitutional: Denies: Anorexia, Chills, Fever, Malaise, Weakness, Weight Change Eyes: Denies: Blurred vision, Cataracts, Conjunctivae Inflammation, Pain, Redness, Vision Change HEENT: Denies: Difficulty Hearing, Difficulty Swallowing, Head Aches, Hearing Changes, Sinus Congestion, Sinus Drainage Cardiovascular: Denies: Chest Pain, Claudication, Orthopnea, Palpitations, Paroxysmal Noc. Dyspnea Respiratory: Denies: Cough, Hemoptysis, Shortness of breath at rest, Shortness of breath upon exertion, Sputum production Gastrointestinal: Denies: Abdominal Pain, Nausea, Vomiting Genitourinary: Denies: Dysuria Musculoskeletal: Denies: Joint Pain, Joint stiffness, Joint swelling, Joint Tenderness Skin: Denies: Rash, Wounds Neurological: Reports: Focal weakness, Numbness, Tingling. Denies: Balance problems, Slurred speech, Confusion Psychiatric: Denies: Anxiety, Depression, Homicidal Ideations, Suicidal Ideations Hematologic/ Lymphatic: Denies: Easy Bruising, Easy Bleeding VTE Information - Inpt Only VTE Present on Admission: No VTE Pharm Prophylaxis ordered?: Yes Patient Problems: Active and Suspected Problems (Last Updated 12/24/18 @ 09:18 by Nelia Burgos) CVA (cerebral vascular accident) (Acute) - Physical Exam Vitals/I&O's: Vital Signs Temp Pulse Resp BP Pulse Ox 98.2 F 92 17 125/87 H 98 12/25/19 06:32 12/25/19 09:19 12/25/19 09:19 12/25/19 09:19 12/25/19 09:19 Oxygen Flow Rate (L/min) 2 Oxygen Delivery Method Nasal Cannula Weight: 100.7 kg Body Mass Index (BMI) 28.5 Finger Stick Blood Glucose 86 General: Alert, Oriented x3, Cooperative, No apparent distress HEENT: Atraumatic, PERRLA, EOMI, Normocephalic Oral: Moist Mucosa Neck: Supple Lungs: Clear to auscultation, Normal air movement Cardiovascular: Regular rate, Regular Rhythm, Normal S1, Normal S2, No murmurs Abdomen: Bowel Sounds Present, Soft, Non Tender, Non-Distended, No Hepato-splenomegaly Extremities: No edema Skin: No rashes, No breakdown Musculoskeletal: No Tenderness to Palpation of Joints or Extremities Lymphatic: No Cervical, Supraclavicular, or Inguinal Adenopathy Neurological: Cranial nerves II-XII grossly intact, Neuro grossly intact - except for decreased sensation in left LE Psych/Mental Status: Normal Affect, Appropriate Laboratory Results 12/25/19 06:30: WBC 6.5, RBC 4.84, Hgb 14.7, Hct 43.4, MCV 89.7, MCH 30.4, MCHC 33.9, RDW Std Deviation 37.8, RDW Coeff of Daniella 11.7, Plt Count 215, MPV 12.4 H, Immature Gran % (Auto) 0.300, Neut % (Auto) 49.8, Lymph % (Auto) 36.7, [place] % (Auto) 8.9, Eos % (Auto) 3.2, Baso % (Auto) 1.1 H, Absolute Neuts (auto) 3.3, Absolute Lymphs (auto) 2.40, Nucleated RBC % 0 12/25/19 06:30: PT 13.1, INR 1.0, APTT 30.0 12/25/19 06:30: Sodium 140, Potassium 3.7, Chloride 107, Carbon Dioxide 29.0, Anion Gap 4 L, BUN 10, Creatinine 1.18, Estim Creat Clear Calc 94.82, Est GFR (MDRD) Af Amer 87, Est GFR (MDRD) Non-Af 72, BUN/Creatinine Ratio 8.5 L, Glucose 96, Calcium 9.1, Troponin I 0.016 12/25/19 06:42: POC Glucose 86 Current Medications Sodium Chloride () 1,000 mls @ 100 mls/hr IV .Q10H ONE Stop: 12/25/19 16:40 Last Admin: 12/25/19 06:55 Dose: 100 mls/hr Documented by: Assessment/Plan All Active Problems (Last Updated 12/24/18 @ 09:18 by Nelia Burgos) CVA (cerebral vascular accident) (Acute) Chest pain (Acute) Abnormal cardiac enzyme level (Acute) Troponin level elevated (Acute) TIA (transient ischemic attack) (Resolved) 1. Acute onset of left lower extremity weakness likely secondary to CVA versus TIA, likely embolic Last known well to be more than 5 hours, prior to sleeping last night Symptoms appear to almost have resolved at time of admission History of CVA, recurrent TIAs, on Eliquis -patient admits to being unsure if he has been taking his medications all the time Initial CT of the head as well as CT of the head and neck was negative for acute stroke We will admit for stroke work-up, MRI of the brain, 2D echo, lipid profile, HgbA1c Will add aspirin and statin, monitor for bleeding risk 2. History of thoracic AVM, likely source of his emboli, Patient has a vascular procedure to ligate the AVM in January 2020 Continue on Eliquis 3. Hypertension, controlled, will hold blood pressure medication pending MRI results to allow for permissive hypertension 4. DVT PPx- on Apixaban Inpatient E&M: 35829 Init Hosp L3
--- NOTE | 2019-12-25 09:23 | NURSING ---
PCU ACUTE CVA PAINTSIL
--- NOTE | 2019-12-25 09:45 | MRI_ITS ---
STUDY: MRI BRAIN WITHOUT CONTRAST REASON FOR EXAM: Male, 44 years old. cva,lt sided weakness TECHNIQUE: Standardized multiplanar fat and water weighted pulse sequences were obtained. COMPARISON: CT earlier today, MR 12/16/2018 FINDINGS: Normal size of the ventricles and extra-axial spaces for the patient''s age. Normal white matter tracts of the supratentorial brain. There is no evidence for recent intracranial ischemia or other cause of cytotoxic edema on diffusion weighted imaging (DWI). Normal T2* images of the brain without demonstrated susceptibility artifact. There is no demonstrated hemosiderin stain. Chronic lacunar infarct of the right caudate nucleus. Normal thalami. There is no extra-axial fluid accumulation. Normal flow voids within the major intracranial circulation suggesting patency by spin echo criteria. Normal sella turcica, pituitary gland, infundibular stalk, optic chiasm and hypothalamus. Normal tectal plate and pineal gland. Normal midbrain, alicia and medulla. Multiple small chronic infarcts of the hemispheres and cerebellum. Normal basal cisterns. Normal bilateral temporal bones. Normal bilateral internal auditory canals. No demonstrated orbital abnormality, within the constraints of a routine brain study. There is mucoperiosteal inflammatory disease of the paranasal sinuses consistent with mild chronic sinusitis. Normal calvarium and skull base. Normal visualized soft tissue structures. Normal visualized upper cervical spine. MRI/Brain without Contrast IMPRESSION: Involutional changes of the brain, as described above. Electronically Signed: Randy Shelby MD at 17:00 EST Tel , Service support ,
--- NOTE | 2019-12-25 09:45 | ECHOD_ITS ---
Reason For Study: TIA/CVA Procedure This was a 2D Doppler, Color Flow transthoracic echocardiogram. Exam performed in department. Left Ventricle Normal LV size. The estimated ejection fraction is 60 %. Normal diastology for age. No regional wall motion abnormalities noted. Right Ventricle Normal RV size. Normal systolic function. Atria Normal left atrium. Normal right atrium. No doppler evidence for ASD. Mitral Valve There is no mitral valve stenosis. No mitral valve insufficiency. Tricuspid Valve There is no tricuspid stenosis. Unable to estimate RV systolic pressure due to inadequate jet, pulmonary artery pressure probably normal. No tricuspid valve insufficiency. Aortic Valve Trisinus/trileaflet aortic valve. There is no aortic stenosis. No aortic valve insufficiency. Pulmonic Valve There is no pulmonic valvular stenosis. No pulmonic valve insufficiency identified. Great Vessels Normal aortic root. Pericardium/Pleural No pericardial effusion. MMode/2D Measurements & Calculations LVIDd: 4.5 cm IVSd: 0.94 cm Ao root diam: 3.3 cm LVIDs: 3.0 cm LVPWd: 1.1 cm RVDd: 3.0 cm FS: 33.3 % LAV(MOD-bp): 46.0 ml LA A4 area: 16.4 cm2 LA dimension(2D): 2.8 cm LAV(MOD-bp) Indexed: 20.3 ml/m2 LAV(MOD-sp2): 44.5 ml LAV(MOD-sp4): 44.2 ml RA A4 area: 17.7 cm2 Time Measurements MV dec time: 0.22 sec Doppler Measurements & Calculations MV E max ron: 66.5 cm/sec Lat Peak E' Ron: 18.0 cm/sec Med Peak E' Ron: 13.1 cm/sec MV A max ron: 47.9 cm/sec E/E' lat: 3.7 E/E' med: 5.1 MV E/A: 1.4 Ao V2 max: 120.1 cm/sec LV V1 max: 134.7 cm/sec PA V2 max: 102.6 cm/sec Ao max P.8 mmHg LV V1 max P.3 mmHg Interpretation Summary The estimated ejection fraction is 60 %. Normal diastology for age. Ordering Physician: Cecilia Church Referring Physician: Tristen Almanzar Performed By: Katerine Harrison, RAISSA, RVT
[2019-12-25 10:34] LABS: Hemoglobin A1c 5.3 % (4.2-6.3)
[2019-12-25] MEDS: APIXABAN 5 MG TABLET PO ×2 (11:43→22:03)
--- NOTE | 2019-12-25 14:41 | CHAPLAIN ---
Type of Pastoral Visit _x__ Initial Visit ___ Follow-up Visit ___ On-call Visit ___ General Patient Visit ___ Spiritual Assessment ___ Family Conference ___ Bereavement ___ Rapid Response ___ Code Blue ___ Other (describe below) Pastoral Care Referral From _x__ Patient ___ Family ___ Nurse ___ Physician ___ Stator Connector ___ Skate Hop ___ Other (describe below) Sacrament/Intervention _x__ Active listening ___ Anointing ___ Zoroastrian ___ Bereavement ___ Communion ___ Amara exploration ___ ___ Life review _x__ Prayer ___ Reconciliation ___ Sacrament of Sick ___ Supportive presence ___ Wedding ___ Other (describe below) Pastoral Comments
[2019-12-25] MEDS: Lisinopril 40 MG Tablet PO (17:45)
[2019-12-25] MEDS: Acetaminophen 325 MG Tablet 650 MG PO (17:45)
[2019-12-25] MEDS: Metoprolol Tartrate 25 MG Tablet PO (18:47)
[2019-12-25] MEDS: Atorvastatin Calcium 40 MG Tablet PO (22:03)
[2019-12-25] MEDS: Loratadine 10 MG Tablet PO (22:33)
[2019-12-25] MEDS: DiphenhydrAMINE 25 MG Capsule PO (22:33)
[2019-12-26] VITALS (8 sets, daily range): BP systolic 112–130; BP diastolic 67–73; PULSE 61–76; RESP 15–18; TEMP 36.5–36.7; O2SAT 97–100
[2019-12-26 06:05] LABS: Absolute Lymphocyte Count 3.24 X10^3/uL (0.83-4.51); Absolute Neutrophil Count 8.4 X10^3/uL (2.0-7.7); Basophil# 0.05 X10^3/uL; Basophil% 0.4 % (0-1); Eosinophils% 0.8 % (0-5); Hematocrit 39.1 % (40-54); Hemoglobin 13.1 g/dL (13.0-16.5); Lymphocyte # 3.24 X10^3/ul (4.0); Lymphocyte % 25.2 % (19-41); Mean Corp Hgb Conc 33.5 g/dL (32-36); Mean Corpuscular Hgb 30.3 pg (27.0-32.0); Mean Corpuscular Volume 90.5 fL (80-94); Monocyte# 1.05 X10^3/uL; Monocyte% 8.2 % (0-10); NRBC Flagged by Analyzer 0 % (0-5); Neutrophil # 8.39 X10^3/uL (2.7-7.7); Platelet Count 211 K/mm3 (150-450); RBC Distribution Width CV 11.9 % (11.6-14.6); Red Blood Count 4.32 M/mm3 (4.6-6.2); White Blood Count 12.9 K/mm3 (4.4-11.0)
[2019-12-26 06:36] LABS: ALB/GLOB Ratio 0.9 RATIO (0.9-2.4); AST(SGOT) 14 U/L (15-37); Alanine Aminotransfer ALT/SGPT 24 U/L (16-61); Albumin, Serum 3.1 g/dL (3.2-5.0); Alkaline Phosphatase 58 U/L (45-117); Anion Gap 3 (5-15); BUN 16 mg/dL (7-18); BUN/Creat Ratio 16.5 RATIO (10-20); Calcium,Total 8.8 mg/dL (8.5-10.1); Chloride 112 mmol/L (98-107); Cholesterol 196 mg/dL (200); Creatinine, Serum 0.97 mg/dL (0.70-1.30); EST Glomerular Filtration Rate 90 mL/min (>60); Est Glom Filt Rate - Afr Amer 109 mL/min (>60); Estimated Creatinine Clearance 115.34 ml/min; Globulin 3.5 g/dL (2.2-4.2); Glucose 96 mg/dL (74-106); High Density Lipoprotein 42 mg/dL; Potassium 3.7 mmol/L (3.5-5.1); Protein, Total 6.6 g/dL (6.4-8.2); Sodium Level 142 mmol/L (136-145); Triglycerides 125 mg/dL; Very Low Density Lipoprotein 25 mg/dL (5-40)
[2019-12-26] MEDS: Metoprolol Tartrate 25 MG Tablet PO (08:34)
[2019-12-26] MEDS: Lisinopril 40 MG Tablet PO (08:34)
[2019-12-26] MEDS: APIXABAN 5 MG TABLET PO (08:34)
--- NOTE | 2019-12-26 09:56 | DCINST_ITS ---
- Discharge Diagnoses Current Active Problems: Current Active and Chronic Problems (Last Updated 12/24/18 @ 09:18 by Nelia Burgos TIA Reason(s) for Visit for Discharge Instructions: TIA You will use the following diet at home:: Cardiac Your food should be the consistency of: Regular Your liquids should be the consistency of: Regular/Thin Discharge Activity: Return to Normal Activity Instructions: What Is a TIA?, Transient Ischemic Attack (TIA) Additional Instructions: Continue to take all your medications as prescribed. Continue to remain active. Follow-up with your PCP. You have been referred to a neurologist. Follw-up after your procedure. Allergies/Adverse Reactions: Allergies Iodine and Iodide Containing Produc Allergy (Verified 08/31/19 15:43) Hives dust Allergy (Uncoded 08/31/19 15:43) Shortness of breath Medications to take at Discharge Apixaban [Eliquis] 5 mg PO BID #60 tablet 12/01/15 Lisinopril [Zestril] 40 mg PO DAILY 12/25/19 Metoprolol Tartrate 25 mg PO BID 12/25/19 Atorvastatin Calcium [Lipitor] 40 mg PO QHS 30 Days #30 tab 12/26/19 The following prescriptions were given: Atorvastatin Calcium [Lipitor] 40 mg PO QHS 30 Days #30 tab Transmission Status: Pending to [facility] Primary Care Physician: Yoav Almanzar MD [Primary Care Provider] - Test Results: Test results from this visit will be discussed in further detail at your follow- up appointment, if applicable. Please Follow Up With: Keesha Garcia MD When: within 2 weeks Please Follow Up With: Gideon Niño MD When: Follow-up in 4 weeks. Proposed Discharge Date: 12/26/19
--- NOTE | 2019-12-26 10:00 | DS.PCM_ITS ---
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 History of stroke with residual effects (Chronic) Hospital Course and Treatment Imaging Results: Clinical Impression(s) from Imaging Studies Brain CT 12/25/19 06:41 IMPRESSION: No acute intracranial findings. N.B. : The above information has been verbally conveyed by Daryl Arzola to Brennan Garcia MD, on 12/25/2019 07:01:01 (ET). Electronically Signed: Daryl Arzola at 7:02 EST Tel , Service support , ADDENDUM: 12/25/19 0709 IMPRESSION: No acute intracranial findings. N.B. : The above information has been verbally conveyed by Daryl Arzola to Brennan Garcia MD, on 12/25/2019 07:01:01 (ET). Electronically Signed: Daryl Arzola at 7:02 EST Tel , Service support , Chest X-Ray 12/25/19 06:41 IMPRESSION: No acute findings. Persistent moderate mediastinal and left hilar adenopathy. Electronically Signed: Daryl Arzola at 7:23 EST Tel , Service support , Head/Neck CTA 12/25/19 07:28 IMPRESSION: Normal CTA Head and neck with contrast. Electronically Signed: Randy Shelby MD at 8:58 EST Tel , Service support , Brain MRI 12/25/19 09:45 IMPRESSION: Involutional changes of the brain, as described above. Electronically Signed: Randy Shelby MD at 17:00 EST Tel , Service support , Teleneurology Operations: None Procedures: 2-D Echocardiogram Summary of Care Provided: The patient is a 44 year old M with past medical history of CVA with residual left-sided weakness in 2011, history of recurrent TIAs, thoracic aneurysm, hypertension on Eliquis who presented with complaints of left lower extremity weakness and numbness that was noticed when he woke up on the day of admission. Patient admits to may be missing some doses of his Eliquis. His symptoms had improved by time he presented. He had CT of the head and neck that was negative for occlusion. 2D echo shows normal EF, no valvular abnormalities. Patient subsequently underwent MRI of the brain that showed chronic involutional changes. Teleneurology was consulted and felt that this could be either TIA or recrudescence of prior stroke symptoms. It was counseled strongly to take all his medications and follow-up with his neurologist. He has a planned outpatient thoracic AVM ligation on January 28 and would be on a Lovenox bridge. Patient was discharged in a stable condition. He however will have outpatient modified barium swallow per speech therapy. Subjective: On the day of discharge, patient was seen and examined. Denied any new complaints. His symptoms have since resolved. Objective: Physical exam: General: Alert, Oriented x3, Cooperative, No apparent distress HEENT: Atraumatic, PERRLA, EOMI, Normocephalic Oral: Moist Mucosa Neck: Supple Lungs: Clear to auscultation, Normal air movement Cardiovascular: Regular rate, Regular Rhythm, Normal S1, Normal S2, No murmurs Abdomen: Bowel Sounds Present, Soft, Non Tender, Non-Distended, No Hepato- splenomegaly Extremities: No edema Skin: No rashes, No breakdown Musculoskeletal: No Tenderness to Palpation of Joints or Extremities Lymphatic: No Cervical, Supraclavicular, or Inguinal Adenopathy Neurological: Cranial nerves II-XII grossly intact, Neuro grossly intact - except for decreased sensation in left LE Psych/Mental Status: Normal Affect, Appropriate - Physical Exam Vitals/I&O's: Vital Signs Temp Pulse Resp BP Pulse Ox 97.7 F L 73 16 115/67 100 12/26/19 08:22 12/26/19 08:34 12/26/19 08:22 12/26/19 08:34 12/26/19 08:22 Oxygen Flow Rate (L/min) 2 Oxygen Delivery Method Nasal Cannula Weight: 98.4 kg Body Mass Index (BMI) 27.9 Finger Stick Blood Glucose 86 Intake and Output for Last 24 Hours 12/24/19 12/25/19 12/26/19 23:59 23:59 23:59 Intake Total 2037.33 / 2037.33 120 / 120 Balance 2037. / 2037. 120 / 120 Laboratory Results 12/25/19 09:58: Troponin I 0.019 12/25/19 09:58: Hemoglobin A1c 5.3 12/26/19 05:20: WBC 12.9 H, RBC 4.32 L, Hgb 13.1, Hct 39.1 L, MCV 90.5, MCH 30.3, MCHC 33.5, RDW Std Deviation 39.0, RDW Coeff of Daniella 11.9, Plt Count 211, MPV 13.0 H, Immature Gran % (Auto) 0.400, Neut % (Auto) 65.0, Lymph % (Auto) 25.2, [place] % (Auto) 8.2, Eos % (Auto) 0.8, Baso % (Auto) 0.4, Absolute Neuts (auto) 8.4 H, Absolute Lymphs (auto) 3.24, Nucleated RBC % 0 12/26/19 05:20: Sodium 142, Potassium 3.7, Chloride 112 H, Carbon Dioxide 27.0, Anion Gap 3 L, BUN 16, Creatinine 0.97, Estim Creat Clear Calc 115.34, Est GFR (MDRD) Af Amer 109, Est GFR (MDRD) Non-Af 90, BUN/Creatinine Ratio 16.5, Glucose 96, Calcium 8.8, Total Bilirubin 0.30, AST 14 L, ALT 24, Alkaline Phosphatase 58, Total Protein 6.6, Albumin 3.1 L, Globulin 3.5, Albumin/Globulin Ratio 0.9, Triglycerides 125, Cholesterol 196, LDL Cholesterol 129, VLDL Cholesterol 25, HDL Cholesterol 42 Current Medications Acetaminophen (Tylenol) 650 mg PO Q4H PRN PRN PRN Reason: Pain or Fever Last Admin: 12/25/19 17:45 Dose: 650 mg Documented by: Albuterol Sulfate (Ventolin Aerosols) 2.5 mg INHALATION Q2H PRN PRN PRN Reason: SOB/Wheezing Apixaban (Eliquis) 5 mg PO BID [facility] Last Admin: 12/26/19 08:34 Dose: 5 mg Documented by: Aspirin (Aspirin, Baby) 81 mg PO DAILY@0800 [facility] Atorvastatin Calcium (Lipitor) 40 mg PO QHS [facility] Last Admin: 12/25/19 22:03 Dose: 40 mg Documented by: Lisinopril (Zestril) 40 mg PO DAILY [facility] Last Admin: 12/26/19 08:34 Dose: 40 mg Documented by: Metoprolol Tartrate (Lopressor (Beta Koko)) 25 mg PO BID [facility] Last Admin: 12/26/19 08:34 Dose: 25 mg Documented by: Ondansetron HCl (Zofran) 4 mg IV Q8H PRN PRN PRN Reason: NAUSEA/VOMITING Sodium Chloride () 10 - 40 ml IV UD PRN PRN Reason: SALINE FLUSH Discharge Diet: Low fat/ Low Cholesterol, 2000 mg Sodium Diet Discharge Activity: Return to Normal Activity Home Medications: Medications to take at Discharge Apixaban [Eliquis] 5 mg PO BID #60 tablet 12/01/15 Lisinopril [Zestril] 40 mg PO DAILY 12/25/19 Metoprolol Tartrate 25 mg PO BID 12/25/19 Atorvastatin Calcium [Lipitor] 40 mg PO QHS 30 Days #30 tab 12/26/19 Following Prescrptions Were Given to Patient: Atorvastatin Calcium [Lipitor] 40 mg PO QHS 30 Days #30 tab Transmission Status: Received by [facility] Primary Care Physician: Yoav Almanzar MD [Primary Care Provider] - Please Follow Up With: Keesha Garcia MD When: within 2 weeks Please Follow Up With: Gideon Niño MD When: Follow-up in 4 weeks. Patient Instructions: What Is a TIA?, Transient Ischemic Attack (TIA) Disposition: Home Minutes spent on discharge:: 40 Patient Condition:: Stable Medical Necessity - Tobacco Use Smoking Status: Never smoker Tobacco Use: Non-smoker Meaningful Use Info Meaningful Use Diagnoses (Choose all that apply): None applicable OBSV E&M: 61466 Observation care discharge
--- NOTE | 2019-12-26 10:51 | CASEMGMT ---
Therapy's notes from yesterday state to consider OP therapy if pt not doing better today. This RN CM to room at this time and pt updated on therapy recommendations. Pt states no concerns with going home at time of discharge and states no need for OP therapy at this time. Speech had recommending OP MBS for pt in the future. Dr. Church aware and states will write order for pt at this time. Pt is aware and voices understanding. Pt voices no further questions/concerns/needs at this time. Atiya RN CM
== END 2019-12-26 09:51 | disposition home or self-care (01) ==
LOC: ED 09:08 → PCU 09:45
PROVIDERS: Admitting Provider Internal Medicine; Emergency Provider Emergency Medicine; PCP Family Medicine; Visit Provider Internal Medicine
DX: G45.9 Transient cerebral ischemic attack, unspecified (principal); I69.354 Hemiplegia and hemiparesis following cerebral infarction affecting left non-dominant side; I10 Essential (primary) hypertension; Q27.30 Arteriovenous malformation, site unspecified; Z79.01 Long term (current) use of anticoagulants; Z79.899 Other long term (current) drug therapy
CPT/HCPCS: 36415; 70450; 70496; 70498; 70551; 71045; 80048; 80053; 80061; 82962; 83036; 84484; 85025; 85610; 85730; 92526; 92610; 93005; 93306; 94762; 96361; 96374; 96375; 97112; 97161; 97166; 97802; 99218; 99285; Q9957; Q9967; A4216; G0378

== ENCOUNTER 2020-04-25 21:32 | Emergency (ER) | payer BC, SELFPAY ==
[2019-12-25 23:07] VITALS: BMI 27.9
[2020-04-25 21:33] VITALS: BP 142/82; PULSE 63; RESP 18; TEMP 36.5; O2SAT 96; BMI 26.9
[2020-04-25 22:26] VITALS: PULSE 72; RESP 20
[2020-04-25] MEDS: Albuterol 2.5 MG/3 ML VIAL.NEB. INHALATION (22:26)
--- NOTE | 2020-04-25 22:30 | ED.VIS.GEN ---
History of Present Illness Chief Complaint: Shortness of Breath Informant: Patient, Family Onset: Today Narrative: 85-year-old male with extensive past medical history including TIAs as well as large chest hemangioma presents with shortness of breath. States that he constantly has shortness of breath as well as dizziness. States he got acutely worse approximate 6 hours ago. States he was mowing the grass earlier in the morning. States that usually a breathing treatment resolves his symptoms. He denies any chest pain, nausea, vomiting, diaphoresis. Is due to have his surgery in approximately 2 weeks at [facility] to have this mass removed. States that it does infiltrate his esophagus as well as his bronchus. Patient is not a current smoker. Denies any drugs or alcohol. Past Medical History - Allergies and Home Meds Allergies/Adverse Reactions: Allergies Iodine and Iodide Containing Produc Allergy (Verified 08/31/19 15:43) Hives dust Allergy (Uncoded 08/31/19 15:43) Shortness of breath Primary Care Physician: Yoav Almanzar MD [Primary Care Provider] - Past Medical History: - - TIA, chest hemangioma Surgical History: no surgical history Lives: Spouse/ Significant Other Smoking Status: Never smoker Alcohol: None Drugs: None - Family History Maternal Family History: Family History (Last Updated 12/24/18 @ 09:16 by Nelia Burgos) Mother Breast cancer Father Parkinsons Hypertension Grandfather Heart disease Myocardial infarction Grandmother Hypertension Family History: Reports: Cancer - Breast CA in mother, 50s. Maternal grandfather had heart attack when he was in his 60s. Paternal Family History: Family History (Last Updated 12/24/18 @ 09:16 by Nelia Burgos) Mother Breast cancer Father Parkinsons Hypertension Grandfather Heart disease Myocardial infarction Grandmother Hypertension Family History: Reports: Heart Disease, - - Parkinson's disease. Review of Systems General: Denies: Chills, Fever, Sweats Eyes: Denies: Visual changes - bilaterally, Diplopia ENT: Denies: Rhinorrhea, Sore throat Cardiovascular: Denies: Chest pain, Palpitations Respiratory: Reports: Dyspnea. Denies: Cough, Dyspnea on exertion Gastrointestinal: Denies: Abdominal pain, Nausea, Vomiting, Diarrhea, Melena, Hematochezia Genitourinary: Denies: Dysuria, Hematuria, Frequency Musculoskeletal: Denies: Back pain, Extremity Pain Skin: Denies: Rash, Wounds Neurological: Reports: - - dizziness. Denies: Headache, Weakness, Numbness Physical Exam Vital Signs/Narrative: Vital Signs Temp Pulse Resp BP Pulse Ox 04/25/20 21:33 97.7 F L 63 18 142/82 H 96 Inital Vital Signs reviewed: Yes General: Well nourished, Well developed, No Acute Distress Head: Normocephalic, Atraumatic Eyes: Perrl, EOMI ENT: Moist mucous membranes, No rhinorrhea Neck: Supple, Nontender Cardiovascular: Regular rate, Regular rhythm, No murmurs Respiratory: No distress, CTA bilaterally, Chest nontender Abdomen: Soft, Nontender, Nondistended, Normal bowel sounds Back: Nontender, Normal Inspection Extremities: Nontender, No edema Skin: Normal color, No rash Neurological: Alert, Oriented x3, Cranial nerves II-XII grossly intact, Normal Strength, Normal Sensation Psychological: Normal affect, Normal Mood Diagnostic/Tx/Re-eval Clinical Impression(s) from Imaging Studies Brain CT 04/25/20 22:42 IMPRESSION: Normal unenhanced CT scan of the brain. Electronically Signed: Giancarlo Weaver MD at 23:42 EDT , Service support , Chest X-Ray 04/25/20 23:10 IMPRESSION: Chronic interstitial changes, no superimposed acute pulmonary process Electronically Signed: Giancarlo Weaver MD at 23:40 EDT , Service support , Laboratory Data 04/25/20 04/25/20 22:58 22:58 WBC 8.6 RBC 4.29 L Hgb 13.5 Hct 40.3 MCV 93.9 MCH 31.5 MCHC 33.5 RDW Std Deviation 41.7 RDW Coeff of Daniella 12.1 Plt Count 212 MPV 13.0 H Immature Gran % (Auto) 0.600 Neut % (Auto) 33.2 L Lymph % (Auto) 53.1 H [place] % (Auto) 9.4 Eos % (Auto) 2.8 Baso % (Auto) 0.9 Absolute Neuts (auto) 2.9 Absolute Lymphs (auto) 4.57 H Nucleated RBC % 0 Sodium 142 Potassium 3.9 Chloride 111 H Carbon Dioxide 27.0 Anion Gap 4 L BUN 14 Creatinine 1.08 Estim Creat Clear Calc 102.54 Est GFR (MDRD) Af Amer 96 Est GFR (MDRD) Non-Af 79 BUN/Creatinine Ratio 13.0 Glucose 97 Calcium 8.7 Troponin I < 0.015 - Rhythm Strip Rhythm Strip: Sinus Rhythm Rate: 68 Ectopy: None - EKG Initial EKG Interpretation: Sinus Rhythm - Sinus rhythm at 68 bpm. WA interval of 148 ms. QTC of 425 ms. No evidence of ST elevation or depression at this time. - Medical Decision Making Patient appears well nontoxic. Vital signs within normal limits. Patient initially felt like a breathing treatment would resolve his symptoms. Patient was given a single albuterol. States his this helped with the shortness of breath. States that he is still having dizziness. After extensive discussion blood work was done which is within normal limits. CT brain and chest x-ray are unchanged. After further discussion with the patient as well as his he states that meclizine is worked for him in the past for his dizziness. Patient was given this p.o. as well as prescription for this for home. Asked to return for any new or worsening symptoms. Patient asked to follow-up with his cardiothoracic surgeon. Patient agreeable and discharged home in stable condition. ED Disposition - Plan for ED Patient: Disposition: Home or Assisted Living Diagnosis: Dyspnea, Dizziness, Mediastinal Hemangioma Instructions: ED Dyspnea, ED Dizziness [facility] Prescriptions: Meclizine HCl 25 mg PO Q8H PRN PRN #12 tab.chew PRN Reason: Dizziness Transmission Status: Pending to [facility] Referrals: Yoav Almanzar MD [Primary Care Provider] -
--- NOTE | 2020-04-25 22:42 | EKG12_ITS ---
Test Reason : DYSRHYTHMIA Blood Pressure : / mmHG Vent. Rate : 068 BPM Atrial Rate : 068 BPM P-R Int : 148 ms QRS Dur : 094 ms QT Int : 400 ms P-R-T Axes : 035 012 016 degrees QTc Int : 425 ms Normal sinus rhythm Normal ECG Confirmed by MAYRA BAPTISTE, OBEY ([id number]), publishing editor HEMANTH CASEY ([id number]) on 04/27/2020 11:04:39 AM Referred By: CL Confirmed By:OBEY NUNEZ MD
--- NOTE | 2020-04-25 22:42 | CT_ITS ---
STUDY: CT BRAIN WITHOUT CONTRAST REASON FOR EXAM: Male, 45 years old. DIZZINESS, INCREASED SOB, DECREASED HEART RATE, DIZZINESS IS ALL THE TIME BUT WORSE TODAY, KNOWN MASS IN CHEST AND HE IS HAVING SURGERY IN 2 WEEKS FOR ISSUE RADIATION DOSAGE (If Supplied By Facility): CTDIvol = ( 44.99 ) mGy, DLP = ( 846.73 ) mGycm TECHNIQUE: Transaxial CT imaging of the brain was performed without administration of intravenous contrast material. Individualized dose optimization techniques were used for this CT. COMPARISON: 12/25/2019 FINDINGS: Normal soft tissue structures. Normal calvarium. Normal size ventricles and extra-axial spaces for the patient''s age. Normal white matter tracts of the cerebral hemispheres. Normal basal ganglia and thalami. Normal brainstem. Normal cerebellum. There is no intracranial hemorrhage. There are no findings of an acute ischemic infarction. Normal visualized paranasal sinuses. CT/Brain/Head without Contrast IMPRESSION: Normal unenhanced CT scan of the brain. Electronically Signed: Giancarlo Weaver MD at 23:42 EDT , Service support ,
--- NOTE | 2020-04-25 23:10 | RAD_ITS ---
STUDY: X-RAY CHEST REASON FOR EXAM: Male, 45 years old. DYSPNEA TECHNIQUE: Single AP portable view of the chest. COMPARISON: 12/25/2019 FINDINGS: EKG leads overlie the chest There are interstitial fibrotic changes of the lungs. There is no demonstrated pleural abnormality. Normal size heart. Stable prominent left perihilar region, likely adenopathy, no change. Normal visualized pulmonary arteries. Normal visualized aortic arch and descending thoracic aorta. Normal visualized thoracic spine. Normal visualized ribs, clavicles, and shoulders. There is no demonstrated abnormality of the visualized soft tissue structures of the upper abdomen. RAD/Chest 1 View (Portable) IMPRESSION: Chronic interstitial changes, no superimposed acute pulmonary process Electronically Signed: Giancarlo Weaver MD at 23:40 EDT , Service support ,
[2020-04-25 23:24] LABS: Anion Gap 4 (5-15); BUN 14 mg/dL (7-18); Calcium,Total 8.7 mg/dL (8.5-10.1); Chloride 111 mmol/L (98-107); Creatinine, Serum 1.08 mg/dL (0.70-1.30); EST Glomerular Filtration Rate 79 mL/min (>60); Est Glom Filt Rate - Afr Amer 96 mL/min (>60); Estimated Creatinine Clearance 102.54 ml/min; Glucose 97 mg/dL (74-106); Potassium 3.9 mmol/L (3.5-5.1); Sodium Level 142 mmol/L (136-145)
[2020-04-25 23:25] LABS: Absolute Lymphocyte Count 4.57 X10^3/uL (0.83-4.51); Absolute Neutrophil Count 2.9 X10^3/uL (2.0-7.7); Basophil# 0.08 X10^3/uL; Basophil% 0.9 % (0-1); Eosinophil# 0.24 X10^3/uL; Eosinophils% 2.8 % (0-5); Hematocrit 40.3 % (40-54); Hemoglobin 13.5 g/dL (13.0-16.5); Lymphocyte # 4.57 X10^3/ul (4.0); Lymphocyte % 53.1 % (19-41); Mean Corp Hgb Conc 33.5 g/dL (32-36); Mean Corpuscular Hgb 31.5 pg (27.0-32.0); Mean Corpuscular Volume 93.9 fL (80-94); Monocyte# 0.81 X10^3/uL; Monocyte% 9.4 % (0-10); NRBC Flagged by Analyzer 0 % (0-5); Neutrophil # 2.86 X10^3/uL (2.7-7.7); Neutrophil % 33.2 % (47-70); Platelet Count 212 K/mm3 (150-450); RBC Distribution Width CV 12.1 % (11.6-14.6); RBC Distribution Width SD 41.7 fl (35.1-43.9); Red Blood Count 4.29 M/mm3 (4.6-6.2); White Blood Count 8.6 K/mm3 (4.4-11.0)
[2020-04-25 23:35] VITALS: BP 146/90; PULSE 66; RESP 22; O2SAT 94
[2020-04-26] MEDS: Meclizine HCl 25 MG Tablet PO (00:16)
[2020-04-26 01:25] VITALS: BP 125/74; PULSE 60; RESP 14; O2SAT 97
== END 2020-04-26 01:29 | disposition home or self-care (01) ==
PROVIDERS: Emergency Provider Emergency Medicine; PCP Family Medicine
DX: R06.02 Shortness of breath (principal); R42 Dizziness and giddiness; D18.01 Hemangioma of skin and subcutaneous tissue; Z86.73 Personal history of transient ischemic attack (TIA), and cerebral infarction without residual deficits
CPT/HCPCS: 70450; 71045; 80048; 84484; 85025; 93005; 94640; 96360; 99284; J7030; A4216

== ENCOUNTER → 2021-04-13 12:06 | Outpatient (CLI) | payer OTHER, SELFPAY ==
--- NOTE | 2021-04-13 12:15 | RAD_ITS ---
STUDY: X-RAY CHEST REASON FOR EXAM: Male, 46 years old. BRONCHIAL IRRITATION TECHNIQUE: PA and lateral views of the chest. COMPARISON: 04/25/2020 FINDINGS: The lungs are clear and expanded. There is no demonstrated pleural abnormality. Sternal cerclage wires are present from a prior sternotomy. Borderline cardiomegaly. Normal mediastinum and corin. Normal visualized pulmonary arteries. Normal visualized aortic arch and descending thoracic aorta. Normal visualized thoracic spine. Normal visualized ribs, clavicles, and shoulders. There is no demonstrated abnormality of the visualized soft tissue structures of the upper abdomen. RAD/Chest PA and Lateral IMPRESSION: Normal x-ray examination of the chest. Electronically Signed: Pj Muniz DO at 23:00 EDT Tel , Service support ,
== END ==
PROVIDERS: PCP Family Medicine; Referring Provider Family Medicine; Visit Provider Family Medicine
DX: J40 Bronchitis, not specified as acute or chronic (principal)
CPT/HCPCS: 71046

== ENCOUNTER → 2021-09-21 | Outpatient (CLI) | payer OTHER, SELFPAY | END | disposition home or self-care (01) | LOC: LABSPEC 09-22 06:49 | PROVIDERS: PCP Family Medicine; Referring Provider Family Medicine; Visit Provider Family Medicine | DX: Z20.822 Contact with and (suspected) exposure to COVID-19 (principal) | CPT/HCPCS: 87635; U0005; U0003 ==

== ENCOUNTER 2022-01-26 06:49 | Outpatient (CLI) | payer OTHER, SELFPAY ==
--- NOTE | 2022-01-26 06:52 | CT_ITS ---
STUDY: CTA CHEST REASON FOR EXAM: Male, 46 years old. Known arterial venous malformation. Prior cauterization. RADIATION DOSAGE (If Supplied By Facility): CTDIvol = ( 21.59 ) mGy, DLP = ( 568.86 ) mGycm TECHNIQUE: The examination was performed with the intravenous administration of IV 100mL Isovue-370. Post-processing of the angiographic images was performed, with multiplanar reformation and 3D reconstruction. Individualized dose optimization techniques were used for this CT. COMPARISON: Comparison is made with prior study dated 08/24/2019. FINDINGS: Normal enhancement of the main pulmonary artery and right and left pulmonary arteries. Normal enhancement of the bilateral peripheral pulmonary arteries. There is no demonstrated pulmonary embolism. Normal thoracic aorta and visualized great vessels. There is no demonstrated aortic dissection. Normal heart and pericardium. Once again, soft tissue density are seen in the posterior mediastinum extending to the diaphragmatic hiatus. Multiple calcific densities are seen within the suggestive of possible phleboliths. The patient is known to have an anterior venous malformation and treatment. There has been no change. Normal hilar regions. Normal visualized trachea and bronchi. The lungs are well expanded. Mild degree of emphysematous changes. Normal pleura. Normal chest wall structures. Normal osseous structures. Normal visualized upper abdomen. CT/CTA Chest W/WO Contrast IMPRESSION: Stable posterior mediastinal mass known to be a large arteriovenous malformation. The patient has a history of prior cauterization with evidence of multiple calcified phleboliths within. There has been no change since prior study. Electronically Signed: Blade Styles MD at 10:08 EDT ,
[2022-01-26 07:05] LABS: CREATININE FINGERSTICK 0.8 mg/dL (0.70-1.30); EGFR FINGERSTICK > 60.0000 mL/min (>60)
== END 2022-01-26 23:59 | disposition home or self-care (01) ==
LOC: CT 06:51
PROVIDERS: PCP Family Medicine; Referring Provider Family Medicine; Visit Provider Family Medicine
DX: Q27.30 Arteriovenous malformation, site unspecified (principal)
CPT/HCPCS: 71275; Q9967

== ENCOUNTER → 2022-02-16 | Outpatient (CLI) | payer OTHER, SELFPAY ==
[2022-02-16 17:32] LABS: Absolute Lymphocyte Count 2.97 X10^3/uL (0.83-4.51); Basophil# 0.06 X10^3/uL; Basophil% 0.8 % (0-1); Eosinophil# 0.18 X10^3/uL; Eosinophils% 2.3 % (0-5); Hematocrit 45.2 % (40-54); Hemoglobin 15.3 g/dL (13.0-16.5); Lymphocyte # 2.97 X10^3/ul (0.83-4.51); Lymphocyte % 37.8 % (19-41); Mean Corp Hgb Conc 33.8 g/dL (32-36); Mean Corpuscular Hgb 29.7 pg (27.0-32.0); Mean Corpuscular Volume 87.8 fL (80-94); Mean Platelet Vol. 13.4 fl (6.2-12.0); Monocyte% 7.6 % (0-10); NRBC Flagged by Analyzer 0 % (0-5); Neutrophil # 3.98 X10^3/uL (2.7-7.7); Neutrophil % 50.7 % (47-70); Platelet Count 219 K/mm3 (150-450); RBC Distribution Width CV 11.9 % (11.6-14.6); RBC Distribution Width SD 37.8 fl (35.1-43.9); Red Blood Count 5.15 M/mm3 (4.6-6.2); White Blood Count 7.9 K/mm3 (4.4-11.0)
[2022-02-16 17:58] LABS: Erythrocyte Sedimentation Rate 10 mm/hr (0-20)
[2022-02-16 18:06] LABS: ALB/GLOB Ratio 1.1 RATIO (0.9-2.4); AST(SGOT) 19 U/L (15-37); Alanine Aminotransfer ALT/SGPT 30 U/L (16-61); Alkaline Phosphatase 82 U/L (45-117); Anion Gap 4 (5-15); BUN 9 mg/dL (7-18); BUN/Creat Ratio 8.3 RATIO (10-20); Calcium,Total 8.8 mg/dL (8.5-10.1); Chloride 105 mmol/L (98-107); Cholesterol 200 mg/dL (200); Creatinine, Serum 1.08 mg/dL (0.70-1.30); EST Glomerular Filtration Rate 79 mL/min (>60); Est Glom Filt Rate - Afr Amer 95 mL/min (>60); Ferritin 57 ng/mL (26-388); Globulin 3.6 g/dL (2.2-4.2); Glucose 90 mg/dL (74-106); High Density Lipoprotein 50 mg/dL; Iron 136 ug/dL (65-175); Potassium 3.8 mmol/L (3.5-5.1); Protein, Total 7.6 g/dL (6.4-8.2); Sodium Level 137 mmol/L (136-145); Thyroid Stim Hormone (TSH) 0.95 uIU/mL (0.358-3.74); Triglycerides 88 mg/dL; Very Low Density Lipoprotein 18 mg/dL (5-40)
[2022-02-16 18:14] LABS: Vitamin B12 404 pg/mL (211-911); Vitamin D,25 Hydroxy 11.1 ng/mL
[2022-02-20 16:03] LABS: ANTINUCLEAR ANTIBODIES DIRECT Negative (Negative)
== END | disposition home or self-care (01) ==
LOC: MFPLAB 16:28
PROVIDERS: PCP Family Medicine; Referring Provider Family Medicine; Visit Provider Family Medicine
DX: G62.9 Polyneuropathy, unspecified (principal); E78.5 Hyperlipidemia, unspecified
CPT/HCPCS: 36415; 80053; 80061; 82306; 82607; 82728; 83540; 84403; 84443; 85025; 85652; 86038; 86769

== ENCOUNTER 2022-07-17 05:27 | Day surgery (SDC) | payer OTHER, SELFPAY ==
--- NOTE | 2022-07-17 | IMM_PTH ---
PATIENT: MADHAVI MCGUIRE LOC: EN U#:[id number] AGE/SX: 47/M ROOM: RE07/17/[address]: Dr. Ran Romero DO : 1975 BED: DIS: 07/17/2022 SPEC #: [id number] RECD: 07/18/22 10:28 STATUS: OZIEL REMandy #: [id number] MICHELE: 07/17/22 00:[address]: Ran Romero DEPT: IMMUNOHISTOCHEMISTRY RECD BY: Ria Zuñiga ENTERED: 07/18/22 10:29 SP TYPE: IMMUNO OT DR: Dr. Tristen Almanzar MD Tissues: B - Esophagus, NOS Procedures: P53 (initial) KI-67 (add) PHYSICIAN & INSTITUTION [place] [id number] SPECIMEN INFORMATION: Tissue Source: B ? Distal esophagus biopsy Clinical Info: Arteriovenous malformation, dysphagia Specimen Number: [id number] CPT code: 44876, 34705 METHODOLOGY: Deparaffinized sections of prefer/formalin-fixed tissue or PAP/DQ stained slides are incubated with monoclonal/polyclonal antibodies/oligonucleotide probes. Localization is made via biotin free immunoperoxidase method. Appropriate controls are performed and reacted as expected. Results on target cell population are indicated in the following table: RESULTS: ANTIBODY / CLONE RESULT Block B P53 (DO-7) negative Ki-67 (30-9) positive These tests were developed and their performance characteristics determined by [facility]. They may not have been cleared or approved by the U.S. Food and Drug Administration. The FDA has determined that such clearance or approval is not necessary. The above immunohistochemical/dualISH markers are ordered and reviewed by the Pathologist. INTERPRETATION: B. Distal esophagus, biopsy: No evidence of dysplasia. AM:josefa 07/19/2022
[2022-07-17 06:12] VITALS: BP 148/89; PULSE 89; RESP 16; TEMP 36.4; O2SAT 99; BMI 27.7
[2022-07-17] MEDS: Lactated Ringers 1,000 ML 15 ML IV (06:15)
--- NOTE | 2022-07-17 06:30 | EGD_PTH ---
PATIENT: MADHAVI MCGUIRE LOC: [facility] U#:[id number] AGE/SX: 47/M ROOM: RE07/17/[address]: Dr. Ran Romero DO : 1975 BED: DIS: 07/17/2022 SPEC #: [id number] RECD: 07/17/22 11:06 STATUS: OZIEL LELAND #: [id number] MICHELE: 07/17/22 06:[address]: Ran Romero DEPT: SURGICAL PATHOLOGY RECD BY: Kirsten Espino ENTERED: 07/17/22 12:43 SP TYPE: EGD BIOPSY RUSLAN DR: Dr. Tristen Almanzar MD Tissues: A - Duodenum, NOS B - Esophagus, NOS C - Cecum, NOS Procedures: Special Stain Group II Surgery Specimen Level IV Alcian Blue/PAS (control) HEADER OPERATION: Colonoscopy, EGD (MAC), biopsy, polypectomy PRE-OP DIAGNOSIS: Arteriovenous malformation, dysphagia TISSUE SUBMITTED: A ? Duodenum biopsy, B ? Distal esophagus biopsy, C ? Cecal polyp MICROSCOPIC DIAGNOSIS A. 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 B. Distal esophagus, biopsy: Fragments of gastric mucosa with chronic inflammation. 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 No evidence of dysplasia. See comment. C. Cecal polyp, biopsy: Fragments of tubular adenoma. SJ:rg 07/18/2022 COMMENT B. Immunohistochemistry ([id number]) for P53 and Ki-67 will be performed and results will be reported separately. Alcian blue/PAS stain with matched control supports the above diagnosis. MICROSCOPIC DESCRIPTION Slides are reviewed. GROSS DESCRIPTION A - Received in fixative is one container labeled with the patient's name and designated duodenum biopsy. The specimen consists of multiple irregular fragments of light lopez soft tissue that in aggregate measure 0.8 x 0.3 x 0.1 cm. The specimen is totally submitted in one cassette. B - Received in fixative is one container labeled with the patient's name and designated distal esophagus biopsy. The specimen consists of multiple irregular fragments of light lopez soft tissue that in aggregate measure 1.5 x 0.5 x 0.1 cm. The specimen is totally submitted in one cassette. C - Received in fixative is one container labeled with the patient's name and designated cecal polyp. The specimen consists of multiple irregular fragments of light lopez soft tissue that in aggregate measure 1.5 x 0.3 x 0.1 cm. The specimen is totally submitted in one cassette. / SJ:rg 07/17/2022 TC:3 CPT: 15201 x3, 12082
--- NOTE | 2022-07-17 07:08 | HP.PCM_ITS ---
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 This can be with liquids or solids.? Food has not actually become stuck.? He does not choke.? He does not have heartburn or acid reflux.? No nausea or vomiting.? This dysphagia has been slowly getting worse over time.? No particular pattern that he can discern.? He did have an EGD a few years ago.? Since having the EGD he did have surgery on the AVM.? That surgery was in April 2020 at the [facility].? Occasional hemoptysis so he would like to establish with a technical sales support specialist also.? He had a CTA chest done here at [facility] on 01/26/2022: Stable posterior mediastinal mass known to be a large arteriovenous malformation.? History of prior cauterization with evidence of multiple calcified phleboliths within. Morbidities also include hypertension, hyperlipidemia, seasonal allergies, CVA, migraines, TIA ROS Const Constitutional: No fatigue ENT ENT: Positive for difficulty swallowing Gastro GI: Positive for difficulty swallowing; No abdominal pain, belching, bloating, change in bowel habits, change in stool character, coffee ground emesis, constipation, cramping, diarrhea, heartburn, feeling full early, excessive flatus, incontinent of stools, Vomiting blood/hematemesis, Blood in stool, loose stools, Black,tarry stools, nausea/dyspepsia, pain with swallowing, vomiting or other Musc Musculoskeletal: No joint pain Skin Skin: No yellowing of the eye or itchy eyes Psych Psychiatric: Positive for anxiety and No depression Endo Endocrine: No fatigue Aller/Imm Allergy/Immunologic: No itchy eyes Fernando/Lymp Hematologic/Lymphatic: No easy bleeding or easy bruising Exam Const General: cooperative, healthy appearing and comfortable Nutritional Appearance: average body habitus Resp Effort & Inspection: normal respiratory effort Quality Reporting Tobacco Screening ([facility]) Smoking Status: Never smoker Assessment and Plan Assessment and Plan (1) AVM (arteriovenous malformation): ?Status:?Chronic (2) Dysphagia: ?Status:?Acute ? ? ? Orders: Referrals Pulmonary Medicine ? Q27.30 - Arteriovenous malformation, site unspecified ? Plan 46-year-old male with posterior mediastinal AVM that may be the cause of his dysphagia, we will get him scheduled for EGD.? Case discussed with Dr. Romero, we reviewed his CTA chest.? He will be scheduled for screening colonoscopy since he turns 47 years old in 2 days.? He will have follow-up 2 weeks after his endoscopies to discuss biopsy results and findings. We will put in a referral to pulmonology because of the very large posterior mediastinal AVM, his report of intermittent hemoptysis, consideration of pulmonary hypertension. I have re-examined the patient. There are no clinical changes since date of exam.
[2022-07-17 07:10] VITALS: BP 112/70; BP 148/89; PULSE 88; RESP 16; TEMP 36.5; O2SAT 90
[2022-07-17 07:15] VITALS: BP 113/73; BP 148/89; PULSE 77; RESP 16; O2SAT 92
--- NOTE | 2022-07-17 07:16 | OP.EGD_ITS ---
Patient Name: Bradley Kovacs Procedure Date: 07/17/2022 6:24 AM Date of : 1975 Age: 47 Procedure: Upper GI endoscopy Indications: Dysphagia Providers: Ran Romero DO Medicines: Monitored Anesthesia Care Patient Profile: This is a 47 year old male. Refer to note in patient chart for documentation of history and physical. Patient has symptoms of chronic dysphagia. Complications: No immediate complications. Procedure: Pre-Anesthesia Assessment: - Prior to the procedure, a History and Physical was performed, and patient medications and allergies were reviewed. The patient is competent. The risks and benefits of the procedure and the sedation options and risks were discussed with the patient. All questions were answered and informed consent was obtained. Patient identification and proposed procedure were verified by the physician in the pre-procedure area. Mental Status Examination: alert and oriented. Airway Examination: normal oropharyngeal airway and neck mobility. Respiratory Examination: clear to auscultation. CV Examination: normal. Prophylactic Antibiotics: The patient does not require prophylactic antibiotics. Prior Anticoagulants: The patient has taken no previous anticoagulant or antiplatelet agents. ASA Grade Assessment: II - A patient with mild systemic disease. After reviewing the risks and benefits, the patient was deemed in satisfactory condition to undergo the procedure. The anesthesia plan was to use moderate sedation / analgesia (conscious sedation). Immediately prior to administration of medications, the patient was re-assessed for adequacy to receive sedatives. The heart rate, respiratory rate, oxygen saturations, blood pressure, adequacy of pulmonary ventilation, and response to care were monitored throughout the procedure. The physical status of the patient was re-assessed after the procedure. After obtaining informed consent, the endoscope was passed under direct vision. Throughout the procedure, the patient's blood pressure, pulse, and oxygen saturations were monitored continuously. The pediatric colonoscope was introduced through the mouth, and advanced to the second part of duodenum. The upper GI endoscopy was accomplished without difficulty. The patient tolerated the procedure well. Moderate Sedation: Moderate (conscious) sedation was personally administered by an anesthesia professional. The following parameters were monitored: oxygen saturation, heart rate, blood pressure, respiratory rate, EKG, adequacy of pulmonary ventilation, and response to care. Total physician intraservice time was 15 minutes. Scope In: 6:40:47 AM Scope Out: 6:50:23 AM Total Procedure Duration Time 0 hours 9 minutes 36 seconds Findings: A moderate Schatzki ring was found in the distal esophagus. A guidewire was placed and the scope was withdrawn. Dilation was performed with a Savary dilator with no resistance at 60 Fr. The dilation site was examined following endoscope reinsertion and showed moderate improvement in luminal narrowing. Estimated blood loss was minimal. Abnormal motility was noted in the middle third of the esophagus. The cricopharyngeus was normal. There is spasticity of the esophageal body. The distal esophagus/lower esophageal sphincter is spastic, but gives up passage to the endoscope. A small hiatal hernia was present. The cardia and gastric fundus were normal on retroflexion. Patchy mildly erythematous mucosa without active bleeding and with no stigmata of bleeding was found in the duodenal bulb. Biopsies were taken with a cold forceps for histology. Verification of patient identification for the specimen was done. Estimated blood loss was minimal. The Z-line was irregular and was found 40 cm from the incisors. Biopsies were taken with a cold forceps for histology. Verification of patient identification for the specimen was done. Estimated blood loss was minimal. Impression: - Moderate Schatzki ring. Dilated. - Abnormal esophageal motility. - Small hiatal hernia. - Erythematous duodenopathy. Biopsied. - Z-line irregular, 40 cm from the incisors. Biopsied. Recommendation: - Discharge patient to home. - Full liquid diet for 6 hours. - Continue present medications. - Await pathology results. Procedure Code(s): --- Professional --- 13231, Esophagogastroduodenoscopy, flexible, transoral; with insertion of guide wire followed by passage of dilator(s) through esophagus over guide wire 51904, 59,51, Esophagogastroduodenoscopy, flexible, transoral; with biopsy, single or multiple CPT copyright 2017 [employer]. All rights reserved. The codes documented in this report are preliminary and upon steam boiler fireman review may be revised to meet current compliance requirements. Ran Romero DO 07/17/2022 7:15:21 AM This report has been signed electronically. Number of Addenda: 0 Note Initiated On: 07/17/2022 6:24 AM
--- NOTE | 2022-07-17 07:16 | OP.CCLET_ITS ---
07/17/2022 Yoav Almanzar [address] [place] [address] Re : Upper GI endoscopy procedure for Bradley Youm Dear Dr. Almanzar This procedure was performed on Sunday, July 17, 2022. My impressions and recommendations are as follows: Impressions : - Moderate Schatzki ring. Dilated. - Abnormal esophageal motility. - Small hiatal hernia. - Erythematous duodenopathy. Biopsied. - Z-line irregular, 40 cm from the incisors. Biopsied. Recommendations : - Discharge patient to home. - Full liquid diet for 6 hours. - Continue present medications. - Await pathology results. My findings are described in the full procedure note, which is enclosed. If I can be of further assistance, please feel free to contact me at . Sincerely, Ran Romero, 07/17/2022 7:15:21 AM This report has been signed electronically.
--- NOTE | 2022-07-17 07:19 | OP.COLON_ITS ---
Patient Name: Bradley Kovacs Procedure Date: 07/17/2022 6:50 AM Date of : 1975 Age: 47 Procedure: Colonoscopy Indications: Screening for colorectal malignant neoplasm Providers: Ran Romero DO Medicines: Monitored Anesthesia Care Patient Profile: This is a 47 year old male. Refer to note in patient chart for documentation of history and physical. Patient has symptoms of chronic dysphagia. Last Colonoscopy: none. The patient's first colonoscopy is today. Complications: No immediate complications. Procedure: Pre-Anesthesia Assessment: - Prior to the procedure, a History and Physical was performed, and patient medications and allergies were reviewed. The patient is competent. The risks and benefits of the procedure and the sedation options and risks were discussed with the patient. All questions were answered and informed consent was obtained. Patient identification and proposed procedure were verified by the physician in the pre-procedure area. Mental Status Examination: alert and oriented. Airway Examination: normal oropharyngeal airway and neck mobility. Respiratory Examination: clear to auscultation. CV Examination: normal. Prophylactic Antibiotics: The patient does not require prophylactic antibiotics. Prior Anticoagulants: The patient has taken no previous anticoagulant or antiplatelet agents. ASA Grade Assessment: II - A patient with mild systemic disease. After reviewing the risks and benefits, the patient was deemed in satisfactory condition to undergo the procedure. The anesthesia plan was to use moderate sedation / analgesia (conscious sedation). Immediately prior to administration of medications, the patient was re-assessed for adequacy to receive sedatives. The heart rate, respiratory rate, oxygen saturations, blood pressure, adequacy of pulmonary ventilation, and response to care were monitored throughout the procedure. The physical status of the patient was re-assessed after the procedure. After I obtained informed consent, the scope was passed under direct vision. Throughout the procedure, the patient's blood pressure, pulse, and oxygen saturations were monitored continuously. The pediatric colonoscope was introduced through the anus and advanced to the cecum, identified by appendiceal orifice and ileocecal valve. The colonoscopy was performed without difficulty. The patient tolerated the procedure well. The quality of the bowel preparation was good. Scope In: 6:52:56 AM Scope Withdrawal Time 0 hours 5 minutes 17 seconds Scope Out: 7:05:58 AM Total Procedure Duration Time 0 hours 13 minutes 2 seconds Findings: Hemorrhoids were found on perianal exam. A 5 mm polyp was found in the cecum. The polyp was sessile. The polyp was removed with a hot snare. Resection and retrieval were complete. Verification of patient identification for the specimen was done. Estimated blood loss was minimal. Impression: - Hemorrhoids found on perianal exam. - One 5 mm polyp in the cecum, removed with a hot snare. Resected and retrieved. Recommendation: - Repeat colonoscopy in 5 years for surveillance. - Return to GI office. - Continue present medications. Procedure Code(s): --- Professional --- 09063, Colonoscopy, flexible; with removal of tumor(s), polyp(s), or other lesion(s) by snare technique CPT copyright 2017 [employer]. All rights reserved. The codes documented in this report are preliminary and upon manager clinical informatics review may be revised to meet current compliance requirements. Ran Romero DO 07/17/2022 7:19:12 AM This report has been signed electronically. Number of Addenda: 0 Note Initiated On: 07/17/2022 6:50 AM
[2022-07-17 07:20] VITALS: BP 101/69; BP 148/89; PULSE 73; RESP 17; O2SAT 92
--- NOTE | 2022-07-17 07:20 | OP.CCLET_ITS ---
07/17/2022 Yoav Almanzar [address] [place] [address] Re : Colonoscopy procedure for Bradley Bethanie Dear Dr. Almanzar This procedure was performed on Sunday, July 17, 2022. My impressions and recommendations are as follows: Impressions : - Hemorrhoids found on perianal exam. - One 5 mm polyp in the cecum, removed with a hot snare. Resected and retrieved. Recommendations : - Repeat colonoscopy in 5 years for surveillance. - Return to GI office. - Continue present medications. My findings are described in the full procedure note, which is enclosed. If I can be of further assistance, please feel free to contact me at . Sincerely, Ran Romero, 07/17/2022 7:19:12 AM This report has been signed electronically.
[2022-07-17 07:25] VITALS: BP 103/82; BP 148/89; PULSE 88; RESP 18; TEMP 36.6; O2SAT 89
[2022-07-17 07:41] VITALS: BP 148/89
== END 2022-07-17 07:45 | disposition home or self-care (01) ==
LOC: EN 05:28 → AC 05:29
PROVIDERS: PCP Family Medicine; Referring Provider Family Medicine; Visit Provider Internal Medicine Gastroenterology
PROC: 0DJD8ZZ Inspection of Lower Intestinal Tract, Via Natural or Artificial Opening Endoscopic (ICD-10-PCS; CPT 45378; principal; 2022-07-17 06:25)
DX: Z12.11 Encounter for screening for malignant neoplasm of colon (principal); D12.0 Benign neoplasm of cecum; K64.9 Unspecified hemorrhoids; K44.9 Diaphragmatic hernia without obstruction or gangrene; K22.2 Esophageal obstruction; K22.4 Dyskinesia of esophagus; J98.59 Other diseases of mediastinum, not elsewhere classified; I10 Essential (primary) hypertension; E78.5 Hyperlipidemia, unspecified; F41.9 Anxiety disorder, unspecified; Z79.899 Other long term (current) drug therapy; Z86.73 Personal history of transient ischemic attack (TIA), and cerebral infarction without residual deficits
CPT/HCPCS: 45385; 43248; 43239; 88305; 88313; 88341; 88342; J7120; C1769

== ENCOUNTER → 2024-02-29 | Outpatient (CLI) | payer OTHER, SELFPAY ==
[2024-02-29 10:31] LABS: Hematocrit 45.4 % (40-54); Hemoglobin 15.5 g/dL (13.0-16.5); Mean Corp Hgb Conc 34.1 g/dL (32-36); Mean Corpuscular Hgb 30.3 pg (27.0-32.0); Mean Corpuscular Volume 88.8 fL (80-94); Platelet Count 239 K/mm3 (150-450); RBC Distribution Width CV 11.9 % (11.6-14.6); RBC Distribution Width SD 38.6 fl (35.1-43.9); Red Blood Count 5.11 M/mm3 (4.6-6.2)
[2024-02-29 11:11] LABS: Vitamin D,25 Hydroxy 14.2 ng/mL
[2024-02-29 11:25] LABS: ALB/GLOB Ratio 0.9 RATIO (0.9-2.4); AST(SGOT) 15 U/L (15-37); Alanine Aminotransfer ALT/SGPT 25 U/L (16-61); Albumin, Serum 3.6 g/dL (3.2-5.0); Alkaline Phosphatase 80 U/L (45-117); Anion Gap 4 (5-15); BUN 11 mg/dL (7-18); BUN/Creat Ratio 10.7 RATIO (10-20); Calcium,Total 8.9 mg/dL (8.5-10.1); Chloride 107 mmol/L (98-107); Cholesterol 225 mg/dL (200); Creatinine, Serum 1.03 mg/dL (0.70-1.30); EST Glomerular Filtration Rate 82 mL/min (>60); Est Glom Filt Rate - Afr Amer 100 mL/min (>60); Globulin 3.8 g/dL (2.2-4.2); Glucose 105 mg/dL (74-106); High Density Lipoprotein 42 mg/dL; Protein, Total 7.4 g/dL (6.4-8.2); Sodium Level 139 mmol/L (136-145); Triglycerides 174 mg/dL; Very Low Density Lipoprotein 35 mg/dL (5-40)
== END | disposition home or self-care (01) ==
LOC: MFPLAB 09:16
PROVIDERS: PCP Family Medicine; Visit Provider Family Medicine
DX: Z00.00 Encounter for general adult medical examination without abnormal findings (principal); I63.9 Cerebral infarction, unspecified; R79.89 Other specified abnormal findings of blood chemistry; E78.5 Hyperlipidemia, unspecified
CPT/HCPCS: 36415; 80053; 80061; 82306; 85027

== ENCOUNTER 2025-03-13 10:56 | Day surgery (SDC) | payer OTHER, SELFPAY ==
--- NOTE | 2025-03-11 13:33 | PAT.ANE_ITS ---
Pre-Assessment Diagnosis/Proposed Procedure Planned Operative Procedure(s): EGD Anesthesia History Anesthesia History - french drawer: Anesthesia History - french drawer Hx Hospitalization No 03/11/25 13:28 Any Problems With Anesthesia No 03/11/25 13:28 Cholinesterase deficiency No 03/11/25 13:28 You/Your Family Experience No 03/11/25 13:28 fever (hyperthermia) with Relationship Recent Exposure to Contagious No 07/17/22 06:16 Disease Does patient have nerve No 03/11/25 13:28 stimulator Patient instructed to have device shut off --Does patient have Pacemaker or ICD? When Was Last Pacemaker Check QUESTION #4 FULL TEXT: You/Your Family Experience fever (hyperthermia) with Anesthesia Last Oral Intake Last Oral intake: Last Oral Intake NPO since Meds taken in AM with sips of water? Meds patient instructed to take am of surgery PONV PONV - french drawer: PONV - french drawer Female No 03/11/25 13:28 HX of Motion Sickness Yes 03/11/25 13:28 HX of N/V After Surgery No 03/11/25 13:28 Non-Smoker Yes 03/11/25 13:28 Duration of Surgery greater No 03/11/25 13:28 than 60 minutes Number of Risk Factors 2 03/11/25 13:28 PONV Score Moderate Risk 03/11/25 13:28 Height & Weight Height & Weight: Anesthesia: Height & Weight Height 6 ft 1 in 02/29/24 08:48 Respiratory Assessment Respiratory Assessment - french drawer: Respiratory Tract Infection Hx - french drawer Hx Respiratory Tract Infection No 03/11/25 13:28 STOP Sleep Apnea STOP Sleep Apnea - french drawer: STOP Sleep Apnea - french drawer Hx Hypertension Yes: PER PT, CONTROLLED ON 03/11/25 13:28 MEDS Hx Sleep Apnea Yes 03/11/25 13:28 CPAP No: no machine at this time, 03/11/25 13:28 working w/ Dr for alternative therapy BIPAP No 03/11/25 13:28 Do you snore loudly (louder than talking or can be heard Do you often feel tired/ fatigued/ sleepy during daytime? Has anyone observed you stop breathing during sleep? STOP Results Positive 03/11/25 13:28 QUESTION #5 FULL TEXT : Do you snore loudly (louder than talking or can be heard through closed doors)? Tobacco Use History Tobacco Use History - french drawer: Tobacco Use History - french drawer Tobacco Use Smoking Status Never smoker 03/11/25 13:28 Hx Tobacco Use No 03/11/25 13:28 Years Smoking Packs Smoked per Day Smoking Cessation Date was within the last 15 years Hx Smoking Cessation Date Hx Smoking Cessation No 03/11/25 13:28 Counseling Hematologic Medial History Hematologic Hx - french drawer: Hematologic Medical Hx - claim professional Hx of Blood Transfusion No 03/11/25 13:28 Hx of Transfusion in last 3 No 03/11/25 13:28 Months Date of Last Transfusion (if within last 3 months) Ever experience any problems No 03/11/25 13:28 with transfusion(s)? Specify any problems Hx of Preganancy in last 3 N/A 03/11/25 13:28 Months Nurse Filling Out Transfusion VCHRISTIN 03/11/25 13:28 & Questions: Date: 03/11/25 03/11/25 13:28 Time: 13:29 03/11/25 13:28 Patient unable to answer at this time (ie. confused, unrespo /Reproduction History /Reproductive History - french drawer: /Reproductive Hx- french drawer Hx Now No 03/11/25 13:28 Gestational Age (in weeks): EDC: Hx Hx Para Hx Section SAB No 03/11/25 13:28 PFSH Medical History (Updated 03/11/25 @ 13:28 by Justine Worrell) Stroke/cerebrovascular accident Wears glasses Anxiety Migraine headache TIA (transient ischemic attack) Gastric reflux Sleep apnea Non-smoker Shortness of breath on exertion History of echocardiogram History of stress test Hyperlipidemia Dysphagia AVM (arteriovenous malformation) Seasonal allergies Hypertension Home Medications ?Medication ?Instructions ?Recorded ?Last Taken ?Type meclizine 25 mg chewable tablet 25 mg PO Q8H PRN PRN D izziness ##12 04/26/20 Unknown Rx ondansetron HCl 4 mg tablet 4 mg PO Q8H PRN Nausea 01/10 Unknown History albuterol sulfate 90 mcg/actuation 2 inh inhalation Q4 H PRN PRN asthma 07/12/22 Unknown History aerosol inhaler atorvastatin 20 mg tablet 40 mg PO DAILY 10/24/24 Unkn own History lisinopril 20 mg tablet 40 mg PO QDAY 10/24/24 Unkno wn History budesonide-formoterol HFA 160 2 inh inhalation BID PRN SOB 03/11/25 Unknown History mcg-4.5 mcg/actuation aerosol inhaler (Symbicort) omeprazole 20 mg capsule,delayed 20 mg PO QDAY PRN DILSHAD D 03/11/25 Unknown History release triamcinolone acetonide 55 mcg 1 spray intranasal ÁLVARO Y 03/11/25 Unknown History nasal spray aerosol (24 Hour Nasal Allergy) Allergy/AdvReac Type Severity Reaction Status Date / Time Environmental Allergies: Allergy Shortness Verified 03/11/25 13:22 Uncoded (dust) of breath Iodine and Iodide Containing Allergy Hives Verified 03/11/25 13:22 Produc Family History Mother Breast cancer Father Parkinsons Hypertension Grandfather Heart disease Myocardial infarction Grandmother Hypertension Surgical History (Updated 03/11/25 @ 13:28 by Justine Worrell) Hx of colonoscopy History of thoracic surgery History of bronchoscopy History of esophagogastroduodenoscopy (EGD) History of heart artery stent Social History Smoking Status: Never smoker alcohol intake: never substance use type: does not use what type of physical activity do you participate in: other details: susanna- francois frequency: 3-4 times per week Audit: Pertinent Findings Pertinent Findings EKG Perinent findings: 04/25/2020. Normal sinus rhythm 60 bpm. Normal EKG. Stress test pertinent findings: 12/13/2018. Negative. Echo (EF%) pertinent findings: 12/25/2019. EF 60%. Recommendation Anesthesia Recommendation Anesthesia recommendation: OPTIMIZED for anesthesia
[2025-03-13] VITALS (7 sets, daily range): BP systolic 127–140; BP diastolic 89–95; PULSE 77–94; RESP 16; TEMP 36.2–36.4; O2SAT 95–99; BMI 27.6
[2025-03-13] MEDS: Lactated Ringers 1,000 ML 15 ML IV (11:29)
--- NOTE | 2025-03-13 11:36 | PCM.PRE.AN2 ---
ASA Classification* ASA Classification ASA Classification: 2 Assessment & Plan Anesthesia* Anesthesia Assessment Anesthesia Assessment: Discussed sedation and/or anesthesia options, risks, benefits, and alternatives with patient/parents/legal guardian/POA. Questions invited. The patient/parents/legal guardian/POA seems to understand and agrees to proceed with anesthesia plan. Reviewed the physical assessment, medical history, allergy history and patient home medications list prior to surgery/procedure/anesthetic and documented any changes. Performed airway and anesthesia risk assessments. Anesthesia Type Anesthesia Type: MAC Anesthesia Focused Assessment* Temperature: 97.6 F Pulse Rate: 79 Blood Pressure: 140/93 Respiratory Rate: 16 Pulse Ox: 99 Airway Assessment Mouth opens: >3 cm Mallampati Score: II Focused Labs Anesthesia Preop lab: CBC WBC 7.0 K/mm3 (4.4-11.0) 02/29/24 09:02/29/24 RBC 5.11 M/mm3 (4.6-6.2) 02/29/24 09:02/29/24 Hgb 15.5 g/dL (13.0-16.5) 02/29/24 09:02/29/24 Hct 45.4 % (40-54) 02/29/24 09:02/29/24 Plt Count 239 K/mm3 (150-450) 02/29/24 09:02/29/24 CHEMISTRY Potassium 4.0 mmol/L (3.5-5.1) 02/29/24 09:02/29/24 Sodium 139 mmol/L (136-145) 02/29/24 09:02/29/24 Magnesium 1.8 mg/dL (1.8-2.4) 01/19/15 22:00 01/19/15 BUN 11 mg/dL (7-18) 02/29/24 09:02/29/24 Creatinine 1.03 mg/dL (0.70-1.30) 02/29/24 09:02/29/24 Glucose 105 mg/dL (74-106) 02/29/24 09:02/29/24 POC Glucose 86 mg/dL (70-110) 12/25/19 06:42 12/25/19 TSH 0.95 uIU/mL (0.358-3.74) 02/16/22 16:35 02/16/22 COAG PT 13.1 SECONDS (11.7-14.9) 12/25/19 06:30 12/25/19 Pre-Assessment Diagnosis/Proposed Procedure Planned Operative Procedure(s): EGD Anesthesia History 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 When Was Last Pacemaker Check QUESTION #4 FULL TEXT: You/Your Family Experience fever (hyperthermia) with Anesthesia Last Oral Intake Last Oral intake: Last Oral Intake NPO since 00:00 03/13/25 11:24 Meds taken in AM with sips of water? Meds patient instructed to take am of surgery PONV PONV - software computer specialist: PONV - software computer specialist Female No 03/11/25 13:28 HX of Motion Sickness Yes 03/11/25 13:28 HX of N/V After Surgery No 03/11/25 13:28 Non-Smoker Yes 03/11/25 13:28 Duration of Surgery greater No 03/11/25 13:28 than 60 minutes Number of Risk Factors 2 03/11/25 13:28 PONV Score Moderate Risk 03/11/25 13:28 Height & Weight Height & Weight: Anesthesia: Height & Weight Height 6 ft 2 in 03/13/25 11:24 Weight: 97.6 kg 03/13/25 11:24 Body Mass Index (BMI) 27.6 03/13/25 11:24 Respiratory Assessment Respiratory Assessment - software computer specialist: Respiratory Tract Infection Hx - software computer specialist Hx Respiratory Tract Infection No 03/11/25 13:28 STOP Sleep Apnea STOP Sleep Apnea - software computer specialist: STOP Sleep Apnea - software computer specialist Hx Hypertension Yes: PER PT, CONTROLLED ON 03/11/25 13:28 MEDS Hx Sleep Apnea Yes 03/11/25 13:28 CPAP No: no machine at this time, 03/11/25 13:28 working w/ for alternative therapy BIPAP No 03/11/25 13:28 Do you snore loudly (louder than talking or can be heard Do you often feel tired/ fatigued/ sleepy during daytime? Has anyone observed you stop breathing during sleep? STOP Results Positive 03/11/25 13:28 QUESTION #5 FULL TEXT : Do you snore loudly (louder than talking or can be heard through closed doors)? Tobacco Use History Tobacco Use History - software computer specialist: Tobacco Use History - software computer specialist Tobacco Use Smoking Status Never smoker 03/11/25 13:28 Hx Tobacco Use No 03/11/25 13:28 Years Smoking Packs Smoked per Day Smoking Cessation Date was within the last 15 years Hx Smoking Cessation Date Hx Smoking Cessation No 03/11/25 13:28 Counseling Hematologic Medial History Hematologic Hx - software computer specialist: Hematologic Medical Hx - mortgage consultant Hx of Blood Transfusion No 03/11/25 13:28 Hx of Transfusion in last 3 No 03/11/25 13:28 Months Date of Last Transfusion (if within last 3 months) Ever experience any problems No 03/11/25 13:28 with transfusion(s)? Specify any problems Hx of Preganancy in last 3 N/A 03/11/25 13:28 Months Nurse Filling Out Transfusion VCHRISTIN 03/11/25 13:28 & Questions: Date: 03/11/25 03/11/25 13:28 Time: 13:29 03/11/25 13:28 Patient unable to answer at this time (ie. confused, unrespo /Reproduction History /Reproductive History - software computer specialist: /Reproductive Hx- software computer specialist Hx Now No 03/11/25 13:28 Gestational Age (in weeks): EDC: Hx Hx Para Hx Section SAB No 03/11/25 13:28 Active Medications Active Medications: Current Medications Generic Name Dose Route Start Last Admin Trade Name Freq PRN Reason Stop Dose Admin Lactated Ringer's 1,000 mls @ 15 mls/hr 03/13/25 11:15 03/13/25 11:29 IV 15 mls/hr .Q48H FARHAT Administration PFSH Medical History Stroke/cerebrovascular accident Wears glasses Anxiety Migraine headache TIA (transient ischemic attack) Gastric reflux Sleep apnea Non-smoker Shortness of breath on exertion History of echocardiogram History of stress test Hyperlipidemia Dysphagia AVM (arteriovenous malformation) Seasonal allergies Hypertension Home Medications ?Medication ?Instructions ?Recorded ?Last Taken ?Type meclizine 25 mg chewable tablet 25 mg PO Q8H PRN PRN Dizziness ##12 04/26/20 Unknown Rx ondansetron HCl 4 mg tablet 4 mg PO Q8H PRN Nausea 02/21/22 Unknown History albuterol sulfate 90 mcg/actuation 2 inh inhalation Q4H PRN PRN asthma 07/12/22 Unknown History aerosol inhaler atorvastatin 20 mg tablet 40 mg PO DAILY 10/24/24 Unknown History lisinopril 20 mg tablet 40 mg PO QDAY 10/24/24 Unknown History budesonide-formoterol HFA 160 2 inh inhalation BID PRN SOB 03/11/25 Unknown History mcg-4.5 mcg/actuation aerosol inhaler (Symbicort) omeprazole 20 mg capsule,delayed 20 mg PO QDAY PRN GERD 03/11/25 Unknown History release triamcinolone acetonide 55 mcg 1 spray intranasal DAILY 03/11/25 Unknown History nasal spray aerosol (24 Hour Nasal Allergy) Allergy/AdvReac Type Severity Reaction Status Date / Time Environmental Allergies: Allergy Shortness Verified 03/13/25 11:24 Uncoded (dust) of breath Iodine and Iodide Containing Allergy Hives Verified 03/13/25 11:24 Produc Family History Mother Breast cancer Father Parkinsons Hypertension Grandfather Heart disease Myocardial infarction Grandmother Hypertension Surgical History Hx of colonoscopy History of thoracic surgery History of bronchoscopy History of esophagogastroduodenoscopy (EGD) History of heart artery stent Social History Smoking Status: Never smoker alcohol intake: never substance use type: does not use what type of physical activity do you participate in: other details: susanna-francois frequency: 3-4 times per week Review of Systems (Anesthesia) ROS Narrative System reviewed and no additional complaints, except as documented.
--- NOTE | 2025-03-13 12:00 | HP.PCM_ITS ---
HPI - General General Date of Admission: 03/13/25 Date of Service: 03/13/25 Chief Complaint: lomeli's esophagus [facility] Narrative MADHAVI MCGUIRE, is a 49 M who presents for surveillance of Lomeli's esophagus [facility] established 04.10.22 for dysphagia. 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 EGD performed at [facility] several years prior with subsequent AV malformation surgery. These records are unavailable. EGD and colonoscopy 07.17.22. EGD found irregular Zline 40cm, Lomeli?s esophagus Ki-67 +; moderate Schatzki ring, Savary dilator to 60F; abnormal esophageal motility; small hiatal hernia; erythematous duodenopathy, Bertrand gland hyperplasia. Colonoscopy found perianal hemorrhoids and one 5mm TA polyp in cecum. OV .01.13 Pt has been doing well since last visit in 2021. He was referred back to us by his PCP for monitoring of his Lomeli esophagus. He is having some swallowing trouble very intermittently. He is not having any heartburn and is not on PPI therapy. [facility] Medical History Stroke/cerebrovascular accident Wears glasses Anxiety Migraine headache TIA (transient ischemic attack) Gastric reflux Sleep apnea Non-smoker Shortness of breath on exertion History of echocardiogram History of stress test Hyperlipidemia Dysphagia AVM (arteriovenous malformation) Seasonal allergies Hypertension Home Medications ?Medication ?Instructions ?Recorded ?Last Taken ?Type meclizine 25 mg chewable tablet 25 mg PO Q8H PRN PRN D izziness ##12 04/26/20 Unknown Rx ondansetron HCl 4 mg tablet 4 mg PO Q8H PRN Nausea 01/10 Unknown History albuterol sulfate 90 mcg/actuation 2 inh inhalation Q4 H PRN PRN asthma 07/12/22 Unknown History aerosol inhaler atorvastatin 20 mg tablet 40 mg PO DAILY 10/24/24 Unkn own History lisinopril 20 mg tablet 40 mg PO QDAY 10/24/24 Unkno wn History budesonide-formoterol HFA 160 2 inh inhalation BID PRN SOB 03/11/25 Unknown History mcg-4.5 mcg/actuation aerosol inhaler (Symbicort) omeprazole 20 mg capsule,delayed 20 mg PO QDAY PRN DILSHAD D 03/11/25 Unknown History release triamcinolone acetonide 55 mcg 1 spray intranasal ÁLVARO Y 03/11/25 Unknown History nasal spray aerosol (24 Hour Nasal Allergy) Allergy/AdvReac Type Severity Reaction Status Date / Time Environmental Allergies: Allergy Shortness Verified 03/13/25 11:24 Uncoded (dust) of breath Iodine and Iodide Containing Allergy Hives Verified 03/13/25 11:24 Produc Family History Mother Breast cancer Father Parkinsons Hypertension Grandfather Heart disease Myocardial infarction Grandmother Hypertension Surgical History Hx of colonoscopy History of thoracic surgery History of bronchoscopy History of esophagogastroduodenoscopy (EGD) History of heart artery stent Social History Smoking Status: Never smoker alcohol intake: never substance use type: does not use what type of physical activity do you participate in: other details: ssuannaNourish richmondGynesonics frequency: 3-4 times per week ROS Constitutional Constitutional: Denies fatigue, fever(s), poor appetite, weight gain or weight loss Gastrointestinal Gastrointestinal: Denies belching, bloating, change in bowel habits, change in stool character, chewing difficulty, coffee ground emesis, constipation, cramping, diarrhea, dyspepsia, dysphagia, early satiety, excessive flatus, fecal incontinence, heartburn, hematemesis, hematochezia, hemorrhoids, loose stools, melena, nausea, odynophagia, rectal bleeding, tenesmus, vomiting or weight changes Vital Signs Vital Signs Vital Signs: 03/13/25 11:24 03/13/25 11:24 03/13/25 11:37 Temperature 97.6 F L 97.6 F L Temperature Source Temporal Pulse Rate 79 79 Respiratory Rate 16 16 Respiratory Pattern Normal Blood Pressure 140/93 H 140/93 H Blood Pressure Mean 108 Blood Pressure Source Monitor Blood Pressure Position Semi-Fowlers Blood Pressure Location Right Arm Pulse Ox 99 99 Oxygen Delivery Method Room Air Weight Weight: 215 lb 2.738 oz Body Mass Index (BMI) 27.6 Physical Exam Const alert, oriented x3, no apparent distress and healthy appearing General Appearance: cooperative GI normal to inspection, nondistended, normoactive bowel sounds, soft to palpation, non-tender and non-distended Percussion: normal to percussion Rectal Exam: deferred Assessment & Plan Assessment/Plan (1) Barretts esophagus: PLAN: Assessment and Plan Assessment and Plan (1) Barretts esophagus: Status: Chronic Plan: This is a 49 yo male pt here today for f/u. Pt was diagnosed with lomeli esoph blas in [address] Romero. He is here today for monitoring. He has not been on PPI therapy. I prescribed him omeprazole 20 mg daily. He will be scheduled for repeat EGD. He has no further concerns. -Omeprazole 20 mg daily -EGD -f/u as needed (2) Schatzki's ring: Status: Chronic Medications: New omeprazole 20 mg PO QDAY 90 caps 2RF
--- NOTE | 2025-03-13 12:00 | EGD_PTH ---
PATIENT: MADHAVI MCGUIRE LOC: EN U#:[id number] AGE/SX: 49/M ROOM: RE03/13/[address]: Dr. Ran Romero DO : 1975 BED: DIS: 03/13/2025 SPEC #: [id number] RECD: 03/13/25 13:12 STATUS: OZIEL LELAND #: [id number] MICHELE: 03/13/25 12:[address]: Ran Romero DEPT: SURGICAL PATHOLOGY RECD BY: Rubén Strauss ENTERED: 03/13/25 13:19 SP TYPE: EGD BIOPSY RUSLAN DR: Dr. Tristen Almanzar MD Tissues: A - Esophagus, NOS Procedures: Surgery Specimen Level IV HEADER OPERATION: EGD PRE-OP DIAGNOSIS: Pulido's esophagus TISSUE SUBMITTED: A- Distal esophagus biopsy MICROSCOPIC DIAGNOSIS A. Esophagus, distal, biopsy: Squamous mucosa with reactive changes. Columnar mucosa with goblet cell metaplasia - see note. Negative for dysplasia. Note: The diagnosis depends on the location of the biopsy and the extent of the mucosal irregularity. If the biopsy originates from the tubular esophagus and the mucosal irregularity extends at least 1 cm above the top of the gastric folds, this represents Pulido mucosa. If the biopsy originates from the gastric cardia and/or the mucosal irregularity is less than 1 cm in extent, this represents intestinal metaplasia. MICROSCOPIC DESCRIPTION Slides are reviewed. GROSS DESCRIPTION A. Received in formalin in a container labeled with the patient's name, date of , and distal esophagus are multiple lopez-pink fragments of mucosal tissue measuring 0.7 x 0.6 x 0.3 cm in aggregate. Submitted in toto in A1. [facility] 03-13-2025 CPT:03710
--- NOTE | 2025-03-13 12:35 | PCM.POST.ANE ---
Anesthesia: Postop Eval I Current Vital Signs Temperature: 97.2 F Pulse Rate: 94 Blood Pressure: 130/94 Respiratory Rate: 16 Pulse Ox: 96 Oxygen Delivery Method: Room Air Assessment Airway patent: Yes Spontaneous unlabored respirations: Yes Mental status: Awake nausea: No Vomiting: No Anesthesia Complication: No Fluid Hydration Crystalloid volume administer (ml): 300 Total IV fluid infused: 300 Progress Note Anesthesia document: Postop Eval 1 completed: Yes
--- NOTE | 2025-03-13 12:37 | OP.EGD_ITS ---
Patient Name: Bradley Kovacs Procedure Date: 03/13/2025 12:19 PM Date of : 1975 Age: 49 Procedure: Upper GI endoscopy Indications: Heartburn, Follow-up of Pulido's esophagus Providers: Ran Romero DO Medicines: Monitored Anesthesia Care Patient Profile: This is a 49 year old male. Refer to note in patient chart for documentation of history and physical. Patient has symptoms of chronic heartburn. His most recent EGD for Pulido's biopsy. Complications: No immediate complications. Procedure: Pre-Anesthesia Assessment: - Prior to the procedure, a History and Physical was performed, and patient medications and allergies were reviewed. The patient is competent. The risks and benefits of the procedure and the sedation options and risks were discussed with the patient. All questions were answered and informed consent was obtained. Patient identification and proposed procedure were verified by the physician in the pre-procedure area. Mental Status Examination: alert and oriented. Airway Examination: normal oropharyngeal airway and neck mobility. Respiratory Examination: clear to auscultation. CV Examination: normal. Prophylactic Antibiotics: The patient does not require prophylactic antibiotics. Prior Anticoagulants: The patient has taken no anticoagulant or antiplatelet agents except for NSAID medication. ASA Grade Assessment: II - A patient with mild systemic disease. After reviewing the risks and benefits, the patient was deemed in satisfactory condition to undergo the procedure. The anesthesia plan was to use monitored anesthesia care (MAC). Immediately prior to administration of medications, the patient was re-assessed for adequacy to receive sedatives. The heart rate, respiratory rate, oxygen saturations, blood pressure, adequacy of pulmonary ventilation, and response to care were monitored throughout the procedure. The physical status of the patient was re-assessed after the procedure. After obtaining informed consent, the endoscope was passed under direct vision. Throughout the procedure, the patient's blood pressure, pulse, and oxygen saturations were monitored continuously. The Endoscope was introduced through the mouth, and advanced to the second part of duodenum. The upper GI endoscopy was accomplished without difficulty. The patient tolerated the procedure well. Scope In: 12:30:18 PM Scope Out: 12:32:58 PM Total Procedure Duration Time 0 hours 2 minutes 40 seconds Findings: The Z-line was irregular and was found 39 cm from the incisors. Biopsies were taken with a cold forceps for histology. Verification of patient identification for the specimen was done. Estimated blood loss was minimal. No gross lesions were noted in the entire examined stomach. No gross lesions were noted in the entire examined duodenum. Impression: - Z-line irregular, 39 cm from the incisors. Biopsied. - No gross lesions in the entire stomach. - No gross lesions in the entire examined duodenum. Recommendation: - Discharge patient to home. - Resume previous diet. - Continue present medications. - Await pathology results. Procedure Code(s): --- Professional --- 31302, Esophagogastroduodenoscopy, flexible, transoral; with biopsy, single or multiple CPT copyright 2021 [employer]. All rights reserved. The codes documented in this report are preliminary and upon material distributor review may be revised to meet current compliance requirements. Ran Romero DO 03/13/2025 12:37:01 PM This report has been signed electronically. Number of Addenda: 0 Note Initiated On: 03/13/2025 12:19 PM
--- NOTE | 2025-03-13 12:37 | OP.CCLET_ITS ---
03/13/2025 Yoav Almanzar [address] [place] [address] Re : Upper GI endoscopy procedure for Bradley Kovacs Dear Dr. Almanzar This procedure was performed on Thursday, March 13, 2025. My impressions and recommendations are as follows: Impressions : - Z-line irregular, 39 cm from the incisors. Biopsied. - No gross lesions in the entire stomach. - No gross lesions in the entire examined duodenum. Recommendations : - Discharge patient to home. - Resume previous diet. - Continue present medications. - Await pathology results. My findings are described in the full procedure note, which is enclosed. If I can be of further assistance, please feel free to contact me at . Sincerely, Ran Romero, 03/13/2025 12:37:01 PM This report has been signed electronically.
--- NOTE | 2025-03-13 12:56 | POSTOPAN2_ITS ---
Anesthesia Postop Eval I Sum Postop Eval Completion status Anesthesia document: Postop Eval 1 completed: Yes Anesthesia Postop Eval I Summary Anesthesia Postop Eval I Summary: Anesthesia Postop Eval I: Assessment Summary Airway patent Yes 03/13/25 12:40 MAINTENANCE MACHINE REPAIRER.SOBR Spontaneous unlabored Yes 03/13/25 12:40 MAINTENANCE MACHINE REPAIRER.SOBR respirations Mental status Awake 03/13/25 12:40 MAINTENANCE MACHINE REPAIRER.SOBR nausea No 03/13/25 12:40 MAINTENANCE MACHINE REPAIRER.SOBR Vomiting No 03/13/25 12:40 MAINTENANCE MACHINE REPAIRER.SOBR Anesthesia Postop Eval I: Fluid Summary Crystalloid volume administer 300 03/13/25 12:40 MAINTENANCE MACHINE REPAIRER.SOBR (ml) Colloids volume administered ( ml) Blood Product volume administered (ml) Total IV fluid infused 300 03/13/25 12:40 MAINTENANCE MACHINE REPAIRER.SOBR Anesthesia Postop Eval I: Summary Notes Anesthesia Complication No 03/13/25 12:40 MAINTENANCE MACHINE REPAIRER.SOBR Anesthesia Complication Comment: Post-operative progress note Anesthesia: Postop Eval II Evaluation Mental status: Awake Pain Level: 0 nausea: No Vomiting: No
--- NOTE | 2025-03-13 12:56 | PCM.POSTANE2 ---
Anesthesia Postop Eval I Sum Postop Eval Completion status Anesthesia document: Postop Eval 1 completed: Yes Anesthesia Postop Eval I Summary Anesthesia Postop Eval I Summary: Anesthesia Postop Eval I: Assessment Summary Airway patent Yes 03/13/25 12:40 GARDEN CENTER MANAGER.SOBR Spontaneous unlabored Yes 03/13/25 12:40 GARDEN CENTER MANAGER.SOBR respirations Mental status Awake 03/13/25 12:40 GARDEN CENTER MANAGER.SOBR nausea No 03/13/25 12:40 GARDEN CENTER MANAGER.SOBR Vomiting No 03/13/25 12:40 GARDEN CENTER MANAGER.SOBR Anesthesia Postop Eval I: Fluid Summary Crystalloid volume administer 300 03/13/25 12:40 GARDEN CENTER MANAGER.SOBR (ml) Colloids volume administered ( ml) Blood Product volume administered (ml) Total IV fluid infused 300 03/13/25 12:40 GARDEN CENTER MANAGER.SOBR Anesthesia Postop Eval I: Summary Notes Anesthesia Complication No 03/13/25 12:40 GARDEN CENTER MANAGER.SOBR Anesthesia Complication Comment: Post-operative progress note Anesthesia: Postop Eval II Evaluation Mental status: Awake Pain Level: 0 nausea: No Vomiting: No
== END 2025-03-13 13:27 | disposition home or self-care (01) ==
LOC: EN 10:58 → AC 11:03
PROVIDERS: PCP Family Medicine; Referring Provider Family Medicine; Visit Provider Internal Medicine Gastroenterology
PROC: 0DJ08ZZ Inspection of Upper Intestinal Tract, Via Natural or Artificial Opening Endoscopic (ICD-10-PCS; CPT 43235; principal; 2025-03-13 11:55)
DX: K22.70 Barrett's esophagus without dysplasia (principal); I10 Essential (primary) hypertension; E78.5 Hyperlipidemia, unspecified; R13.10 Dysphagia, unspecified; G47.30 Sleep apnea, unspecified; Z79.51 Long term (current) use of inhaled steroids; Z79.899 Other long term (current) drug therapy; Z86.73 Personal history of transient ischemic attack (TIA), and cerebral infarction without residual deficits; Z95.5 Presence of coronary angioplasty implant and graft
CPT/HCPCS: 43239; 88305

== ENCOUNTER → 2025-04-09 | Outpatient (CLI) | payer OTHER, SELFPAY ==
[2025-04-09 13:36] LABS: ALB/GLOB Ratio 1.4 RATIO (0.9-2.4); AST(SGOT) 23 U/L (<=37); Alanine Aminotransfer ALT/SGPT 28 U/L (<=46); Albumin, Serum 4.1 g/dL (3.5-5.0); Alkaline Phosphatase 74 U/L (40-129); Anion Gap 11 (5-15); BUN 11 mg/dL (4-19); BUN/Creat Ratio 10.7 RATIO (10-20); Calcium,Total 9.4 mg/dL (7.6-11.0); Carbon Dioxide 22.8 mmol/L (21.0-32.0); Chloride 104 mmol/L (98-108); Cholesterol 124 mg/dL (<=200); Creatinine, Serum 1.03 mg/dL (0.70-1.20); EST Glomerular Filtration Rate 90 (>60); Globulin 2.9 g/dL (2.2-4.2); Glucose 100 mg/dL (70-99); HIV Nonreactive (Nonreactive); High Density Lipoprotein 49 mg/dL; Low Density Lipoprotein Calc. 64 mg/dL; Potassium 4.3 mmol/L (3.3-5.1); Sodium Level 138 mmol/L (133-145); Syphilis Antibodies Nonreactive (Nonreactive); Total Bilirubin 0.82 mg/dL (0.00-1.30); Triglycerides 51 mg/dL; Very Low Density Lipoprotein 10 mg/dL (5-40); Vitamin D,25 Hydroxy 31.4 ng/mL (30-100); cholesterol:hdl ratio screen 2.52
== END | disposition home or self-care (01) ==
LOC: MFPLAB 10:04
PROVIDERS: PCP Family Medicine; Referring Provider Family Medicine; Visit Provider Family Medicine
DX: Z00.00 Encounter for general adult medical examination without abnormal findings (principal); I10 Essential (primary) hypertension; Z11.3 Encounter for screening for infections with a predominantly sexual mode of transmission
CPT/HCPCS: 36415; 80053; 80061; 82306; 86703; 86780; 87491; 87591